=== PATIENT | male | born 1970 | race American Indian/Alaskan Native ===

== ENCOUNTER 2018-12-17 11:41 | Emergency (ER) | payer OTHER ==
--- NOTE | 2018-12-17 11:59 | Emergency Department Report ---
Blank Doc - Documentation Documentation: This is a 47-year-old male that presents with dizziness and with some fatigue. Stated had an CT with STEMI 2 months ago. Currently denies any chest pain or SOB. Denies any other symptoms. This initial assessment/diagnostic orders/clinical plan/treatment(s) is/are subject to change based on patient's health status, clinical progression and re- assessment by fellow clinical providers in the ED. Further treatment and workup at subsequent clinical providers discretion. Patient/guardians urged not to elope from the ED as their condition may be serious if not clinically assessed and managed. Initial orders include: 1- Patient sent to [facility] for further evaluation and treatment 2- labs 3- EKG
[2018-12-17 12:00] VITALS: BP 147/100
[2018-12-17 12:20] LABS: Basophils % (Auto) 0.5 % (0.0-1.8); Eosinophils # (Auto) 0.1 K/mm3 (0.0-0.4); Eosinophils % (Auto) 0.9 % (0.0-4.3); Hemoglobin 14.8 gm/dl (11.8-15.2); Lymphocytes # (Auto) 2.8 K/mm3 (1.2-5.4); Lymphocytes % (Auto) 45.3 % (13.4-35.0); Mean Corpuscular HGB Conc 35 % (32-34); Mean Corpuscular Volume 95 fl (84-94); Monocytes # (Auto) 0.9 K/mm3 (0.0-0.8); Platelet Count 230 K/mm3 (140-440); Red Blood Count 4.54 M/mm3 (3.65-5.03); Red Cell Distribution Width 12.5 % (13.2-15.2)
[2018-12-17 12:27] LABS: BUN/Creatinine Ratio 8; Blood Urea Nitrogen 8 mg/dL (9-20); Hemolysis Index 8
[2018-12-17 12:39] LABS: Bilirubin,Urine NEG (Negative); Blood,Urine NEG (Negative); Color,Urine Yellow (Yellow); Protein,Urine <15 mg/dL mg/dL (Negative)
== END 2018-12-17 13:00 | disposition left against medical advice (07) ==
LOC: ED 11:41
DX: R42 Dizziness and giddiness (principal); Z53.21 Procedure and treatment not carried out due to patient leaving prior to being seen by health care provider
CPT/HCPCS: 36415; 80048; 81001; 82962; 84484; 85025; 93005; 93010

== ENCOUNTER 2019-03-21 21:35 | Emergency (ER) | payer SELFPAY ==
--- NOTE | 2019-03-21 22:51 | XRay Report ---
CHEST 1 VIEW INDICATION / CLINICAL INFORMATION: Chest Pain. COMPARISON: 03/06/2019 FINDINGS: SUPPORT DEVICES: None. HEART / MEDIASTINUM: No significant abnormality. LUNGS / PLEURA: No significant pulmonary or pleural abnormality. No pneumothorax. ADDITIONAL FINDINGS: No significant additional findings. IMPRESSION: 1. No acute findings. Signer Name: Roland Swenson MD Signed: 03/21/2019 10:47 PM Workstation Name: [id number]
[2019-03-21 22:53] LABS: Basophils # (Auto) 0.1 K/mm3 (0.0-0.1); Basophils % (Auto) 0.9 % (0.0-1.8); Eosinophils # (Auto) 0.1 K/mm3 (0.0-0.4); Eosinophils % (Auto) 0.9 % (0.0-4.3); Hematocrit 41.2 % (35.5-45.6); Hemoglobin 14.1 gm/dl (11.8-15.2); Lymphocytes # (Auto) 3.1 K/mm3 (1.2-5.4); Lymphocytes % (Auto) 50.4 % (13.4-35.0); Mean Corpuscular HGB Conc 34 % (32-34); Mean Corpuscular Volume 94 fl (84-94); Monocytes # (Auto) 0.8 K/mm3 (0.0-0.8); Monocytes % (Auto) 12.6 % (0.0-7.3); Platelet Count 214 K/mm3 (140-440); Red Blood Count 4.36 M/mm3 (3.65-5.03); Red Cell Distribution Width 12.6 % (13.2-15.2)
[2019-03-21 23:04] LABS: INR 1.01 (0.87-1.13); Partial Thromboplastin Time 27.6 Sec. (24.2-36.6)
--- NOTE | 2019-03-21 23:04 | Emergency Department Report ---
ED General Adult HPI - General Chief complaint: High BP Stated complaint: ELEVATED BLOOD PRESSURE, CHEST PAIN Time Seen by Provider: 03/21/19 22:20 Source: patient Mode of arrival: Ambulatory Limitations: No Limitations - History of Present Illness Initial comments: CC: "I'm worried about my blood pressure." HPI: Mr. [place] is a very pleasant 48 yo male with hx of HTN, STEMI in September s/p PCI to LAD who presents with elevated blood pressure readings for several weeks. His medication has been adjusted in the inpatient and outpatient setting. Recently admitted 2 weeks ago for evaluation of chest pain. He denies current or recent chest pain. Denies shortness of breath, headache or any symptoms. His states that blood pressure readings SBP 150-160. He has yet to take his home medications. -: Gradual, week(s) (several) Severity scale (0 -10): 0 Consistency: now resolved Improves with: none Worsens with: none Associated Symptoms: denies other symptoms Treatments Prior to Arrival: other (home medictions) - Related Data Previous Rx's Medication Instructions Recorded Last Taken Type Aspirin [Aspirin EC] 81 mg PO DAILY #30 tablet. 10/06/18 03/06/19 Rx AtorvaSTATin [Lipitor] 40 mg PO QHS #30 tablet 10/06/18 03/05/19 Rx Lisinopril [Zestril TAB] 20 mg PO QDAY #30 tablet 10/06/18 03/05/19 Rx Clopidogrel [Plavix] 75 mg PO QDAY #30 tablet 03/07/19 Unknown Rx Metoprolol [Lopressor TAB] 50 mg PO BID #60 tablet 03/07/19 Unknown Rx Allergies Allergy/AdvReac Type Severity Reaction Status Date / Time No Known Allergies Allergy Verified 11/12/13 06:54 ED Review of Systems ROS: Stated complaint: ELEVATED BLOOD PRESSURE, CHEST PAIN Other details as noted in HPI Comment: All other systems reviewed and negative Constitutional: denies: fever, malaise Cardiovascular: denies: chest pain, palpitations, edema ED Past Medical Hx - Past Medical History Previous Medical History?: Yes Hx Hypertension: Yes Hx Heart Attack/AMI: Yes Hx Congestive Heart Failure: No Hx Diabetes: No Hx Asthma: No Hx COPD: No Hx HIV: No - Surgical History Past Surgical History?: Yes Hx Coronary Stent: Yes (1 stent 10/04/2018) - Social History Smoking Status: Former Smoker Substance Use Type: Marijuana - Medications Home Medications: Home Medications Medication Instructions Recorded Confirmed Last Taken Type Aspirin [Aspirin EC] 81 mg PO DAILY #30 tablet. 10/06/18 03/06/19 03/06/19 Rx AtorvaSTATin [Lipitor] 40 mg PO QHS #30 tablet 10/06/18 03/06/19 03/05/19 Rx Lisinopril [Zestril TAB] 20 mg PO QDAY #30 tablet 10/06/18 03/06/19 03/05/19 Rx Clopidogrel [Plavix] 75 mg PO QDAY #30 tablet 03/07/19 Unknown Rx Metoprolol [Lopressor TAB] 50 mg PO BID #60 tablet 03/07/19 Unknown Rx ED Physical Exam - General Limitations: No Limitations General appearance: alert, in no apparent distress - Head Head exam: Present: atraumatic, normocephalic - Eye Eye exam: Present: normal appearance - ENT ENT exam: Present: mucous membranes moist - Neck Neck exam: Present: normal inspection, full ROM - Respiratory Respiratory exam: Present: normal lung sounds bilaterally. Absent: respiratory distress, wheezes, rales, rhonchi - Cardiovascular Cardiovascular Exam: Present: regular rate, normal rhythm, normal heart sounds. Absent: systolic murmur, diastolic murmur, rubs, gallop - GI/Abdominal GI/Abdominal exam: Present: soft, normal bowel sounds. Absent: distended, tenderness, guarding, rebound - Rectal Rectal exam: Present: deferred - Extremities Exam Extremities exam: Present: normal inspection - Back Exam Back exam: Present: normal inspection - Neurological Exam Neurological exam: Present: alert, oriented X3 - Psychiatric Psychiatric exam: Present: normal affect, normal mood - Skin Skin exam: Present: warm, dry, intact, normal color. Absent: rash ED Course Vital Signs 03/21/19 03/21/19 21:54 22:19 Temperature 98.3 F 98.3 F Pulse Rate 77 74 Respiratory 16 13 Rate Blood Pressure 160/100 Blood Pressure 157/100 [Left] O2 Sat by Pulse 99 100 Oximetry ED Medical Decision Making - Lab Data Result diagrams: 03/21/19 22:30 - EKG Data EKG shows normal: sinus rhythm, axis, intervals, QRS complexes, ST-T waves Rate: normal - EKG Data Interpretation: normal EKG - Radiology Data Radiology results: report reviewed cxr: NAP - Medical Decision Making Hypertensive Urgency Asymptomatic without treatment in ED BP decreased to 139/89 currently no adjustment to medication needed No indication of ACS or end organ damage. dc'd home EKG CXR labs all within normal limits Critical care attestation.: If time is entered above; I have spent that time in minutes in the direct care of this critically ill patient, excluding procedure time. ED Disposition Clinical Impression: Hypertensive urgency, Asymptomatic hypertensive urgency, History of ST e levation myocardial infarction (STEMI) Disposition: DC-01 TO HOME OR SELFCARE Is pt being admited?: No Does the pt Need Aspirin: No Condition: Stable Instructions: Hypertension (ED) Additional Instructions: Please continue taking your medication. Please take your blood pressure readings to your heart doctor. Please take this paperwork to your next doctor appointment. Referrals: AZRA LARSON MD [Staff Physician] - 3-5 Days Forms: Work/School Release Form(ED)
[2019-03-21 23:14] LABS: BUN/Creatinine Ratio 12; Blood Urea Nitrogen 11 mg/dL (9-20); Calcium 8.8 mg/dL (8.4-10.2); Hemolysis Index 7
[2019-03-22 00:36] VITALS: BP 135/82
== END 2019-03-21 23:30 | disposition home or self-care (01) ==
LOC: ED 21:35
DX: I25.2 Old myocardial infarction (principal); I16.0 Hypertensive urgency; I10 Essential (primary) hypertension; F12.10 Cannabis abuse, uncomplicated; Z87.891 Personal history of nicotine dependence
CPT/HCPCS: 36415; 71045; 80048; 84484; 85025; 85610; 85730; 93005; 93010

== ENCOUNTER 2019-04-30 10:41 | Emergency (ER) | payer SELFPAY ==
[2019-04-30] MEDS ORDERED: ASPIRIN 81 MG TAB CHEW PO ONE (11:13)
[2019-04-30] MEDS ORDERED: ASPIRIN 81 MG TAB CHEW ONE (11:16)
--- NOTE | 2019-04-30 11:16 | Event Note ---
ED Screening Note Date of service: 04/30/19 Time: 11:11 ED Screening Note: Pt complains of SOB and elevated BP x yesterday SOB with exertion +CP +hx of [place] 2019 with heart stents This initial assessment/diagnostic orders/clinical plan/treatment(s) is/are subject to change based on patients health status, clinical progression and re- assessment by fellow clinical providers in the ED. Further treatment and workup at subsequent clinical providers discretion. Patient/guardian urged not to elope from the ED as their condition may be serious if not clinically assessed and managed. Initial orders include: Labs CXR aspirin
--- NOTE | 2019-04-30 12:24 | XRay Report ---
CHEST PA AND LATERAL VIEWS INDICATION: Chest Pain. COMPARISON: 03/21/2019. FINDINGS: Support devices: None. Heart: Within normal limits. Lungs/Pleura: No acute pulmonary or pleural findings. No acute skeletal abnormality. IMPRESSION: 1. No significant abnormality. Signer Name: Eugenio Calhoun MD Signed: 04/30/2019 12:20 PM Workstation Name: [id number]
[2019-04-30 12:42] LABS: Hematocrit 46.2 % (35.5-45.6); Hemoglobin 15.4 gm/dl (11.8-15.2); Mean Corpuscular HGB Conc 33 % (32-34); Mean Corpuscular Volume 94 fl (84-94); Red Blood Count 4.89 M/mm3 (3.65-5.03); Red Cell Distribution Width 12.6 % (13.2-15.2)
[2019-04-30 13:08] LABS: Alanine Aminotransferase 32 units/L (7-56); Albumin 4.6 g/dL (3.9-5); BUN/Creatinine Ratio 10; Blood Urea Nitrogen 10 mg/dL (9-20); Calcium 9.1 mg/dL (8.4-10.2); Hemolysis Index 6
--- NOTE | 2019-04-30 13:49 | Emergency Department Report ---
ED General Adult HPI - General Chief complaint: Dyspnea/Respdistress Stated complaint: SOB/HBP/HX OF STINT Time Seen by Provider: 04/30/19 11:11 Source: patient Mode of arrival: Ambulatory Limitations: No Limitations - History of Present Illness Initial comments: The patient presents to the emergency department with a chief complaint of bilateral chest pain that started on Monday after lifting outdoor pottery. Patient states that any movement of his upper extremities causes pain in his chest. Without movement there is no chest pain but states the patient states since he has a history of NM he wanted to come to the emergency department for evaluation. Patient also complains of fluctuating blood pressures and is currently on lisinopril, metoprolol, Norvasc.The patient denies SOB, abdominal pain, or MALONE. The patient states his BP was greater than 200 systolically at home. states it was 202/150 at home -: Gradual Location: chest Severity scale (0 -10): 5 Quality: aching Consistency: constant Improves with: rest Worsens with: movement Associated Symptoms: denies other symptoms Treatments Prior to Arrival: none - Related Data Previous Rx's Medication Instructions Recorded Last Taken Type Aspirin [Aspirin EC] 81 mg PO DAILY #30 tablet. 10/06/18 03/06/19 Rx AtorvaSTATin [Lipitor] 40 mg PO QHS #30 tablet 10/06/18 03/05/19 Rx Lisinopril [Zestril TAB] 20 mg PO QDAY #30 tablet 10/06/18 03/05/19 Rx Clopidogrel [Plavix] 75 mg PO QDAY #30 tablet 03/07/19 Unknown Rx Metoprolol [Lopressor TAB] 50 mg PO BID #60 tablet 03/07/19 Unknown Rx Allergies Allergy/AdvReac Type Severity Reaction Status Date / Time No Known Allergies Allergy Verified 11/12/13 06:54 ED Review of Systems ROS: Stated complaint: SOB/HBP/HX OF STINT Other details as noted in HPI Constitutional: denies: chills, fever Eyes: denies: eye pain, eye discharge, vision change ENT: denies: ear pain, throat pain Respiratory: denies: cough, shortness of breath, wheezing Cardiovascular: chest pain. denies: palpitations Endocrine: no symptoms reported Gastrointestinal: abdominal pain. denies: nausea, diarrhea Genitourinary: denies: urgency, dysuria Musculoskeletal: denies: back pain, joint swelling, arthralgia Skin: denies: rash, lesions Neurological: denies: headache, weakness, paresthesias Psychiatric: denies: anxiety, depression Hematological/Lymphatic: denies: easy bleeding, easy bruising ED Past Medical Hx - Past Medical History Hx Hypertension: Yes Hx Heart Attack/AMI: Yes Hx Congestive Heart Failure: No Hx Diabetes: No Hx Asthma: No Hx COPD: No Hx HIV: No - Surgical History Past Surgical History?: Yes Hx Coronary Stent: Yes (1 stent 10/04/2018) - Social History Smoking Status: Former Smoker Substance Use Type: Alcohol - Medications Home Medications: Home Medications Medication Instructions Recorded Confirmed Last Taken Type Aspirin [Aspirin EC] 81 mg PO DAILY #30 tablet. 10/06/18 03/06/19 03/06/19 Rx AtorvaSTATin [Lipitor] 40 mg PO QHS #30 tablet 10/06/18 03/06/19 03/05/19 Rx Lisinopril [Zestril TAB] 20 mg PO QDAY #30 tablet 10/06/18 03/06/19 03/05/19 Rx Clopidogrel [Plavix] 75 mg PO QDAY #30 tablet 03/07/19 Unknown Rx Metoprolol [Lopressor TAB] 50 mg PO BID #60 tablet 03/07/19 Unknown Rx ED Physical Exam - General Limitations: No Limitations General appearance: alert, in no apparent distress - Head Head exam: Present: atraumatic, normocephalic - Eye Eye exam: Present: normal appearance, PERRL, EOMI - ENT ENT exam: Present: mucous membranes moist - Neck Neck exam: Present: normal inspection - Respiratory Respiratory exam: Present: normal lung sounds bilaterally, chest wall tenderness (chest wall tenderness to palpation bilaterally). Absent: respiratory distress - Cardiovascular Cardiovascular Exam: Present: regular rate, normal rhythm. Absent: systolic murmur, diastolic murmur, rubs, gallop - GI/Abdominal GI/Abdominal exam: Present: soft, tenderness (tenderness to palpation of right lower quadrant of abdomen and), normal bowel sounds. Absent: distended - Rectal Rectal exam: Present: deferred - Extremities Exam Extremities exam: Present: normal inspection - Back Exam Back exam: Present: normal inspection - Neurological Exam Neurological exam: Present: alert, oriented X3, CN II-XII intact. Absent: motor sensory deficit - Psychiatric Psychiatric exam: Present: normal affect, normal mood - Skin Skin exam: Present: warm, dry, intact, normal color. Absent: rash ED Course Vital Signs 04/30/19 04/30/19 04/30/19 11:08 12:30 13:30 Temperature 98.3 F Pulse Rate 66 60 Respiratory 20 13 Rate Blood Pressure 180/106 165/101 139/90 O2 Sat by Pulse 100 98 99 Oximetry ED Medical Decision Making - Lab Data Result diagrams: 04/30/19 12:23 04/30/19 12:23 Lab Results 04/30/19 04/30/19 Range/Units 12:23 12:23 WBC 6.5 (4.5-11.0) K/mm3 RBC 4.89 (3.65-5.03) M/mm3 Hgb 15.4 H (11.8-15.2) gm/dl Hct 46.2 H (35.5-45.6) % MCV 94 (84-94) fl MCH 32 (28-32) pg MCHC 33 (32-34) % RDW 12.6 L (13.2-15.2) % Sodium 142 (137-145) mmol/L Potassium 4.2 (3.6-5.0) mmol/L Chloride 104.5 (98-107) mmol/L Carbon Dioxide 24 (22-30) mmol/L Anion Gap 18 mmol/L BUN 10 (9-20) mg/dL Creatinine 1.0 (0.8-1.5) mg/dL Estimated GFR > 60 ml/min BUN/Creatinine Ratio 10 % Glucose 105 H (75-100) mg/dL Calcium 9.1 (8.4-10.2) mg/dL Total Bilirubin 1.10 (0.1-1.2) mg/dL AST 27 (5-40) units/L ALT 32 (7-56) units/L Alkaline Phosphatase 76 (35-129) units/L Troponin T < 0.010 (0.00-0.029) ng/mL NT-Pro-B Natriuret Pep 116.9 (0-450) pg/mL Total Protein 7.2 (6.3-8.2) g/dL Albumin 4.6 (3.9-5) g/dL Albumin/Globulin Ratio 1.8 % - EKG Data -: EKG Interpreted by Nv EKG shows normal: sinus rhythm Rate: normal - Radiology Data Radiology results: report reviewed - Medical Decision Making Results discussed with patient Critical care attestation.: If time is entered above; I have spent that time in minutes in the direct care of this critically ill patient, excluding procedure time. ED Disposition Clinical Impression: Hypertension, Nonspecific chest pain, Chest wall pain Disposition: DC- TO HOME OR SELFCARE Is pt being admited?: No Does the pt Need Aspirin: No Condition: Stable Instructions: Hypertension (ED), Noncardiac Chest Pain (ED), Chest Pain (ED) Additional Instructions: return if worse Referrals: ERIKA JAUREGUI MD [Staff Physician] - 3-5 Days MURALI LARSON MD [Staff Physician] - 3-5 Days Time of Disposition: 14:54
[2019-04-30 14:14] LABS: Platelet Count 234 K/mm3 (140-440)
[2019-04-30 15:14] VITALS: BP 150/92
== END 2019-04-30 15:08 | disposition home or self-care (01) ==
LOC: ED 10:41
DX: R07.89 Other chest pain (principal); I25.2 Old myocardial infarction; I10 Essential (primary) hypertension; Z95.5 Presence of coronary angioplasty implant and graft; Z87.891 Personal history of nicotine dependence
CPT/HCPCS: 36415; 71046; 80053; 83880; 84484; 85027; 93005; 93010

== ENCOUNTER 2019-07-06 13:29 | Emergency (ER) | payer SELFPAY ==
--- NOTE | 2019-07-06 13:39 | Event Note ---
ED Screening Note Date of service: 07/06/19 Time: 13:37 ED Screening Note: Pt complains of itchy burning rash x 2 weeks states daughter had scabies 2 months ago-tried permethrin but did not help This initial assessment/diagnostic orders/clinical plan/treatment(s) is/are subject to change based on patients health status, clinical progression and re- assessment by fellow clinical providers in the ED. Further treatment and workup at subsequent clinical providers discretion. Patient/guardian urged not to elope from the ED as their condition may be serious if not clinically assessed and managed. Initial orders include: ACC
[2019-07-06 13:40] VITALS: BP 155/103
--- NOTE | 2019-07-06 17:42 | Emergency Department Report ---
ED General Adult HPI - General Chief complaint: Skin Rash Stated complaint: RASH Time Seen by Provider: 07/06/19 13:36 Source: patient Mode of arrival: Ambulatory Limitations: No Limitations - History of Present Illness Initial comments: Pt complains of itchy burning rash x 2 weeks. States his daughter had scabies 2 months ago-tried permethrin but did not help. Denies others in home with same symptoms. Pt also denies fever, drainage, cough, or fatigue. -: Sudden Consistency: constant Improves with: none Worsens with: none Treatments Prior to Arrival: other - Related Data Previous Rx's Medication Instructions Recorded Last Taken Type Aspirin [Aspirin EC] 81 mg PO DAILY #30 tablet. 10/06/18 03/06/19 Rx AtorvaSTATin [Lipitor] 40 mg PO QHS #30 tablet 10/06/18 03/05/19 Rx lisinopriL [Zestril TAB] 20 mg PO QDAY #30 tablet 10/06/18 03/05/19 Rx Clopidogrel [Plavix] 75 mg PO QDAY #30 tablet 03/07/19 Unknown Rx Metoprolol [Lopressor TAB] 50 mg PO BID #60 tablet 03/07/19 Unknown Rx Prednisone [predniSONE 10 mg 10 mg PO .TAPER #1 tab.ds.pk 07/06/19 Unknown Rx (6-Day Pack, 21 Tabs)] Triamcinolone Acetonide 80 gm TP TID PRN 7 Days #1 tube 07/06/19 Unknown Rx Allergies Allergy/AdvReac Type Severity Reaction Status Date / Time No Known Allergies Allergy Verified 11/12/13 06:54 ED Review of Systems ROS: Stated complaint: RASH Other details as noted in HPI Comment: All other systems reviewed and negative Skin: rash ED Past Medical Hx - Past Medical History Hx Hypertension: Yes Hx Heart Attack/AMI: Yes Hx Congestive Heart Failure: No Hx Diabetes: No Hx Asthma: No Hx COPD: No Hx HIV: No - Surgical History Hx Coronary Stent: Yes (1 stent 10/04/2018) - Social History Smoking Status: Never Smoker Substance Use Type: Alcohol - Medications Home Medications: Home Medications Medication Instructions Recorded Confirmed Last Taken Type Aspirin [Aspirin EC] 81 mg PO DAILY #30 tablet. 10/06/18 03/06/19 03/06/19 Rx AtorvaSTATin [Lipitor] 40 mg PO QHS #30 tablet 04/03/06/19 03/05/19 Rx lisinopriL [Zestril TAB] 20 mg PO QDAY #30 tablet 10/06/18 03/06/19 03/05/19 Rx Clopidogrel [Plavix] 75 mg PO QDAY #30 tablet 03/07/19 Unknown Rx Metoprolol [Lopressor TAB] 50 mg PO BID #60 tablet 03/07/19 Unknown Rx Prednisone [predniSONE 10 mg 10 mg PO .TAPER #1 tab.ds.pk 07/06/19 Unknown Rx (6-Day Pack, 21 Tabs)] Triamcinolone Acetonide 80 gm TP TID PRN 7 Days #1 tube 07/06/19 Unknown Rx ED Physical Exam - General Limitations: No Limitations General appearance: alert, in no apparent distress - Head Head exam: Present: atraumatic, normocephalic - Eye Eye exam: Present: normal appearance. Absent: scleral icterus - ENT ENT exam: Present: normal orophraynx, mucous membranes moist - Respiratory Respiratory exam: Absent: respiratory distress - Cardiovascular Cardiovascular Exam: Present: regular rate - Neurological Exam Neurological exam: Present: alert, oriented X3 - Psychiatric Psychiatric exam: Present: normal affect, normal mood - Skin Skin exam: Present: warm, dry, intact, rash (dry papular nontender rash noted to right axilla, left thorax, lower back, and right hip. No erythema noted) ED Course Vital Signs 07/06/19 13:35 Temperature 98.2 F Pulse Rate 80 Respiratory 16 Rate Blood Pressure 155/103 O2 Sat by Pulse 100 Oximetry ED Medical Decision Making - Medical Decision Making Pt here with itchy rash x 2 weeks. No improvement with permethrin. Will treat for contact dermatitis. Pt is nontoxic and stable for d/c home. Pt to f/u with PCP. Discussed strict return precautions in detail with pt who states understanding. Critical care attestation.: If time is entered above; I have spent that time in minutes in the direct care of this critically ill patient, excluding procedure time. ED Disposition Clinical Impression: Rash Disposition: -01 TO HOME OR SELFCARE Is pt being admited?: No Condition: Stable Instructions: Contact Dermatitis (ED) Prescriptions: Prednisone [predniSONE 10 mg (6-Day Pack, 21 Tabs)] 10 mg PO .TAPER #1 tab.ds.pk Triamcinolone Acetonide 80 gm TP TID PRN 7 Days #1 tube PRN Reason: itching Referrals: AN ROBLES MD [Staff Physician] - 3-5 Days
== END 2019-07-06 17:54 | disposition home or self-care (01) ==
LOC: ED 13:29
DX: R21 Rash and other nonspecific skin eruption (principal); I10 Essential (primary) hypertension; I25.2 Old myocardial infarction; Z79.899 Other long term (current) drug therapy
CPT/HCPCS: 99281

== ENCOUNTER 2019-09-09 11:15 | Inpatient (IN) | payer OTHER ==
[2019-09-09] MEDS ORDERED: ASPIRIN 325 MG TAB PO ONE (11:41)
--- NOTE | 2019-09-09 12:36 | XRay Report ---
CHEST 2 VIEWS INDICATION: Chest Pain. COMPARISON: 04/30/2019 FINDINGS: Support devices: None. Heart: Within normal limits. Pulmonary vasculature: Normal. Lungs/pleura: No acute air space or interstitial disease. No pneumothorax. Additional findings: None. IMPRESSION: 1. No significant abnormality. Signer Name: Merlin Winchester MD Signed: 09/09/2019 12:32 PM Workstation Name: [id number]
--- NOTE | 2019-09-09 12:39 | Emergency Department Report ---
ED Chest Pain HPI - General Chief Complaint: Chest Pain Stated Complaint: CHEST PAIN, SOB, HAS STINT IN HEART Time Seen by Provider: 09/09/19 12:22 Source: patient Mode of arrival: Ambulatory Limitations: Other - History of Present Illness Initial Comments: 48-year-old male with a past medical history of [place] with stent placement October 04, 2018 and hypertension presents to the hospital complains of chest tightness, shortness of breath, lightheadedness since yesterday. While at rest yesterday patient had chest tightness with associated shortness of breath, dizziness, and diaphoresis. Patient had one episode of vomiting during the day. Pain lasted for several hours before resolving. Has not had any pain today. Patient also complains of a runny nose occasional dry cough with subjective fever x 2 days but it has been breaking with otc meds. states pt has been sick x 1 week. Patient also states has been experiencing shortness of breath since last time he was here and is concerned that he might have anxiety. He denies recent travel, calf tenderness, leg edema, history of PE/DVT, sick contact exposure or known COVID 19 exposure. Patient states he stopped smoking and has been compliant with meds. Pt is unable to read or write and his assists with consenting him for treatment when in hospital. - Related Data Previous Rx's Medication Instructions Recorded Last Taken Type Aspirin [Aspirin EC] 81 mg PO DAILY #30 tablet. 10/06/18 03/06/19 Rx AtorvaSTATin [Lipitor] 40 mg PO QHS #30 tablet 10/06/18 03/05/19 Rx lisinopriL [Zestril TAB] 20 mg PO QDAY #30 tablet 10/06/18 03/05/19 Rx Clopidogrel [Plavix] 75 mg PO QDAY #30 tablet 03/07/19 Unknown Rx Metoprolol [Lopressor TAB] 50 mg PO BID #60 tablet 03/07/19 Unknown Rx Prednisone [predniSONE 10 mg 10 mg PO .TAPER #1 tab.ds.pk 07/06/19 Unknown Rx (6-Day Pack, 21 Tabs)] Triamcinolone Acetonide 80 gm TP TID PRN 7 Days #1 tube 07/06/19 Unknown Rx Allergies Allergy/AdvReac Type Severity Reaction Status Date / Time No Known Allergies Allergy Verified 11/12/13 06:54 Heart Score - HEART Score History: Moderately suspicious EKG: Non-specific Age: 45-65 Risk factors: > 3 risk factors or hx of atherosclerotic disease Troponin: < normal limit HEART Score: 5 ED Review of Systems ROS: Stated complaint: CHEST PAIN, SOB, HAS STINT IN HEART Other details as noted in HPI Comment: All other systems reviewed and negative ED Past Medical Hx - Past Medical History Previous Medical History?: Yes Hx Hypertension: Yes Hx Heart Attack/AMI: Yes Hx Congestive Heart Failure: No Hx Diabetes: No Hx Asthma: No Hx COPD: No Hx HIV: No - Surgical History Past Surgical History?: Yes Hx Coronary Stent: Yes (1 stent 10/04/2018) - Social History Smoking Status: Never Smoker Substance Use Type: Alcohol - Medications Home Medications: Home Medications Medication Instructions Recorded Confirmed Last Taken Type Aspirin [Aspirin EC] 81 mg PO DAILY #30 tablet. 10/06/18 03/06/19 03/06/19 Rx AtorvaSTATin [Lipitor] 40 mg PO QHS #30 tablet 10/06/18 03/06/19 03/05/19 Rx lisinopriL [Zestril TAB] 20 mg PO QDAY #30 tablet 10/06/18 03/06/19 03/05/19 Rx Clopidogrel [Plavix] 75 mg PO QDAY #30 tablet 03/07/19 Unknown Rx Metoprolol [Lopressor TAB] 50 mg PO BID #60 tablet 03/07/19 Unknown Rx Prednisone [predniSONE 10 mg 10 mg PO .TAPER #1 tab.ds.pk 07/06/19 Unknown Rx (6-Day Pack, 21 Tabs)] Triamcinolone Acetonide 80 gm TP TID PRN 7 Days #1 tube 07/06/19 Unknown Rx ED Physical Exam - General Limitations: Other - Other Other exam information: General: No acute distress Head: Atraumatic Eyes: normal appearance ENT: Moist mucous membranes Neck: Normal appearance, no midline tenderness Chest: mild rhonchi left base, left post thoracic tenderness, mild CV: Regular rate and rhythm Abdomen: Soft, normal bowel sounds, nontender, nondistended, no rebound or guarding Back: Normal inspection Extremity: Normal inspection, full range of motion, no calf tenderness or leg edema Neuro: Alert O x 3, no facial asymmetry, speech clear, no gross motor sensory deficit Psych: Appropriate behavior Skin: No rash ED Course Vital Signs 0309/09/19 09/09/19 11:40 13:53 14:01 Temperature 97.5 F L Pulse Rate 66 64 Respiratory 18 14 Rate Blood Pressure 160/92 Blood Pressure 174/110 [Right] O2 Sat by Pulse 98 100 100 Oximetry 09/09/19 09/09/19 09/09/19 14:15 14:35 14:56 Temperature Pulse Rate 64 91 H Respiratory 10 L 16 19 Rate Blood Pressure 160/92 Blood Pressure [Right] O2 Sat by Pulse 99 99 Oximetry 09/09/19 09/09/19 09/09/19 15:00 15:16 15:30 Temperature Pulse Rate 78 64 85 Respiratory Rate Blood Pressure 160/92 156/93 Blood Pressure [Right] O2 Sat by Pulse 99 99 99 Oximetry - Consultations Consultation #1: 09/09/19 15:59 I spoke to patient's on the phone and informed her that pt is in isolation until covi19 testing/results reviewed. She does not have any symptoms. She was informed to self isolate for 14 days. DMITRY score - Dmitry Score Age > 65: (0) No Aspirin use within the Past 7 Days: (1) Yes 3 or more CAD Risk Factors: (1) Yes 2 or more Angina events in past 24 hrs: (1) Yes Known CAD with more than 50% Stenosis: (0) No Elevated Cardiac Markers: (0) No ST Deviation Greater than 0.5mm: (0) No DMITRY Score: 3 ED Medical Decision Making - Lab Data Result diagrams: 09/09/19 12:52 09/09/19 12:52 Lab Results 09/09/19 09/09/19 09/09/19 Range/Units 12:52 12:52 12:52 WBC 4.8 (4.5-11.0) K/mm3 RBC 4.91 (3.65-5.03) M/mm3 Hgb 15.5 H (11.8-15.2) gm/dl Hct 45.5 (35.5-45.6) % MCV 93 (84-94) fl MCH 32 (28-32) pg MCHC 34 (32-34) % RDW 12.4 L (13.2-15.2) % Plt Count 202 (140-440) K/mm3 Add Manual Diff Complete Total Counted 100 Seg Neutrophils % Car Pincher Seg Neuts % (Manual) 38.0 L (40.0-70.0) % Band Neutrophils % 0 % Lymphocytes % (Manual) 50.0 H (13.4-35.0) % Reactive Lymphs % (Man) 0 % Monocytes % (Manual) 12.0 H (0.0-7.3) % Eosinophils % (Manual) 0 (0.0-4.3) % Basophils % (Manual) 0 (0.0-1.8) % Metamyelocytes % 0 % Myelocytes % 0 % Promyelocytes % 0 % Blast Cells % 0 % Nucleated RBC % Not Reportable Seg Neutrophils # Man 1.8 (1.8-7.7) K/mm3 Band Neutrophils # 0.0 K/mm3 Lymphocytes # (Manual) 2.4 (1.2-5.4) K/mm3 Abs React Lymphs (Man) 0.0 K/mm3 Monocytes # (Manual) 0.6 (0.0-0.8) K/mm3 Eosinophils # (Manual) 0.0 (0.0-0.4) K/mm3 Basophils # (Manual) 0.0 (0.0-0.1) K/mm3 Metamyelocytes # 0.0 K/mm3 Myelocytes # 0.0 K/mm3 Promyelocytes # 0.0 K/mm3 Blast Cells # 0.0 K/mm3 WBC Morphology Not Reportable Hypersegmented Neuts Not Reportable Hyposegmented Neuts Not Reportable Hypogranular Neuts Not Reportable Smudge Cells Not Reportable Toxic Granulation Not Reportable Toxic Vacuolation Not Reportable Dohle Bodies Not Reportable Pelger-Huet Anomaly Not Reportable Jean Rods Not Reportable Platelet Estimate Cons Clumped Platelets Not Reportable Plt Clumps, EDTA Not Reportable Large Platelets Not Reportable Giant Platelets Not Reportable Platelet Satelliting Not Reportable Plt Morphology Comment Not Reportable RBC Morphology Normal Dimorphic RBCs Not Reportable Polychromasia Not Reportable Hypochromasia Not Reportable Poikilocytosis Not Reportable Anisocytosis Not Reportable Microcytosis Not Reportable Macrocytosis Not Reportable Spherocytes Not Reportable Pappenheimer Bodies Not Reportable Sickle Cells Not Reportable Target Cells Not Reportable Tear Drop Cells Not Reportable Ovalocytes Not Reportable Helmet Cells Not Reportable Baum-Luquillo Bodies Not Reportable Argos Rings Not Reportable Trang Cells Not Reportable Bite Cells Not Reportable Crenated Cell Not Reportable Elliptocytes Not Reportable Acanthocytes (Spur) Not Reportable Rouleaux Not Reportable Hemoglobin C Crystals Not Reportable Schistocytes Not Reportable Malaria parasites Not Reportable Jasper Bodies Not Reportable Hem Pathologist Commnt No PT 12.6 (12.2-14.9) Sec. INR 0.93 (0.87-1.13) D-Dimer 438.38 H (0-234) ng/mlDDU Sodium 140 (137-145) mmol/L Potassium 4.4 (3.6-5.0) mmol/L Chloride 102.5 (98-107) mmol/L Carbon Dioxide 23 (22-30) mmol/L Anion Gap 19 mmol/L BUN 8 L (9-20) mg/dL Creatinine 1.2 (0.8-1.5) mg/dL Estimated GFR > 60 ml/min BUN/Creatinine Ratio 7 % Glucose 87 (75-100) mg/dL Calcium 9.3 (8.4-10.2) mg/dL Troponin T < 0.010 (0.00-0.029) ng/mL - EKG Data -: EKG Interpreted by [facility] EKG shows normal: sinus rhythm, ST-T waves (no stemi) Rate: normal - EKG Data When compared to previous EKG there are: no significant change - Radiology Data Radiology results: report reviewed CHEST 2 VIEWS INDICATION: Chest Pain. COMPARISON: 04/30/2019 FINDINGS: Support devices: None. Heart: Within normal limits. Pulmonary vasculature: Normal. Lungs/pleura: No acute air space or interstitial disease. No pneumothorax. Additional findings: None. IMPRESSION: 1. No significant abnormality. - Medical Decision Making pt initially c/o chest pain with persistant sob and mild uri sx. CXR with b/l pneumonia without leukocytosis, lymphopenia, or hypoxia. Patient is a cardiac patient with history of stent. CT chest results reviewed patient placed in re spiratory isolation and request will be sent for possible COVID19 testing. Patient will be treated for community-acquired pneumonia with Rocephin and azithromycin and supportive treatment. Troponin negative with no acute EKG findings. informed and encouraged to self isolate 14 days. She denies any sx currently. - Differential Diagnosis cad, chf, pe, pneumonia Critical Care Time: No Critical care attestation.: If time is entered above; I have spent that time in minutes in the direct care of this critically ill patient, excluding procedure time. ED Disposition Clinical Impression: Stented coronary artery, Bilateral pneumonia Disposition: OP ADMIT IP TO THIS HOSP Is pt being admited?: Yes Condition: Stable Time of Disposition: 15:28
[2019-09-09 13:25] LABS: Hematocrit 45.5 % (35.5-45.6); Hemoglobin 15.5 gm/dl (11.8-15.2); Mean Corpuscular HGB Conc 34 % (32-34); Mean Corpuscular Volume 93 fl (84-94); Platelet Count 202 K/mm3 (140-440); Red Blood Count 4.91 M/mm3 (3.65-5.03); Red Cell Distribution Width 12.4 % (13.2-15.2)
[2019-09-09 13:33] LABS: INR 0.93 (0.87-1.13)
[2019-09-09 13:39] LABS: BUN/Creatinine Ratio 7; Blood Urea Nitrogen 8 mg/dL (9-20); Calcium 9.3 mg/dL (8.4-10.2); Hemolysis Index 2
[2019-09-09 14:48] LABS: Basophils % (Manual) 0 % (0.0-1.8); Eosinophils % (Manual) 0 % (0.0-4.3); Total Cells Counted 100
[2019-09-09 14:49] LABS: Platelet Estimate Cons; RBC Morphology Normal
--- NOTE | 2019-09-09 15:05 | Cat Scan Report ---
CTA CHEST WITH CONTRAST INDICATION : elevated ddimer, cp, sob. TECHNIQUE: Axial imaging performed through the chest, with contrast bolus timing set to maximize opa cification of the pulmonary arteries. 3-plane MIP reformatted images were obtained. All CT scans at this location are performed using CT dose reduction for ALARA by means of automated exposure control. 100 mL of intravenous contrast administered. Consent was obtained prior to the administration of cont rast. COMPARISON: A same day chest x-ray. FINDINGS: Bolus: Contrast bolus timing is adequate. PTE: No filling defect is present to suggest PTE. Mediastinum: Heart and great vessels appear normal. No pathologic mediastinal adenopathy. Lungs: Numerous bilateral multilobar small patchy lung opacities diffusely involving the right upper lobe and the left lower lobe. Fewer patchy lung opacities of the left upper lobe, right middle lobe and right lower lobe. No pulmonary consolidation. No pleural effusion. Upper abdomen: Limited imaging of the upper abdomen shows nothing acute. Bones: Degenerative changes in the spine with nothing acute. IMPRESSION: 1. Negative for PTE. 2. Multi lobar bilateral patchy pneumonia. Signer Name: Merlin Winchester MD Signed: 09/09/2019 3:01 PM Workstation Name: [id number]
[2019-09-09] MEDS ORDERED: cefTRIAXone/NS 1 GM/50 ML 1 GM/50 ML BAG IV ONE (15:18)
[2019-09-09] MEDS ORDERED: AZITHROMYCIN 500 MG in SODIUM CHLORIDE 0.9% 250ML 250 ML IV ONE (16:00)
--- NOTE | 2019-09-09 16:50 | History and Physical Report ---
History of Present Illness Chief complaint: It is hard for me to breathe and I keep coughing History of present illness: 48 YO Male with Nicotine Dependence, SD, CAD S/P Stent Placement currently on DAPT, Vertigo presents to ED for evaluation. Pt states that he has experienced shortness of breath, dry cough, subjective fever, generalized weakness, rhinorrhea over the past 2 days with persistent symptoms over the same timeframe. Patient states that symptoms have not resolved with [id number] medications. Patient also reports chest tightness, dyspnea on exertion. Patient transported to [facility] via private vehicle for further evaluation and care. Patient seen and evaluated in the emergency department. Lab and imaging studies reviewed. Patient underwent CT scan of the chest as well as chest x-ray which r evealed bilateral patchy infiltrate consistent with pneumonia. Patient admitted to medical floor and initiated on pneumonia protocol due to increased risk of pulmonary decompensation. Patient also initiated on [place] 19 protocol. Documentation completed in ED and sent to health department. Patient denies palpitations, prolonged travel/immobility, individual/family history of DVT/PE/bleeding/blood clotting disorders, skin rash, or recent ill contacts. Prior admission on 03/07/2019 reviewed. All medication listed at time of admission has been reconciled. Past History Past Medical History: acute SD, CAD, other (See HPI) Past Surgical History: Other (Cardiac stent placement) Social history: smoking Family history: hypertension Medications and Allergies Allergies Allergy/AdvReac Type Severity Reaction Status Date / Time No Known Allergies Allergy Verified 11/12/13 06:54 Home Medications Medication Instructions Recorded Confirmed Last Taken Type Aspirin [Aspirin EC] 81 mg PO DAILY #30 tablet. 10/06/18 03/06/19 03/06/19 Rx AtorvaSTATin [Lipitor] 40 mg PO QHS #30 tablet 10/06/18 03/06/19 03/05/19 Rx lisinopriL [Zestril TAB] 20 mg PO QDAY #30 tablet 10/06/18 03/06/19 03/05/19 Rx Clopidogrel [Plavix] 75 mg PO QDAY #30 tablet 03/07/19 Unknown Rx Metoprolol [Lopressor TAB] 50 mg PO BID #60 tablet 03/07/19 Unknown Rx Prednisone [predniSONE 10 mg 10 mg PO .TAPER #1 tab.ds.pk 07/06/19 Unknown Rx (6-Day Pack, 21 Tabs)] Triamcinolone Acetonide 80 gm TP TID PRN 7 Days #1 tube 07/06/19 Unknown Rx Active Meds: Active Medications Azithromycin 500 mg/ Sodium (Chloride) 250 mls @ 250 mls/hr IV ONCE ONE; Protocol Stop: 09/09/19 16:59 Review of Systems Constitutional: fever, fatigue, weakness, no weight loss, no weight gain, no chills, no sweats Ears, nose, mouth and throat: no ear pain, no ear discharge, no tinnitis, no decreased hearing, no nose pain, no nasal congestion Cardiovascular: shortness of breath, dyspnea on exertion, decreased exercise tolerance, no chest pain, no orthopnea, no palpitations, no rapid/irregular heart beat Respiratory: cough, cough with sputum, congestion, no hemoptysis, no wheezing, no pain on inspiration Gastrointestinal: no nausea, no vomiting, no diarrhea, no constipation Genitourinary Male: no hematuria, no flank pain, no discharge, no urinary frequency, no urinary hesitancy Rectal: no pain, no incontinence, no bleeding Musculoskeletal: no neck stiffness, no neck pain, no shooting arm pain, no arm numbness/tingling, no shooting leg pain Integumentary: no rash, no pruritis, no redness, no sores, no wounds Neurological: no transient paralysis, no paralysis, no weakness, no parathesias, no numbness, no tingling, no seizures, no tremors Psychiatric: no anxiety, no memory loss, no change in sleep habits, no sleep disturbances, no insomnia, no hypersomnia, no change in appetite, no suicidal ideation Endocrine: no cold intolerance, no heat intolerance, no polyphagia, no excessive thirst, no polydipsia Hematologic/Lymphatic: no easy bruising, no easy bleeding, no lymphadenopathy, no lymphedema Allergic/Immunologic: no urticaria, no allergic rhinitis, no persistent infections, no anaphylaxis Exam - Constitutional Vitals: Temp Pulse Resp BP Pulse Ox 97.5 F L 85 19 156/93 99 09/09/19 11:40 09/09/19 15:30 09/09/19 14:56 09/09/19 15:30 09/09/19 15:30 General appearance: Present: mild distress - EENT Eyes: Present: PERRL ENT: hearing intact, clear oral mucosa - Neck Neck: Present: supple, normal ROM - Respiratory Respiratory effort: normal Respiratory: bilateral: diminished, rales - Cardiovascular Heart Sounds: Present: S1 & S2. Absent: rub, click - Extremities Extremities: pulses symmetrical, No edema Peripheral Pulses: within normal limits - Abdominal General gastrointestinal: Present: soft, non-tender, non-distended, normal bowel sounds Male genitourinary: Present: normal - Integumentary Integumentary: Present: clear, warm, dry - Musculoskeletal Musculoskeletal: gait normal, strength equal bilaterally - Psychiatric Psychiatric: appropriate mood/affect, intact judgment & insight - Neurologic Neurologic: CNII-XII intact, moves all extremities Results - Labs CBC & Chem 7: 09/09/19 12:52 09/09/19 12:52 Labs: Abnormal lab results 09/09/19 09/09/19 09/09/19 Range/Units 12:52 12:52 12:52 Hgb 15.5 H (11.8-15.2) gm/dl RDW 12.4 L (13.2-15.2) % Seg Neuts % (Manual) 38.0 L (40.0-70.0) % Lymphocytes % (Manual) 50.0 H (13.4-35.0) % Monocytes % (Manual) 12.0 H (0.0-7.3) % D-Dimer 438.38 H (0-234) ng/mlDDU BUN 8 L (9-20) mg/dL Assessment and Plan - Patient Problems (1) Bilateral pneumonia Current Visit: Yes Status: Acute Qualifiers: Lung location: upper lobe of lung Plan to address problem: Pneumonia protocol: Admit to medical floor, chest x-ray, CTA chest, supplemental oxygen, nebulizer therapy as clinically indicated, pulse oximetry, IV antibiotic therapy, blood culture, (2) CAD (coronary artery disease) Current Visit: Yes Status: Acute Qualifiers: Associated angina: without angina Plan to address problem: Continue statin therapy, dual antiplatelet therapy, risk factor reduction, smoking cessation, supportive care. (3) Nicotine dependence unspecified, with withdrawal Current Visit: No Status: Acute Qualifiers: Nicotine product type: cigarettes Qualified Code(s): F17.213 - Nicotine dependence, cigarettes, with withdrawal Plan to address problem: Smoking cessation counseling, supportive care, +15 minutes. (4) HTN (hypertension) Current Visit: No Status: Chronic Qualifiers: Qualified Code(s): I10 - Essential (primary) hypertension Plan to address problem: Monitor blood pressure every shift, continues medical management, supportive care. (5) Coronavirus infection, unspecified Current Visit: Yes Status: Suspected Plan to address problem: Droplet precaution, isolation protocol, documentation sent to healthcare department in ED. Treat pneumonia, supportive care. (6) DVT prophylaxis Current Visit: No Status: Acute Plan to address problem: SCD to bilateral lower extremities while in bed, patient is ambulatory. (7) Advance care planning Current Visit: Yes Status: Acute Plan to address problem: Patient is full code, disease education conducted via telephone. Patient concerned regarding coronavirus testing status. Disease education conducted. Patient and acknowledges understanding and agreement with care plan. +30 minutes.
[2019-09-09] MEDS ORDERED: ACETAMINOPHEN 325 MG TAB PO PRN (16:59)
[2019-09-09] MEDS ORDERED: ONDANSETRON 4 MG/2 ML INJ IV PRN (16:59)
[2019-09-09] MEDS ORDERED: TRIAMCINOLONE ACETONIDE TP PRN (17:01)
[2019-09-09] MEDS ORDERED: ASPIRIN 325 MG TAB ONE (17:08)
[2019-09-09] MEDS ORDERED: TRIAMCINOLONE 0.5% CREAM 15 GM TP PRN (17:19)
[2019-09-09] MEDS: METOPROLOL TARTRATE 50 MG TAB PO SCH (21:30)
[2019-09-10] MEDS ORDERED: hydrALAZINE 20 MG/1 ML INJ IV PRN (00:21)
[2019-09-10] MEDS ORDERED: ZOLPIDEM 5 MG TAB PO ONE (01:00)
[2019-09-10 07:05] LABS: Hematocrit 44.1 % (35.5-45.6); Hemoglobin 15.1 gm/dl (11.8-15.2); Mean Corpuscular HGB Conc 34 % (32-34); Mean Corpuscular Volume 93 fl (84-94); Platelet Count 201 K/mm3 (140-440); Red Blood Count 4.76 M/mm3 (3.65-5.03); Red Cell Distribution Width 12.7 % (13.2-15.2)
[2019-09-10 07:29] LABS: Alanine Aminotransferase 29 units/L (7-56); Albumin 4.3 g/dL (3.9-5); BUN/Creatinine Ratio 11; Blood Urea Nitrogen 11 mg/dL (9-20); Calcium 9.3 mg/dL (8.4-10.2); Hemolysis Index 2
[2019-09-10 09:55] LABS: Basophils % (Manual) 0 % (0.0-1.8); Platelet Estimate Consistent w Auto; RBC Morphology Normal; Total Cells Counted 100
--- NOTE | 2019-09-10 11:06 | Progress Note ---
Assessment and Plan Assessment and plan: CTA chest; negative for PTE, multilobar bilateral patchy pneumonia Chest x-ray; no acute abnormality -- Bilateral pneumonia Current Visit: Yes Status: Acute Pneumonia protocol: Admit to medical floor, chest x-ray, CTA chest, supplemental oxygen, nebulizer therapy as clinically indicated, pulse oximetry, IV antibiotic therapy, blood culture, -- CAD (coronary artery disease) Current Visit: Yes Status: Acute Continue statin therapy, dual antiplatelet therapy, risk factor reduction, smoking cessation, supportive care. --Nicotine dependence unspecified, with withdrawal Current Visit: No Status: Acute Smoking cessation counseling, supportive care, +15 minutes. --HTN (hypertension) Current Visit: No Status: Chronic Monitor blood pressure every shift, continues medical management, supportive care. --Coronavirus infection, unspecified Current Visit: Yes Status: Suspected Droplet precaution, isolation protocol, . Treat pneumonia, supportive care. ID evaluated the patient COVID-19 documentation and [facility] In [facility] --DVT prophylaxis Current Visit: No Status: Acute SCD to bilateral lower extremities while in bed, patient is ambulatory. --Advance care planning Current Visit: Yes Status: Acute Patient is full code, disease education conducted via telephone. Patient concerned regarding coronavirus testing status. Disease education conducted. Patient and acknowledges understanding and agreement with care plan. Monitor closely and adjust management as needed I discussed in detail with the patient's condition, treatment plan Over the phone History Interval history: Patient seen and examined in his room this morning Patient's chart medications reviewed Admitted with bilateral pneumonia, to rule out Covid 19 Patient is anxious, agitated Complains of some cough and body pains Vital signs reviewed Hospitalist Physical - Constitutional Vitals: Temp Pulse Resp BP Pulse Ox 99.2 F 65 20 122/75 98 09/10/19 04:56 09/10/19 04:56 09/10/19 04:56 09/10/19 04:56 09/10/19 04:56 General appearance: Present: mild distress, well-nourished, other (Anxious) - EENT Eyes: Present: PERRL, EOM intact - Neck Neck: Present: supple, normal ROM - Respiratory Respiratory effort: normal Respiratory: bilateral: diminished, rhonchi (Bilateral bases), negative: rales, wheezing - Cardiovascular Rhythm: regular Heart Sounds: Present: S1 & S2 - Extremities Extremities: no ischemia, No edema Peripheral Pulses: within normal limits - Abdominal General gastrointestinal: soft, non-tender, non-distended, normal bowel sounds - Integumentary Integumentary: Present: clear, warm - Psychiatric Psychiatric: appropriate mood/affect, agitated - Neurologic Neurologic: moves all extremities DMITRY score - Dmitry Score Age > 65: (0) No Aspirin use within the Past 7 Days: (1) Yes 3 or more CAD Risk Factors: (1) Yes 2 or more Angina events in past 24 hrs: (1) Yes Known CAD with more than 50% Stenosis: (0) No Elevated Cardiac Markers: (0) No ST Deviation Greater than 0.5mm: (0) No DMITRY Score: 3 Results - Labs CBC & Chem 7: 09/10/19 06:11 09/10/19 06:11 Labs: Laboratory Last Values WBC 5.6 K/mm3 (4.5-11.0) 09/10/19 06:11 RBC 4.76 M/mm3 (3.65-5.03) 09/10/19 06:11 Hgb 15.1 gm/dl (11.8-15.2) 09/10/19 06:11 Hct 44.1 % (35.5-45.6) 09/10/19 06:11 MCV 93 fl (84-94) 09/10/19 06:11 MCH 32 pg (28-32) 09/10/19 06:11 MCHC 34 % (32-34) 09/10/19 06:11 RDW 12.7 % (13.2-15.2) L 09/10/19 06:11 Plt Count 201 K/mm3 (140-440) 09/10/19 06:11 Lymph % (Auto) [employer] Lead Teacher 09/10/19 06:11 Add Manual Diff Complete 09/10/19 06:11 Total Counted 100 09/10/19 06:11 Seg Neutrophils % [employer]ori Lead Teacher 09/10/19 06:11 Seg Neuts % (Manual) 20.0 % (40.0-70.0) L 09/10/19 06:11 Band Neutrophils % 0 % 09/10/19 06:11 Lymphocytes % (Manual) 71.0 % (13.4-35.0) H 09/10/19 06:11 Reactive Lymphs % (Man) 0 % 09/10/19 06:11 Monocytes % (Manual) 8.0 % (0.0-7.3) H 09/10/19 06:11 Eosinophils % (Manual) 1.0 % (0.0-4.3) 09/10/19 06:11 Basophils % (Manual) 0 % (0.0-1.8) 09/10/19 06:11 Metamyelocytes % 0 % 09/10/19 06:11 Myelocytes % 0 % 09/10/19 06:11 Promyelocytes % 0 % 09/10/19 06:11 Blast Cells % 0 % 09/10/19 06:11 Nucleated RBC % Not Reportable 09/10/19 06:11 Seg Neutrophils # Man 1.1 K/mm3 (1.8-7.7) L 09/10/19 06:11 Band Neutrophils # 0.0 K/mm3 09/10/19 06:11 Lymphocytes # (Manual) 4.0 K/mm3 (1.2-5.4) 09/10/19 06:11 Abs React Lymphs (Man) 0.0 K/mm3 09/10/19 06:11 Monocytes # (Manual) 0.4 K/mm3 (0.0-0.8) 09/10/19 06:11 Eosinophils # (Manual) 0.1 K/mm3 (0.0-0.4) 09/10/19 06:11 Basophils # (Manual) 0.0 K/mm3 (0.0-0.1) 09/10/19 06:11 Metamyelocytes # 0.0 K/mm3 09/10/19 06:11 Myelocytes # 0.0 K/mm3 09/10/19 06:11 Promyelocytes # 0.0 K/mm3 09/10/19 06:11 Blast Cells # 0.0 K/mm3 09/10/19 06:11 WBC Morphology Not Reportable 09/10/19 06:11 Hypersegmented Neuts Not Reportable 09/10/19 06:11 Hyposegmented Neuts Not Reportable 09/10/19 06:11 Hypogranular Neuts Not Reportable 09/10/19 06:11 Smudge Cells Not Reportable 09/10/19 06:11 Toxic Granulation Not Reportable 09/10/19 06:11 Toxic Vacuolation Not Reportable 09/10/19 06:11 Dohle Bodies Not Reportable 09/10/19 06:11 Pelger-Huet Anomaly Not Reportable 09/10/19 06:11 Jean Rods Not Reportable 09/10/19 06:11 Platelet Estimate Consistent w auto 09/10/19 06:11 Clumped Platelets Not Reportable 09/10/19 06:11 Plt Clumps, EDTA Not Reportable 09/10/19 06:11 Large Platelets Not Reportable 09/10/19 06:11 Giant Platelets Not Reportable 09/10/19 06:11 Platelet Satelliting Not Reportable 09/10/19 06:11 Plt Morphology Comment Not Reportable 09/10/19 06:11 RBC Morphology Normal 09/10/19 06:11 Dimorphic RBCs Not Reportable 09/10/19 06:11 Polychromasia Not Reportable 09/10/19 06:11 Hypochromasia Not Reportable 09/10/19 06:11 Poikilocytosis Not Reportable 09/10/19 06:11 Anisocytosis Not Reportable 09/10/19 06:11 Microcytosis Not Reportable 09/10/19 06:11 Macrocytosis Not Reportable 09/10/19 06:11 Spherocytes Not Reportable 09/10/19 06:11 Pappenheimer Bodies Not Reportable 09/10/19 06:11 Sickle Cells Not Reportable 09/10/19 06:11 Target Cells Not Reportable 09/10/19 06:11 Tear Drop Cells Not Reportable 09/10/19 06:11 Ovalocytes Not Reportable 09/10/19 06:11 Helmet Cells Not Reportable 09/10/19 06:11 [place] Bodies Not Reportable 09/10/19 06:11 [place] Rings Not Reportable 09/10/19 06:11 Trang Cells Not Reportable 09/10/19 06:11 Bite Cells Not Reportable 09/10/19 06:11 Crenated Cell Not Reportable 09/10/19 06:11 Elliptocytes Not Reportable 09/10/19 06:11 Acanthocytes (Spur) Not Reportable 09/10/19 06:11 Rouleaux Not Reportable 09/10/19 06:11 Hemoglobin C Crystals Not Reportable 09/10/19 06:11 Schistocytes Not Reportable 09/10/19 06:11 Malaria parasites Not Reportable 09/10/19 06:11 [place] Bodies Not Reportable 09/10/19 06:11 Hem Pathologist Commnt No 09/10/19 06:11 PT 12.6 Sec. (12.2-14.9) 09/09/19 12:52 INR 0.93 (0.87-1.13) 09/09/19 12:52 D-Dimer 438.38 ng/mlDDU (0-234) H 09/09/19 12:52 Sodium 142 mmol/L (137-145) 09/10/19 06:11 Potassium 4.2 mmol/L (3.6-5.0) 09/10/19 06:11 Chloride 102.7 mmol/L (98-107) 09/10/19 06:11 Carbon Dioxide 22 mmol/L (22-30) 09/10/19 06:11 Anion Gap 22 mmol/L 09/10/19 06:11 BUN 11 mg/dL (9-20) 09/10/19 06:11 Creatinine 1.0 mg/dL (0.8-1.5) 09/10/19 06:11 Estimated GFR > 60 ml/min 09/10/19 06:11 BUN/Creatinine Ratio 11 % 09/10/19 06:11 Glucose 83 mg/dL (75-100) 09/10/19 06:11 Calcium 9.3 mg/dL (8.4-10.2) 09/10/19 06:11 Total Bilirubin 0.80 mg/dL (0.1-1.2) 09/10/19 06:11 AST 31 units/L (5-40) 09/10/19 06:11 ALT 29 units/L (7-56) 09/10/19 06:11 Alkaline Phosphatase 64 units/L (35-129) 09/10/19 06:11 Troponin T < 0.010 ng/mL (0.00-0.029) 09/09/19 19:50 Total Protein 7.2 g/dL (6.3-8.2) 09/10/19 06:11 Albumin 4.3 g/dL (3.9-5) 09/10/19 06:11 Albumin/Globulin Ratio 1.5 % 09/10/19 06:11 Influenza A (Rapid) Negative (Negative) 09/09/19 Unknown Influenza B (Rapid) Negative (Negative) 09/09/19 Unknown Microbiology: Microbiology 09/09/19 16:42 Peripheral/Venous Blood Culture - Preliminary Culture in Progress 09/09/19 16:42 Peripheral/Venous Blood Culture - Preliminary Culture in Progress Joseph/IV: Voiding Method Toilet IV Catheter Type [Left INT / Saline Lock Antecubital] Active Medications - Current Medications Current Medications: Generic Name Dose Route Start Last Admin Trade Name Freq PRN Reason Stop Dose Admin Acetaminophen 650 mg 09/09/19 16:59 Tylenol PO Q4H PRN Pain MILD(1-3)/Fever >100.5/MALONE Aspirin 81 mg 09/10/19 10:00 Halfprin Ec PO DAILY KEVIN Atorvastatin Calcium 40 mg 09/09/19 22:00 09/09/19 21:30 Lipitor PO 40 mg QHS KEVIN Administration Clopidogrel Bisulfate 75 mg 09/10/19 10:00 Plavix PO QDAY KEVIN Hydralazine HCl 5 mg 09/10/19 00:21 Apresoline IV Q6H PRN Hypertension Lisinopril 20 mg 09/10/19 10:00 Zestril PO QDAY KEVIN Metoprolol Tartrate 50 mg 09/09/19 22:00 09/09/19 21:30 Metoprolol PO 50 mg BID KEVIN Administration Ondansetron HCl 4 mg 09/09/19 16:59 Zofran IV Q8H PRN Nausea And Vomiting Sodium Chloride 10 ml 09/09/19 22:00 09/09/19 21:30 Sodium Chloride Flush Syringe 10 Ml IV 10 ml BID KEVIN Administration Sodium Chloride 10 ml 09/09/19 16:59 Sodium Chloride Flush Syringe 10 Ml IV PRN PRN LINE FLUSH Triamcinolone Acetonide 1 applic 09/09/19 17:19 Kenalog TP TID PRN Itching
[2019-09-10] MEDS: LISINOPRIL 20 MG TAB PO SCH ×2 (11:45→17:13)
[2019-09-10] MEDS: CLOPIDOGREL 75 MG TAB PO SCH (11:45)
[2019-09-10] MEDS: ASPIRIN EC 81 MG TAB PO SCH (11:46)
[2019-09-10] MEDS: METOPROLOL TARTRATE 50 MG TAB PO SCH ×3 (11:46→22:00)
[2019-09-10] MEDS: AZITHROMYCIN 500 MG in SODIUM CHLORIDE 0.9% 250ML 250 ML IV SCH (14:17)
[2019-09-10] MEDS ORDERED: ALPRAZolam 0.5 MG TAB PO ONE (14:53)
[2019-09-10] MEDS: cefTRIAXone/NS 1 GM/50 ML 1 GM/50 ML BAG IV SCH (15:53)
[2019-09-10] MEDS ORDERED: ALPRAZolam 0.25 MG TAB PO ONE (16:00)
--- NOTE | 2019-09-10 16:48 | Consultation ---
History of Present Illness - Reason for Consult Consult date: 09/10/19 - History of Present Illness 48-year-old male past medical history of CAD, vertigo admitted to the hospital with shortness of breath, cough, fever. He notes the symptoms began approximately 2 days prior to admission, and were associated with generalized weakness and rhinorrhea. Symptoms were persistent since onset, and remain today. COVID-19 test request sent to [facility]. Afebrile since admission with a normal white count of 5. Currently receiving ceftriaxone and azithromycin. blood cultures currently pending. Imaging personally reviewed: Chest CT: Multi lobar patchy Review of Systems: Bold if positive, otherwise negative General: fevers, chills, rigors HEENT: visual disturbance, diplopia, eye pain Respiratory: cough, sputum, hemoptysis, shortness of breath Cardiovascular: chest pain, syncope Gastrointestinal: nausea, vomiting, diarrhea, abdominal pain Genitourinary: dysuria, hematuria, flank pain Musculoskeletal: neck pain, back pain, joint pain, edema Neurologic: headaches, seizures Hematologic: easy bruising or bleeding Endocrine: night sweats, acute weight loss Skin: rash, jaundice, redness Psychiatric: suicidal, homicidal ideation Past History Past Medical History: acute [place], CAD, other (See HPI) Past Surgical History: Other (Cardiac stent placement) Social history: smoking Family history: hypertension Medications and Allergies Allergies Allergy/AdvReac Type Severity Reaction Status Date / Time No Known Allergies Allergy Verified 11/12/13 06:54 Home Medications Medication Instructions Recorded Confirmed Last Taken Type Aspirin [Aspirin EC] 81 mg PO DAILY #30 tablet. 10/06/18 09/09/19 09/09/19 Rx AtorvaSTATin [Lipitor] 40 mg PO QHS #30 tablet 10/06/18 09/09/19 09/08/19 Rx lisinopriL [Zestril TAB] 20 mg PO QDAY #30 tablet 10/06/18 09/09/19 09/08/19 Rx Clopidogrel [Plavix] 75 mg PO QDAY #30 tablet 03/07/19 09/09/19 09/08/19 Rx Metoprolol [Lopressor TAB] 50 mg PO BID #60 tablet 03/07/19 09/09/19 09/09/19 Rx Triamcinolone Acetonide 80 gm TP TID PRN 7 Days #1 tube 07/06/19 09/09/19 Unknown Rx Active Meds: Active Medications Acetaminophen (Tylenol) 650 mg PO Q4H PRN PRN Reason: Pain MILD(1-3)/Fever >100.5/MALONE Alprazolam (Xanax) 0.25 mg PO Q8H PRN PRN Reason: Anxiety Aspirin (Halfprin Ec) 81 mg PO DAILY [facility] Last Admin: 09/10/19 11:46 Dose: 81 mg Documented by: Atorvastatin Calcium (Lipitor) 40 mg PO QHS [facility] Last Admin: 09/09/19 21:30 Dose: 40 mg Documented by: Clopidogrel Bisulfate (Plavix) 75 mg PO QDAY [facility] Last Admin: 09/10/19 11:45 Dose: 75 mg Documented by: Hydralazine HCl (Apresoline) 5 mg IV Q6H PRN PRN Reason: Hypertension Ceftriaxone Sodium (Rocephin/Ns 1 Gm/50 Ml) 1 gm in 50 mls @ 100 mls/hr IV Q24HR [facility]; Protocol Last Admin: 09/10/19 15:53 Dose: 100 mls/hr Documented by: Azithromycin 500 mg/ Sodium (Chloride) 250 mls @ 250 mls/hr IV Q24HR [facility]; Protocol Last Admin: 09/10/19 14:17 Dose: 250 mls/hr Documented by: Lisinopril (Zestril) 20 mg PO QDAY [facility] Metoprolol Tartrate (Metoprolol) 50 mg PO BID [facility] Last Admin: 09/10/19 11:46 Dose: 50 mg Documented by: Ondansetron HCl (Zofran) 4 mg IV Q8H PRN PRN Reason: Nausea And Vomiting Sodium Chloride (Sodium Chloride Flush Syringe 10 Ml) 10 ml IV BID [facility] Last Admin: 09/10/19 11:50 Dose: Not Given Documented by: Sodium Chloride (Sodium Chloride Flush Syringe 10 Ml) 10 ml IV PRN PRN PRN Reason: LINE FLUSH Triamcinolone Acetonide (Kenalog) 1 applic TP TID PRN PRN Reason: Itching Physical Examination - Physical Exam Narrative exam: Physical Exam: Constitutional: Alert, cooperative. No acute distress Head, Ears, Nose: Normocephalic, atraumatic. External ears, nose normal Eyes: Conjunctivae/corneas clear. No icterus. No ptosis. Neck: Supple, no meningeal signs Oral: dentition fair, no thrush Cardiovascular: S1, S2 normal. Respiratory: Good air entry, clear to auscultation bilaterally GI: Soft, non-tender; bowel sounds normal. No peritoneal signs. Musculoskeletal: No pedal edema, no cyanosis. Skin: No rash or abscess Hem/Lymphatic: No palpable cervical or supraclavicular nodes. No lymphangitis Psych: Mood ok. Affect normal Neurological: Awake, alert, oriented. No gross abnormality - Constitutional Vitals: Vital Signs Temp Pulse Resp BP Pulse Ox 98.2 F 77 18 144/98 98 09/10/19 11:53 09/10/19 11:38 09/10/19 11:53 09/10/19 11:46 09/10/19 11:38 Temperature -Last 24 Hours Temperature 98.2 F Temperature 99.2 F Temperature 98.6 F Temperature 98.4 F Results - Labs CBC & Chem 7: 09/10/19 06:11 09/10/19 06:11 Labs: Abnormal lab results 09/10/19 Range/Units 06:11 RDW 12.7 L (13.2-15.2) % Seg Neuts % (Manual) 20.0 L (40.0-70.0) % Lymphocytes % (Manual) 71.0 H (13.4-35.0) % Monocytes % (Manual) 8.0 H (0.0-7.3) % Seg Neutrophils # Man 1.1 L (1.8-7.7) K/mm3 Assessment and Plan Cultures: Blood culture 09/09/2019 no growth to date A/P: 48-year-old male past medical history of CAD, vertigo admitted for COVID-19 rule out #COVID-19 rule out: PUI survey filled out already, follow-up results from [facility]. Continue contact and droplet precautions #Bilateral multi lobar pneumonia: Continue ceftriaxone and azithromycin for now. Order procalcitonin for morning labs Recs: -Continue contact and droplet precautions -Follow-up COVID-19 testing for infection of cough -Continue ceftriaxone azithromycin empirically for now -Ordered procalcitonin for morning labs. Thank you for the consult, will continue to follow Kiko Tran MD [facility] M: [phone] O: [phone] F: [phone]
--- NOTE | 2019-09-11 09:21 | Progress Note ---
Assessment and Plan Assessment and plan: --r/o Covid -19 COVID-19 documentation and test request sent to [facility]. In ED CTA chest; negative for PTE, multilobar bilateral patchy pneumonia Chest x-ray; no acute abnormality -- Bilateral pneumonia Current Visit: Yes Status: Acute Oxygen titrate O2 sats to more than 90%, empiric antibiotics Follow cultures, ID following -- CAD (coronary artery disease) Current Visit: Yes Status: Acute Continue statin therapy, dual antiplatelet therapy, risk factor reduction, smoking cessation, supportive care. --Nicotine dependence unspecified, with withdrawal Current Visit: No Status: Acute Smoking cessation counseling, supportive care, +15 minutes. --HTN (hypertension) Current Visit: No Status: Chronic Monitor blood pressure every shift, continues medical management, supportive care. --Coronavirus infection, unspecified Current Visit: Yes Status: Suspected Droplet precaution, isolation protocol, . Treat pneumonia, supportive care. ID evaluated the patient COVID-19 documentation and test request sent to [facility]. In ED --DVT prophylaxis Current Visit: No Status: Acute SCD to bilateral lower extremities while in bed, patient is ambulatory. --Advance care planning Current Visit: Yes Status: Acute Patient is full code, disease education conducted via telephone. Patient is critically ill poor prognosis Continue current management Plan of care reviewed with the patient and his Monitor closely and adjust management as needed I discussed in detail with the patient's condition, treatment plan Over the phone History Interval history: Patient seen and examined at the bedside this morning in the isolation room Patient's chart other medical records, tests and medication list reviewed Complains of mild shortness of breath and some cough and tiredness Patient is anxious to go home Alert awake oriented Vital signs reviewed Hospitalist Physical - Constitutional Vitals: Temp Pulse Resp BP Pulse Ox 98.2 F 78 16 138/99 100 09/11/19 04:31 09/11/19 04:31 09/11/19 04:31 09/11/19 04:31 09/11/19 04:31 General appearance: Present: mild distress, well-nourished, other (Anxious) - EENT Eyes: Present: PERRL, EOM intact - Neck Neck: Present: supple, normal ROM - Respiratory Respiratory effort: normal Respiratory: bilateral: diminished, rhonchi, negative: rales, wheezing - Cardiovascular Rhythm: regular Heart Sounds: Present: S1 & S2 - Extremities Extremities: no ischemia, No edema - Abdominal General gastrointestinal: soft, non-tender, non-distended, normal bowel sounds - Integumentary Integumentary: Present: clear, warm - Psychiatric Psychiatric: appropriate mood/affect, cooperative - Neurologic Neurologic: CNII-XII intact, moves all extremities DMITRY score - Dmitry Score Age > 65: (0) No Aspirin use within the Past 7 Days: (1) Yes 3 or more CAD Risk Factors: (1) Yes 2 or more Angina events in past 24 hrs: (1) Yes Known CAD with more than 50% Stenosis: (0) No Elevated Cardiac Markers: (0) No ST Deviation Greater than 0.5mm: (0) No DMITRY Score: 3 Results - Labs CBC & Chem 7: 09/10/19 06:11 09/10/19 06:11 Labs: Laboratory Last Values WBC 5.6 K/mm3 (4.5-11.0) 09/10/19 06:11 RBC 4.76 M/mm3 (3.65-5.03) 09/10/19 06:11 Hgb 15.1 gm/dl (11.8-15.2) 09/10/19 06:11 Hct 44.1 % (35.5-45.6) 09/10/19 06:11 MCV 93 fl (84-94) 09/10/19 06:11 MCH 32 pg (28-32) 09/10/19 06:11 MCHC 34 % (32-34) 09/10/19 06:11 RDW 12.7 % (13.2-15.2) L 09/10/19 06:11 Plt Count 201 K/mm3 (140-440) 09/10/19 06:11 Lymph % (Auto) Loss Prevention Specialist 09/10/19 06:11 Add Manual Diff Complete 09/10/19 06:11 Total Counted 100 09/10/19 06:11 Seg Neutrophils % Loss Prevention Specialist 09/10/19 06:11 Seg Neuts % (Manual) 20.0 % (40.0-70.0) L 09/10/19 06:11 Band Neutrophils % 0 % 09/10/19 06:11 Lymphocytes % (Manual) 71.0 % (13.4-35.0) H 09/10/19 06:11 Reactive Lymphs % (Man) 0 % 09/10/19 06:11 Monocytes % (Manual) 8.0 % (0.0-7.3) H 09/10/19 06:11 Eosinophils % (Manual) 1.0 % (0.0-4.3) 09/10/19 06:11 Basophils % (Manual) 0 % (0.0-1.8) 09/10/19 06:11 Metamyelocytes % 0 % 09/10/19 06:11 Myelocytes % 0 % 09/10/19 06:11 Promyelocytes % 0 % 09/10/19 06:11 Blast Cells % 0 % 09/10/19 06:11 Nucleated RBC % Not Reportable 09/10/19 06:11 Seg Neutrophils # Man 1.1 K/mm3 (1.8-7.7) L 09/10/19 06:11 Band Neutrophils # 0.0 K/mm3 09/10/19 06:11 Lymphocytes # (Manual) 4.0 K/mm3 (1.2-5.4) 09/10/19 06:11 Abs React Lymphs (Man) 0.0 K/mm3 09/10/19 06:11 Monocytes # (Manual) 0.4 K/mm3 (0.0-0.8) 09/10/19 06:11 Eosinophils # (Manual) 0.1 K/mm3 (0.0-0.4) 09/10/19 06:11 Basophils # (Manual) 0.0 K/mm3 (0.0-0.1) 09/10/19 06:11 Metamyelocytes # 0.0 K/mm3 09/10/19 06:11 Myelocytes # 0.0 K/mm3 09/10/19 06:11 Promyelocytes # 0.0 K/mm3 09/10/19 06:11 Blast Cells # 0.0 K/mm3 09/10/19 06:11 WBC Morphology Not Reportable 09/10/19 06:11 Hypersegmented Neuts Not Reportable 09/10/19 06:11 Hyposegmented Neuts Not Reportable 09/10/19 06:11 Hypogranular Neuts Not Reportable 09/10/19 06:11 Smudge Cells Not Reportable 09/10/19 06:11 Toxic Granulation Not Reportable 09/10/19 06:11 Toxic Vacuolation Not Reportable 09/10/19 06:11 Dohle Bodies Not Reportable 09/10/19 06:11 Pelger-Huet Anomaly Not Reportable 09/10/19 06:11 Jean Rods Not Reportable 09/10/19 06:11 Platelet Estimate Consistent w auto 09/10/19 06:11 Clumped Platelets Not Reportable 09/10/19 06:11 Plt Clumps, EDTA Not Reportable 09/10/19 06:11 Large Platelets Not Reportable 09/10/19 06:11 Giant Platelets Not Reportable 09/10/19 06:11 Platelet Satelliting Not Reportable 09/10/19 06:11 Plt Morphology Comment Not Reportable 09/10/19 06:11 RBC Morphology Normal 09/10/19 06:11 Dimorphic RBCs Not Reportable 09/10/19 06:11 Polychromasia Not Reportable 09/10/19 06:11 Hypochromasia Not Reportable 09/10/19 06:11 Poikilocytosis Not Reportable 09/10/19 06:11 Anisocytosis Not Reportable 09/10/19 06:11 Microcytosis Not Reportable 09/10/19 06:11 Macrocytosis Not Reportable 09/10/19 06:11 Spherocytes Not Reportable 09/10/19 06:11 Pappenheimer Bodies Not Reportable 09/10/19 06:11 Sickle Cells Not Reportable 09/10/19 06:11 Target Cells Not Reportable 09/10/19 06:11 Tear Drop Cells Not Reportable 09/10/19 06:11 Ovalocytes Not Reportable 09/10/19 06:11 Helmet Cells Not Reportable 09/10/19 06:11 [place] Bodies Not Reportable 09/10/19 06:11 [place] Rings Not Reportable 09/10/19 06:11 Trang Cells Not Reportable 09/10/19 06:11 Bite Cells Not Reportable 09/10/19 06:11 Crenated Cell Not Reportable 09/10/19 06:11 Elliptocytes Not Reportable 09/10/19 06:11 Acanthocytes (Spur) Not Reportable 09/10/19 06:11 Rouleaux Not Reportable 09/10/19 06:11 Hemoglobin C Crystals Not Reportable 09/10/19 06:11 Schistocytes Not Reportable 09/10/19 06:11 Malaria parasites Not Reportable 09/10/19 06:11 [place] Bodies Not Reportable 09/10/19 06:11 Hem Pathologist Commnt No 09/10/19 06:11 PT 12.6 Sec. (12.2-14.9) 09/09/19 12:52 INR 0.93 (0.87-1.13) 09/09/19 12:52 D-Dimer 438.38 ng/mlDDU (0-234) H 09/09/19 12:52 Sodium 142 mmol/L (137-145) 09/10/19 06:11 Potassium 4.2 mmol/L (3.6-5.0) 09/10/19 06:11 Chloride 102.7 mmol/L (98-107) 09/10/19 06:11 Carbon Dioxide 22 mmol/L (22-30) 09/10/19 06:11 Anion Gap 22 mmol/L 09/10/19 06:11 BUN 11 mg/dL (9-20) 09/10/19 06:11 Creatinine 1.0 mg/dL (0.8-1.5) 09/10/19 06:11 Estimated GFR > 60 ml/min 09/10/19 06:11 BUN/Creatinine Ratio 11 % 09/10/19 06:11 Glucose 83 mg/dL (75-100) 09/10/19 06:11 Calcium 9.3 mg/dL (8.4-10.2) 09/10/19 06:11 Total Bilirubin 0.80 mg/dL (0.1-1.2) 09/10/19 06:11 AST 31 units/L (5-40) 09/10/19 06:11 ALT 29 units/L (7-56) 09/10/19 06:11 Alkaline Phosphatase 64 units/L (35-129) 09/10/19 06:11 Troponin T < 0.010 ng/mL (0.00-0.029) 09/09/19 19:50 Total Protein 7.2 g/dL (6.3-8.2) 09/10/19 06:11 Albumin 4.3 g/dL (3.9-5) 09/10/19 06:11 Albumin/Globulin Ratio 1.5 % 09/10/19 06:11 Influenza A (Rapid) Negative (Negative) 09/09/19 Unknown Influenza B (Rapid) Negative (Negative) 09/09/19 Unknown Microbiology: Microbiology 09/09/19 16:42 Peripheral/Venous Blood Culture - Preliminary NO GROWTH AFTER 24 HOURS 09/09/19 16:42 Peripheral/Venous Blood Culture - Preliminary NO GROWTH AFTER 24 HOURS Joseph/IV: Voiding Method Toilet IV Catheter Type [Left INT / Saline Lock Antecubital] Active Medications - Current Medications Current Medications: Generic Name Dose Route Start Last Admin Trade Name Freq PRN Reason Stop Dose Admin Acetaminophen 650 mg 09/09/19 16:59 Tylenol PO Q4H PRN Pain MILD(1-3)/Fever >100.5/MALONE Alprazolam 0.25 mg 09/10/19 20:00 Xanax PO Q8H PRN Anxiety Aspirin 81 mg 09/10/19 10:00 09/10/19 11:46 Halfprin Ec PO 81 mg DAILY KEVIN Administration Atorvastatin Calcium 40 mg 09/11/19 10:00 Lipitor PO DAILY KEVIN Clopidogrel Bisulfate 75 mg 09/10/19 10:00 09/10/19 11:45 Plavix PO 75 mg QDAY KEVIN Administration Hydralazine HCl 5 mg 09/10/19 00:21 Apresoline IV Q6H PRN Hypertension Ceftriaxone Sodium 1 gm in 50 mls @ 100 mls/hr 09/10/19 13:00 09/10/19 21:58 Rocephin/Ns 1 Gm/50 Ml IV Infused Q24HR [facility] Infusion Protocol Azithromycin 500 mg/ Sodium 250 mls @ 250 mls/hr 09/10/19 14:00 09/10/19 21:58 Chloride IV Infused Q24HR [facility] Infusion Protocol Lisinopril 20 mg 09/10/19 10:00 09/10/19 17:13 Zestril PO 20 mg QDAY KEVIN Administration Metoprolol Tartrate 50 mg 09/09/19 22:00 09/10/19 22:00 Metoprolol PO Not Given BID KEVIN Ondansetron HCl 4 mg 09/09/19 16:59 Zofran IV Q8H PRN Nausea And Vomiting Sodium Chloride 10 ml 09/09/19 22:00 09/10/19 21:52 Sodium Chloride Flush Syringe 10 Ml IV 10 ml BID KEVIN Administration Sodium Chloride 10 ml 09/09/19 16:59 Sodium Chloride Flush Syringe 10 Ml IV PRN PRN LINE FLUSH Triamcinolone Acetonide 1 applic 09/09/19 17:19 Kenalog TP TID PRN Itching
[2019-09-11] MEDS: METOPROLOL TARTRATE 50 MG TAB PO SCH ×2 (12:07→18:38)
[2019-09-11] MEDS: ASPIRIN EC 81 MG TAB PO SCH (12:07)
[2019-09-11] MEDS: LISINOPRIL 20 MG TAB PO SCH ×2 (12:07→16:34)
[2019-09-11] MEDS: ALPRAZolam 0.25 MG TAB PO PRN (12:07)
[2019-09-11] MEDS: CLOPIDOGREL 75 MG TAB PO SCH (12:07)
[2019-09-11] MEDS: cefTRIAXone/NS 1 GM/50 ML 1 GM/50 ML BAG IV SCH (12:08)
[2019-09-11] MEDS: AZITHROMYCIN 500 MG in SODIUM CHLORIDE 0.9% 250ML 250 ML IV SCH (12:08)
[2019-09-11] MEDS ORDERED: LISINOPRIL 20 MG TAB PO SCH (19:00)
--- NOTE | 2019-09-11 23:11 | XRay Report ---
CHEST 1 VIEW 09/11/2019 10:34 PM INDICATION / CLINICAL INFORMATION: f/u pneumonia. COMPARISON: 09/09/19 FINDINGS: SUPPORT DEVICES: None. HEART / MEDIASTINUM: No significant abnormality. LUNGS / PLEURA: Subtle bilateral patchy parenchymal densities are unchanged. No pneumothorax. ADDITIONAL FINDINGS: No significant additional findings. IMPRESSION: 1. No change. Signer Name: Bernardo Toledo MD Signed: 09/11/2019 11:06 PM Workstation Name: [id number]
[2019-09-12] MEDS: METOPROLOL TARTRATE 50 MG TAB PO SCH (06:04)
[2019-09-12] MEDS ORDERED: CLOPIDOGREL 75 MG TAB PO SCH (07:00)
[2019-09-12] MEDS ORDERED: ASPIRIN EC 81 MG TAB PO SCH (07:00)
[2019-09-12] MEDS ORDERED: AZITHROMYCIN 250 MG TAB PO SCH ×2 (07:00→10:00)
[2019-09-12] MEDS: ALPRAZolam 0.25 MG TAB PO PRN (10:35)
[2019-09-12] MEDS: cefTRIAXone/NS 1 GM/50 ML 1 GM/50 ML BAG IV SCH (10:35)
--- NOTE | 2019-09-12 14:32 | Progress Note ---
Assessment and Plan Cultures: Blood culture 09/09/2019 no growth to date A/P: 48-year-old male past medical history of CAD, vertigo admitted for COVID-19 rule out #COVID-19 rule out: PUI survey filled out already, follow-up results from [facility]. Continue contact and droplet precautions #Bilateral multi lobar pneumonia: Continue ceftriaxone and azithromycin for now. Order procalcitonin for morning labs Recs: -Continue contact and droplet precautions -Follow-up COVID-19 testing from [facility] -Continue ceftriaxone azithromycin empirically for now. Ok to DC on levofloxacin 500mg q24h to complete 5 total days antibiotic. Stop date: 09/14/2019 - Patient may be discharged when medically stable if testing swabs have been obtained. Upon discharge patient should self-quarantine at home until COVID testing returns. If negative, self-quarantine may end. If positive patient should self-quarantine for 14 days from symptom beginning. Public health and infection prevention will follow up with patients to notify them of their test results. Patients should return to hospital regardless if they have worsening fevers or respiratory status. Thank you for the consult, will sign off. Please call with questions. Kiko Tran MD [facility] ([facility]) M: [phone] O: [phone] F: [phone] Subjective Date of service: 09/12/19 Interval history: Afebrile, normal white count. Feels fairly well. No acute issues. Objective - Exam Narrative Exam: Physical Exam: Constitutional: Alert, cooperative. No acute distress Head, Ears, Nose: Normocephalic, atraumatic. External ears, nose normal Neck: Supple, no meningeal signs Oral: dentition fair, no thrush Cardiovascular: S1, S2 normal. Respiratory: Good air entry, clear to auscultation bilaterally GI: Soft, non-tender; bowel sounds normal. No peritoneal signs. Musculoskeletal: No pedal edema, no cyanosis. Skin: No rash or abscess Hem/Lymphatic: No palpable cervical or supraclavicular nodes. No lymphangitis Psych: Mood ok. Affect normal Neurological: Awake, alert, oriented. No gross abnormality - Constitutional Vitals: Vital Signs Temp Pulse Resp BP Pulse Ox 98.5 F 72 20 143/102 98 09/12/19 06:34 09/12/19 06:34 09/12/19 06:34 09/12/19 06:34 09/12/19 06:34 Temperature -Last 24 Hours Temperature 98.5 F Temperature 98.2 F Temperature 97.3 F - Labs CBC & Chem 7: 09/10/19 06:11 09/10/19 06:11
--- NOTE | 2019-09-12 14:42 | Discharge Summary ---
Providers - Providers Date of Admission: 09/09/19 16:59 Date of discharge: 09/12/19 Attending physician: HEBER BRO 09/10/19 11:03 Consult to Physician [CONS] Routine Comment: Consulting Provider: ALON JENKINS Physician Instructions: Reason For Exam: Bilateral pneumonia/r/o Covid-19 Primary care physician: DRAW END HAND Hospitalization Condition: Stable Hospital course: --r/o Covid -19 COVID-19 documentation and test request sent to [facility] department. In ED CTA chest; negative for PTE, multilobar bilateral patchy pneumonia Chest x-ray; no acute abnormality -- Bilateral pneumonia Current Visit: Yes Status: Acute Oxygen titrate O2 sats to more than 90%, empiric antibiotics Follow cultures, ID following -- CAD (coronary artery disease) Current Visit: Yes Status: Acute Continue statin therapy, dual antiplatelet therapy, risk factor reduction, smoking cessation, supportive care. --Nicotine dependence unspecified, with withdrawal Current Visit: No Status: Acute Smoking cessation counseling, supportive care, +15 minutes. --HTN (hypertension) Current Visit: No Status: Chronic Monitor blood pressure every shift, continues medical management, supportive care. --Coronavirus infection, unspecified Current Visit: Yes Status: Suspected Droplet precaution, isolation protocol, . Treat pneumonia, supportive care. ID evaluated the patient COVID-19 documentation and test request sent to [facility] department. In ED --DVT prophylaxis Current Visit: No Status: Acute SCD to bilateral lower extremities while in bed, patient is ambulatory. --Advance care planning Current Visit: Yes Status: Acute Patient is full code, disease education conducted via telephone. Patient is critically ill poor prognosis Continue current management Plan of care reviewed with the patient and his Monitor closely and adjust management as needed I discussed in detail with the patient's condition, treatment plan Over the phone Disposition: DC-01 TO HOME OR SELFCARE Time spent for discharge: 32min Core Measure Documentation - Palliative Care Palliative Care/ Comfort Measures: Not Applicable - Core Measures Any of the following diagnoses?: none Exam - Constitutional Vitals: Temp Pulse Resp BP Pulse Ox 98.5 F 72 20 143/102 98 09/12/19 06:34 09/12/19 06:34 09/12/19 06:34 09/12/19 06:34 09/12/19 06:34 General appearance: Present: no acute distress, well-nourished - EENT Eyes: Present: PERRL, EOM intact - Neck Neck: Present: supple, normal ROM - Respiratory Respiratory effort: normal Respiratory: bilateral: diminished, negative: rales, rhonchi, wheezing - Cardiovascular Rhythm: regular Heart Sounds: Present: S1 & S2 - Extremities Extremities: no ischemia, No edema - Abdominal General gastrointestinal: Present: soft, non-tender, non-distended, normal bowel sounds - Integumentary Integumentary: Present: clear, warm - Musculoskeletal Musculoskeletal: strength equal bilaterally, generalized weakness - Psychiatric Psychiatric: appropriate mood/affect, cooperative - Neurologic Neurologic: CNII-XII intact, moves all extremities Plan Activity: no restrictions (Isolation self quarantine[till your test comes back negative]), other (Contact, droplet precautions) Diet: other (cardiac diet) Additional Instructions: Upon discharge patient should self-quarantine at home until COVID testing returns. If testing is negative, self-quarantine may end. If test is positive patient should self-quarantine for 14 days from symptom beginning. Public health and infection prevention will follow up with patients to notify them of their test results. Patients should return to hospital regardless if they have worsening fevers or respiratory status. Advise droplet precautions[mask] contact precautions[handwashing,] Follow up with: PRIMARY CARE, [Primary Care Provider] - 3-5 Days Prescriptions: levoFLOXacin [Levaquin] 750 mg PO QDAY #4 tablet Benzonatate [Tessalon Perles] 100 mg PO Q8HR PRN #20 capsule PRN Reason: Cough ALPRAZolam [Xanax TAB] 0.25 mg PO BID PRN #6 tab PRN Reason: Anxiety
[2019-09-12 14:51] VITALS: BP 132/84
== END 2019-09-12 15:55 | disposition home or self-care (01) | DRG 194 ==
LOC: ED 11:15 → 3A 16:59
PROVIDERS: ADMIT Internal Medicine; ATTEND Internal Medicine
DX: J18.9 Pneumonia, unspecified organism (principal); F17.213 Nicotine dependence, cigarettes, with withdrawal; I10 Essential (primary) hypertension; Z20.828 Contact with and (suspected) exposure to other viral communicable diseases; I25.2 Old myocardial infarction; Z95.5 Presence of coronary angioplasty implant and graft; Z79.82 Long term (current) use of aspirin; Z79.899 Other long term (current) drug therapy; Z82.49 Family history of ischemic heart disease and other diseases of the circulatory system
CPT/HCPCS: 36415; 71045; 71046; 71275; 80048; 80053; 84145; 84484; 85007; 85025; 85379; 85610; 87040; 87116; 87400; 93005; 93010; G0378; A9270-GY; J0456; J0696; J7050; Q9967

== ENCOUNTER 2020-09-17 12:53 | Emergency (ER) | payer SELFPAY ==
[2020-09-17 13:29] VITALS: BP 177/105
--- NOTE | 2020-09-17 14:28 | Event Note ---
ED Screening Note Date of service: 09/17/20 Time: 14:26 ED Screening Note: Patient complains of upper back pain. Onset yesterday. He denies any injury. 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 Patient states that he came to get checked out because he had a massive heart attack in 2019 ended up having 1 stent. He states that his symptoms included back pain and diaphoresis and so when his back pain started yesterday he decided come in to get checked out today. He denies any associated chest pain, shortness of breath, diaphoresis, nausea or vomiting since yesterday. Past medical history includes hypertension. He states that he did take his blood pressure medication this morning. This initial assessment/diagnostic orders/clinical plan/treatment(s) is/are subject to change based on patients health status, clinical progression and re- assessment by fellow clinical providers in the ED. Further treatment and workup at subsequent clinical providers discretion. Patient/guardian urged not to elope from the ED as their condition may be serious if not clinically assessed and managed. Initial orders include: CBC, CMP, EKG, troponin and chest x-ray
--- NOTE | 2020-09-17 14:37 | Emergency Department Report ---
ED Chest Pain HPI - General Chief Complaint: Back Pain/Injury Stated Complaint: CHEST PAIN/BACK PAIN PUI?: No Time Seen by Provider: 09/17/20 14:34 Source: patient Mode of arrival: Ambulatory Limitations: No Limitations - History of Present Illness Initial Comments: 49 yo AA male comes to ER with chest pain; he does have cardiac history. He wanted to make sure it was not his heart causing the pain. Endorses stress. His Significant Other has checked in as well. MD Complaint: chest pain -: Gradual, days(s) Severity scale (0 -10): 6 Improves With: nothing Worsens With: nothing Aspirin use within the Past 7 Days: (1) Yes - Related Data On Oral Contraceptives: No Previous Rx's Medication Instructions Recorded Last Taken Type Aspirin [Aspirin EC] 81 mg PO DAILY #30 tablet. 10/06/18 09/09/19 Rx AtorvaSTATin [Lipitor] 40 mg PO QHS #30 tablet 10/06/18 09/08/19 Rx lisinopriL [Zestril TAB] 20 mg PO QDAY #30 tablet 10/06/18 09/08/19 Rx Clopidogrel [Plavix] 75 mg PO QDAY #30 tablet 03/07/19 09/08/19 Rx Metoprolol [Lopressor TAB] 50 mg PO BID #60 tablet 03/07/19 09/09/19 Rx Allergies Allergy/AdvReac Type Severity Reaction Status Date / Time No Known Allergies Allergy Verified 11/12/13 06:54 Heart Score - HEART Score History: Slightly suspicious EKG: Normal Age: < 45 Risk factors: 1-2 risk factors Troponin: < normal limit HEART Score: 1 - EKG Read Time Time EKG Completed: 13:20 EKG Read Time: 13:20 ED Review of Systems ROS: Stated complaint: CHEST PAIN/BACK PAIN Other details as noted in HPI Comment: All other systems reviewed and negative ED Past Medical Hx - Past Medical History Hx Hypertension: Yes Hx Heart Attack/AMI: Yes Hx Congestive Heart Failure: No Hx Diabetes: No Hx Asthma: No Hx COPD: No Hx HIV: No - Surgical History Hx Coronary Stent: Yes (1 stent 10/04/2018) - Family History Family history: vascular disease - Social History Smoking Status: Former Smoker Substance Use Type: Alcohol - Medications Home Medications: Home Medications Medication Instructions Recorded Confirmed Last Taken Type Aspirin [Aspirin EC] 81 mg PO DAILY #30 tablet.dr 10/06/18 09/09/19 09/09/19 Rx AtorvaSTATin [Lipitor] 40 mg PO QHS #30 tablet 10/06/18 09/09/19 09/08/19 Rx lisinopriL [Zestril TAB] 20 mg PO QDAY #30 tablet 10/06/18 09/09/19 09/08/19 Rx Clopidogrel [Plavix] 75 mg PO QDAY #30 tablet 03/07/19 09/09/19 09/08/19 Rx Metoprolol [Lopressor TAB] 50 mg PO BID #60 tablet 03/07/19 09/09/19 09/09/19 Rx ED Physical Exam - General Limitations: No Limitations General appearance: alert, in no apparent distress - Head Head exam: Present: atraumatic, normocephalic - Eye Eye exam: Present: normal appearance - ENT ENT exam: Present: mucous membranes moist - Neck Neck exam: Present: normal inspection - Respiratory Respiratory exam: Present: normal lung sounds bilaterally. Absent: respiratory distress - Cardiovascular Cardiovascular Exam: Present: regular rate, normal rhythm. Absent: systolic murmur, diastolic murmur, rubs, gallop - GI/Abdominal GI/Abdominal exam: Present: soft, normal bowel sounds - Rectal Rectal exam: Present: deferred - Extremities Exam Extremities exam: Present: normal inspection - Back Exam Back exam: Present: normal inspection - Neurological Exam Neurological exam: Present: alert, oriented X3 - Psychiatric Psychiatric exam: Present: normal affect, normal mood - Skin Skin exam: Present: warm, dry, intact, normal color. Absent: rash ED Course Vital Signs 09/17/20 09/17/20 13:27 15:06 Temperature 97.8 F Pulse Rate 68 Respiratory 17 22 Rate Blood Pressure 177/105 [Right] O2 Sat by Pulse 100 Oximetry EMILY score - Emily Score Age > 65: (0) No Aspirin use within the Past 7 Days: (1) Yes 3 or more CAD Risk Factors: (1) Yes 2 or more Angina events in past 24 hrs: (1) Yes Known CAD with more than 50% Stenosis: (0) No Elevated Cardiac Markers: (0) No ST Deviation Greater than 0.5mm: (0) No EMILY Score: 3 ED Medical Decision Making - Lab Data Result diagrams: 09/17/20 14:49 09/17/20 14:49 - EKG Data EKG shows normal: sinus rhythm Rate: normal - EKG Data When compared to previous EKG there are: no significant change Interpretation: no acute changes - Radiology Data Radiology results: report reviewed, image reviewed - Medical Decision Making Labs 09/17/20 09/17/20 14:49 14:49 WBC 6.2 RBC 4.87 Hgb 15.8 H Hct 46.2 H MCV 95 H MCH 32 MCHC 34 RDW 13.1 L Plt Count 221 Lymph % (Auto) 45.5 H [place] % (Auto) 13.5 H Eos % (Auto) 0.3 Baso % (Auto) 0.4 Lymph # (Auto) 2.8 [place] # (Auto) 0.8 Eos # (Auto) 0.0 Baso # (Auto) 0.0 Seg Neutrophils % 40.3 Seg Neutrophils # 2.5 Sodium 141 Potassium 4.0 Chloride 104.9 Carbon Dioxide 28 Anion Gap 12 BUN 9 Creatinine 0.9 Estimated GFR > 60 BUN/Creatinine Ratio 10 Glucose 86 Calcium 9.4 Total Bilirubin 1.30 H AST 27 ALT 33 Alkaline Phosphatase 66 Troponin T < 0.010 Total Protein 7.5 Albumin 4.9 Albumin/Globulin Ratio 1.9 Vital Signs 09/17/20 09/17/20 13:27 15:06 Temperature 97.8 F Pulse Rate 68 Respiratory 17 22 Rate Blood Pressure 177/105 [Right] O2 Sat by Pulse 100 Oximetry 1545 pt not in room for dispo. Per staff he left due to an impending eviction at his home. - Differential Diagnosis ro acs Critical care attestation.: If time is entered above; I have spent that time in minutes in the direct care of this critically ill patient, excluding procedure time. ED Disposition Clinical Impression: HTN (hypertension), Tobacco use, Alcohol use, Medical non-compliance, Elevated bilirubin Disposition: Z-07 ELOPED Is pt being admited?: No Does the pt Need Aspirin: No Condition: Stable Instructions: Hypertension (ED) Additional Instructions: CONTINUE HOME MEDS FOLLOW UP WITH PCP REFERRAL BELOW Referrals: AN ROBLES MD [Staff Physician] - 3-5 Days Time of Disposition: 15:33
[2020-09-17] MEDS ORDERED: IBUPROFEN 800 MG TAB PO ONE (15:03)
--- NOTE | 2020-09-17 15:11 | XRay Report ---
CHEST 1 VIEW 09/17/2020 2:39 PM INDICATION / CLINICAL INFORMATION: Upper back pain, history of myocardial infarction. COMPARISON: Chest one view dated 09/11/2019. FINDINGS: SUPPORT DEVICES: None. HEART / MEDIASTINUM: No significant abnormality. LUNGS / PLEURA: Clear lungs. No significant pleural effusion. No pneumothorax. ADDITIONAL FINDINGS: No significant additional findings. IMPRESSION: 1. No acute abnormality of the chest. Signer Name: Ceasar Purcell MD Signed: 09/17/2020 3:06 PM Workstation Name: [id number]
[2020-09-17 15:15] LABS: Basophils % (Auto) 0.4 % (0.0-1.8); Eosinophils % (Auto) 0.3 % (0.0-4.3); Hematocrit 46.2 % (35.5-45.6); Hemoglobin 15.8 gm/dl (11.8-15.2); Lymphocytes # (Auto) 2.8 K/mm3 (1.2-5.4); Lymphocytes % (Auto) 45.5 % (13.4-35.0); Mean Corpuscular HGB Conc 34 % (32-34); Mean Corpuscular Volume 95 fl (84-94); Monocytes # (Auto) 0.8 K/mm3 (0.0-0.8); Monocytes % (Auto) 13.5 % (0.0-7.3); Platelet Count 221 K/mm3 (140-440); Red Blood Count 4.87 M/mm3 (3.65-5.03); Red Cell Distribution Width 13.1 % (13.2-15.2)
[2020-09-17 15:29] LABS: Alanine Aminotransferase 33 units/L (7-56); Albumin 4.9 g/dL (3.9-5); BUN/Creatinine Ratio 10; Blood Urea Nitrogen 9 mg/dL (9-20); Calcium 9.4 mg/dL (8.4-10.2); Hemolysis Index 10
--- NOTE | 2020-09-18 14:41 | Electrocardiograph Report ---
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
== END 2020-09-17 15:30 | disposition left against medical advice (07) ==
LOC: ED 12:53
DX: I10 Essential (primary) hypertension (principal); Z72.89 Other problems related to lifestyle; F11.90 Opioid use, unspecified, uncomplicated; Z91.14 Patient's other noncompliance with medication regimen; I25.2 Old myocardial infarction; Z79.899 Other long term (current) drug therapy
CPT/HCPCS: 36415; 71045; 80053; 84484; 85025; 93005; 99283

== ENCOUNTER 2020-10-20 11:47 | Emergency (ER) | payer SELFPAY ==
--- NOTE | 2020-10-20 12:05 | Event Note ---
ED Screening Note Date of service: 10/20/20 Time: 12:04 ED Screening Note: Patient complains of chest pain ongoing since yesterday History of VA with stent placement + Nausea and diarrhea This initial assessment/diagnostic orders/clinical plan/treatment(s) is/are subject to change based on patients health status, clinical progression and re- assessment by fellow clinical providers in the ED. Further treatment and workup at subsequent clinical providers discretion. Patient/guardian urged not to elope from the ED as their condition may be serious if not clinically assessed and managed. Initial orders include: Labs EKG Chest x-ray
[2020-10-20 12:41] LABS: Basophils % (Auto) 0.7 % (0.0-1.8); Eosinophils % (Auto) 0.6 % (0.0-4.3); Hematocrit 43.4 % (35.5-45.6); Hemoglobin 14.9 gm/dl (11.8-15.2); Lymphocytes # (Auto) 2.7 K/mm3 (1.2-5.4); Lymphocytes % (Auto) 50.5 % (13.4-35.0); Mean Corpuscular HGB Conc 34 % (32-34); Mean Corpuscular Volume 95 fl (84-94); Monocytes # (Auto) 0.7 K/mm3 (0.0-0.8); Monocytes % (Auto) 12.5 % (0.0-7.3); Platelet Count 219 K/mm3 (140-440); Red Blood Count 4.56 M/mm3 (3.65-5.03); Red Cell Distribution Width 13.1 % (13.2-15.2)
--- NOTE | 2020-10-20 13:11 | XRay Report ---
CHEST 2 VIEWS INDICATION / CLINICAL INFORMATION: chest pain. COMPARISON: 09/17/20 FINDINGS: SUPPORT DEVICES: None. HEART / MEDIASTINUM: No significant abnormality. LUNGS / PLEURA: No significant pulmonary or pleural abnormality. No pneumothorax. ADDITIONAL FINDINGS: No significant additional findings. IMPRESSION: 1. No acute findings. No change. Signer Name: Bernardo Toledo MD Signed: 10/20/2020 1:06 PM Workstation Name: [id number]
[2020-10-20 14:48] LABS: Alanine Aminotransferase 34 units/L (7-56); Albumin 4.4 g/dL (3.9-5); BUN/Creatinine Ratio 11; Blood Urea Nitrogen 10 mg/dL (9-20); Calcium 8.6 mg/dL (8.4-10.2); Hemolysis Index 3
--- NOTE | 2020-10-20 18:17 | Emergency Department Report ---
ED Abdominal Pain HPI - General Chief Complaint: Chest Pain Stated Complaint: CHEST PAIN Time Seen by Provider: 10/20/20 18:06 Source: patient Mode of arrival: Ambulatory Limitations: No Limitations - History of Present Illness Initial Comments: Patient is 49 years old male with history of hypertension and coronary artery disease status post stent and also history of cardiomyopathy. Patient presented to the ER complaining of epigastric pain. Patient describes his pain as burning sensation increased with food. Patient stated that his pain completely resolved now. Patient stated that he has been this pain for a while but for the last few days getting worse. Patient denied any shortness of breath. No fever chills or cough. Patient also stated that he has been having diarrhea for few days. MD Complaint: abdominal pain -: days(s) Location: epigastric Radiation: none Migration to: no migration Severity: moderate Severity scale (0 -10): 4 Quality: burning Consistency: intermittent, now resolved Worsens With: eating - Related Data Previous Rx's Medication Instructions Recorded Last Taken Type Aspirin [Aspirin EC] 81 mg PO DAILY #30 tablet. 10/06/18 09/09/19 Rx AtorvaSTATin [Lipitor] 40 mg PO QHS #30 tablet 10/06/18 09/08/19 Rx lisinopriL [Zestril TAB] 20 mg PO QDAY #30 tablet 10/06/18 09/08/19 Rx Clopidogrel [Plavix] 75 mg PO QDAY #30 tablet 03/07/19 09/08/19 Rx Metoprolol [Lopressor TAB] 50 mg PO BID #60 tablet 03/07/19 09/09/19 Rx Allergies Allergy/AdvReac Type Severity Reaction Status Date / Time No Known Allergies Allergy Verified 10/20/20 11:57 ED Review of Systems ROS: Stated complaint: CHEST PAIN Other details as noted in HPI Comment: All other systems reviewed and negative Constitutional: denies: chills, fever Respiratory: denies: cough, shortness of breath, SOB with exertion Cardiovascular: denies: chest pain, palpitations Gastrointestinal: abdominal pain, diarrhea. denies: nausea, constipation, hem atemesis, melena, hematochezia Musculoskeletal: denies: back pain Neurological: denies: headache, weakness, numbness, paresthesias, confusion ED Past Medical Hx - Past Medical History Hx Hypertension: Yes Hx Heart Attack/AMI: Yes Hx Congestive Heart Failure: No Hx Diabetes: No Hx Asthma: No Hx COPD: No Hx HIV: No - Surgical History Hx Coronary Stent: Yes (1 stent 10/04/2018) - Social History Smoking Status: Never Smoker Substance Use Type: None - Medications Home Medications: Home Medications Medication Instructions Recorded Confirmed Last Taken Type Aspirin [Aspirin EC] 81 mg PO DAILY #30 tablet. 10/06/18 09/09/19 09/09/19 Rx AtorvaSTATin [Lipitor] 40 mg PO QHS #30 tablet 10/06/18 09/09/19 09/08/19 Rx lisinopriL [Zestril TAB] 20 mg PO QDAY #30 tablet 10/06/18 09/09/19 09/08/19 Rx Clopidogrel [Plavix] 75 mg PO QDAY #30 tablet 03/07/19 09/09/19 09/08/19 Rx Metoprolol [Lopressor TAB] 50 mg PO BID #60 tablet 03/07/19 09/09/19 09/09/19 Rx ED Physical Exam - General Limitations: No Limitations General appearance: alert, in no apparent distress - Head Head exam: Present: atraumatic, normocephalic, normal inspection - Eye Eye exam: Present: normal appearance, PERRL - ENT ENT exam: Present: normal exam, normal orophraynx, mucous membranes moist - Neck Neck exam: Present: normal inspection, full ROM. Absent: tenderness, meningismus - Respiratory Respiratory exam: Present: normal lung sounds bilaterally - Cardiovascular Cardiovascular Exam: Present: regular rate, normal rhythm, normal heart sounds - GI/Abdominal GI/Abdominal exam: Present: soft, normal bowel sounds. Absent: distended, tenderness, guarding, rebound, rigid, organomegaly, mass, bruit, pulsatile mass, hernia - Extremities Exam Extremities exam: Present: normal inspection, full ROM, normal capillary refill. Absent: tenderness, pedal edema, calf tenderness - Back Exam Back exam: Present: normal inspection, full ROM. Absent: CVA tenderness (R), CVA tenderness (L) - Neurological Exam Neurological exam: Present: alert, oriented X3, CN II-XII intact, normal gait, reflexes normal. Absent: motor sensory deficit - Psychiatric Psychiatric exam: Present: normal mood - Skin Skin exam: Present: warm, intact, normal color ED Course Vital Signs 10/20/20 11:55 Temperature 98.3 F Pulse Rate 61 Respiratory 20 Rate Blood Pressure 173/111 O2 Sat by Pulse 100 Oximetry ED Medical Decision Making - Lab Data Result diagrams: 10/20/20 12:17 10/20/20 12:17 - EKG Data -: EKG Interpreted by Me EKG shows normal: sinus rhythm Rate: normal - EKG Data Interpretation: no acute changes - Radiology Data Radiology results: report reviewed - Medical Decision Making Patient is 49 years old male with history of hypertension and coronary artery disease status post stent and also history of cardiomyopathy. Patient presented to the ER complaining of epigastric pain. Patient describes his pain as burning sensation increased with food. Patient stated that his pain completely resolved now. Patient stated that he has been this pain for a while but for the last few days getting worse. Patient denied any shortness of breath. No fever chills or cough. Patient also stated that he has been having diarrhea for few days. EKG is unremarkable. Labs reviewed and is unremarkable including a negative troponin x2. Chest x-ray is negative for acute finding. Patient chest pain is atypical and consistent with gastritis versus gastroesophageal's disease. No clinical or laboratory evidence of acute cardiac ischemia now however patient strongly advised to follow-up with his primary care physician in the next 2 to 3 days for further management and advised to return to the ER if he develop any new symptoms. Critical care attestation.: If time is entered above; I have spent that time in minutes in the direct care of this critically ill patient, excluding procedure time. ED Disposition Clinical Impression: Epigastric abdominal pain, Gastroesophageal reflux disease Disposition: - TO HOME OR SELFCARE Is pt being admited?: No Condition: Stable Instructions: Food Choices for Gastroesophageal Reflux Disease, Adult, Abdominal Pain, Adult Referrals: LOIS RAY MD [Primary Care Provider] - 3-5 Days
[2020-10-20 19:16] VITALS: BP 152/87
--- NOTE | 2020-10-22 17:23 | Electrocardiograph Report ---
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
--- NOTE | 2020-10-22 17:24 | Electrocardiograph Report ---
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
== END 2020-10-20 19:14 | disposition home or self-care (01) ==
LOC: ED 11:47
DX: K21.9 Gastro-esophageal reflux disease without esophagitis (principal); I10 Essential (primary) hypertension; I25.2 Old myocardial infarction; Z79.82 Long term (current) use of aspirin; Z79.899 Other long term (current) drug therapy
CPT/HCPCS: 36415; 71046; 80053; 84484; 85025; 93005; 99283

== ENCOUNTER 2020-11-27 05:31 | Inpatient (IN) | payer OTHER ==
[2020-11-27] MEDS ORDERED: ASPIRIN 325 MG TAB PO ONE (05:57)
[2020-11-27 06:18] LABS: Basophils % (Auto) 0.3 % (0.0-1.8); Eosinophils # (Auto) 0.1 K/mm3 (0.0-0.4); Eosinophils % (Auto) 1.1 % (0.0-4.3); Hematocrit 42.1 % (35.5-45.6); Hemoglobin 14.4 gm/dl (11.8-15.2); Lymphocytes # (Auto) 2.8 K/mm3 (1.2-5.4); Lymphocytes % (Auto) 45.9 % (13.4-35.0); Mean Corpuscular HGB Conc 34 % (32-34); Mean Corpuscular Volume 93 fl (84-94); Monocytes # (Auto) 0.8 K/mm3 (0.0-0.8); Monocytes % (Auto) 13.2 % (0.0-7.3); Platelet Count 233 K/mm3 (140-440); Red Blood Count 4.52 M/mm3 (3.65-5.03); Red Cell Distribution Width 12.7 % (13.2-15.2)
--- NOTE | 2020-11-27 06:25 | XRay Report ---
CHEST 2 VIEWS INDICATION / CLINICAL INFORMATION: chestpain. COMPARISON: 10/20/2020 FINDINGS: SUPPORT DEVICES: None. HEART / MEDIASTINUM: No significant abnormality. LUNGS / PLEURA: No significant pulmonary or pleural abnormality. No pneumothorax. ADDITIONAL FINDINGS: No significant additional findings. IMPRESSION: 1. No acute findings. No interval change. Signer Name: Eneida Fontenot MD Signed: 11/27/2020 6:20 AM Workstation Name: [id number]
[2020-11-27 06:41] LABS: Alanine Aminotransferase 60 units/L (7-56); Albumin 4.5 g/dL (3.9-5); BUN/Creatinine Ratio 11; Blood Urea Nitrogen 10 mg/dL (9-20); Calcium 9.3 mg/dL (8.4-10.2); Hemolysis Index 23
--- NOTE | 2020-11-27 09:49 | Emergency Department Report ---
ED Chest Pain HPI - General Chief Complaint: Chest Pain Stated Complaint: FEELING OF HEART ATTACK/BACK PAIN PUI?: No Time Seen by Provider: 11/27/20 09:37 Source: patient, RN notes reviewed, old records reviewed Mode of arrival: Ambulatory Limitations: No Limitations - History of Present Illness Initial Comments: The patient was evaluated in the emergency department for symptoms described in the history of present illness. He/she was evaluated in the context of the global COVID-19 pandemic, which necessitated consideration that the patient might be at risk for infection with the virus that causes COVID-19. Institutional protocols and algorithms that pertain to the evaluation of patients at risk for COVID-19 are in a state of rapid change based on information released by regulatory bodies including the CDC and federal and state organizations. These policies and algorithms were followed during the patient's care in the emergency department. Please note that these policies, procedures and recommendations changed on a rapid basis. Cardiology: [facility] cardiology Patient is a 49-year-old gentleman. He has a history of hypertension, heart disease, bare-metal stent and STEMI. This patient was presumptively diagnosed with COVID-19 in August 2019. This patient had a cardiac catheterization in September 2018, which demonstrated an acute thrombotic subtotal occlusion of the mid LAD and a probable late STEMI, with stuttering chest pain for 2 to 3 days, had successful IVUS guided PCI with placement of integrity 3.0 x 22 bare-metal stent, with excellent angiographic and ultrasonographic results. No complications were noted. He was found to have an ejection fraction of 50 to 55%. Additional past medical history includes hypertension, tobacco use, heart disease as noted. The patient presents to the ER with a request for assurance. He complains of nontraumatic bilateral posterior thoracic back pain and pressure, which does not radiate, which is now resolved. He describes a bitter taste in his mouth, and nonspecific shortness of breath, now resolved. To me, he denies chest pain. He states that he had similar symptoms the last time he had a "heart attack." He denies travel, surgery, immobilization, leg pain, leg swelling, DVT and pulmonary embolism risk factors. He reports near total, but not complete compliance with his antiplatelet medications. He states he is pain-free at this moment, and he believes he follows with [facility] cardiology. He does not believe he has had a cardiac stress test, catheterization, or risk stratification, since his catheterization in 2019. Complaint: other (As per history of present illness) -: Sudden Pain Location: other Pain Radiation: none Severity: mild (Pain is now resolved) Severity scale (0 -10): 4 Quality: aching Consistency: now resolved Improves With: nothing Worsens With: nothing Other Symptoms: acid taste in mouth Treatments Prior to Arrival: aspirin Aspirin use within the Past 7 Days: (0) No - Related Data On Oral Contraceptives: No Previous Rx's Medication Instructions Recorded Last Taken Type Aspirin [Aspirin EC] 81 mg PO DAILY #30 tablet. 10/06/18 09/09/19 Rx AtorvaSTATin [Lipitor] 40 mg PO QHS #30 tablet 10/06/18 09/08/19 Rx lisinopriL [Zestril TAB] 20 mg PO QDAY #30 tablet 10/06/18 09/08/19 Rx Clopidogrel [Plavix] 75 mg PO QDAY #30 tablet 03/07/19 09/08/19 Rx Metoprolol [Lopressor TAB] 50 mg PO BID #60 tablet 03/07/19 09/09/19 Rx Esomeprazole Magnesium [NexIUM] 40 mg PO QDAY #30 capsule. 10/20/20 Unknown Rx Allergies Allergy/AdvReac Type Severity Reaction Status Date / Time No Known Allergies Allergy Verified 10/20/20 11:57 Heart Score - HEART Score History: Slightly suspicious EKG: Non-specific Age: 45-65 Risk factors: > 3 risk factors or hx of atherosclerotic disease Troponin: < normal limit HEART Score: 4 - EKG Read Time Time EKG Completed: 05:49 EKG Read Time: 06:00 - Critical Actions Critical Actions: 4-6 pts:12-16.6% risk of adverse cardiac event. Should be admitted ED Review of Systems ROS: Stated complaint: FEELING OF HEART ATTACK/BACK PAIN Other details as noted in HPI Constitutional: other (Denies loss of taste and). denies: fever Eyes: denies: eye discharge ENT: denies: epistaxis Respiratory: denies: cough Cardiovascular: denies: chest pain, syncope Gastrointestinal: denies: abdominal pain, nausea, vomiting, hematemesis, melena, hematochezia Genitourinary: denies: dysuria Musculoskeletal: back pain Psychiatric: anxiety Hematological/Lymphatic: denies: easy bleeding ED Past Medical Hx - Past Medical History Previous Medical History?: Yes Hx Hypertension: Yes Hx Heart Attack/AMI: Yes Hx Congestive Heart Failure: No Hx Diabetes: No Hx Asthma: No Hx COPD: No Hx HIV: No - Surgical History Past Surgical History?: Yes Hx Coronary Stent: Yes (1 stent 10/04/2018) - Social History Smoking Status: Never Smoker Substance Use Type: None - Medications Home Medications: Home Medications Medication Instructions Recorded Confirmed Last Taken Type Aspirin [Aspirin EC] 81 mg PO DAILY #30 tablet. 10/06/18 09/09/19 09/09/19 Rx AtorvaSTATin [Lipitor] 40 mg PO QHS #30 tablet 10/06/18 09/09/19 09/08/19 Rx lisinopriL [Zestril TAB] 20 mg PO QDAY #30 tablet 10/06/18 09/09/19 09/08/19 Rx Clopidogrel [Plavix] 75 mg PO QDAY #30 tablet 03/07/19 09/09/19 09/08/19 Rx Metoprolol [Lopressor TAB] 50 mg PO BID #60 tablet 03/07/19 09/09/19 09/09/19 Rx Esomeprazole Magnesium [NexIUM] 40 mg PO QDAY #30 capsule. 10/20/20 Unknown Rx ED Physical Exam - General Limitations: No Limitations General appearance: alert, in no apparent distress - Head Head exam: Present: atraumatic, normocephalic - Eye Eye exam: Present: normal appearance, EOMI. Absent: nystagmus - ENT ENT exam: Present: normal exam, normal orophraynx, mucous membranes moist, normal external ear exam - Neck Neck exam: Present: normal inspection, full ROM. Absent: tenderness, meningismus - Respiratory Respiratory exam: Present: normal lung sounds bilaterally. Absent: respiratory distress, wheezes, rales, rhonchi, stridor, decreased breath sounds - Cardiovascular Cardiovascular Exam: Present: regular rate, normal rhythm, normal heart sounds. Absent: bradycardia, tachycardia, irregular rhythm, systolic murmur, diastolic murmur, rubs, gallop - GI/Abdominal GI/Abdominal exam: Present: soft. Absent: distended, tenderness, guarding, rebound, rigid, pulsatile mass - Rectal Rectal exam: Present: deferred - Extremities Exam Extremities exam: Present: normal inspection, full ROM, other (2+ pulses noted in the bilateral upper and lower extremities. There is no palpable cord. negative Homans sign. Muscular compartments are soft. The pelvis is stable.). Absent: pedal edema, calf tenderness - Back Exam Back exam: Present: normal inspection, full ROM. Absent: tenderness, CVA tenderness (R), CVA tenderness (L), paraspinal tenderness, vertebral tenderness - Neurological Exam Neurological exam: Present: alert, oriented X3, normal gait, other (No facial droop. Tongue midline. Extraocular movements intact bilaterally. Facial sensation intact to light touch in V1, V2, V3 distribution bilaterally. 5 and a 5 strength in 4 extremities. Sensation intact to light touch in 4 extremities.). Absent: motor sensory deficit - Psychiatric Psychiatric exam: Present: anxious - Skin Skin exam: Present: warm, dry, intact, normal color. Absent: rash ED Course Vital Signs 11/27/20 06:06 Temperature 98.2 F Pulse Rate 69 Respiratory 18 Rate Blood Pressure 168/100 [Left] O2 Sat by Pulse 98 Oximetry DMITRY score - Dmitry Score Age > 65: (0) No Aspirin use within the Past 7 Days: (1) Yes 3 or more CAD Risk Factors: (1) Yes 2 or more Angina events in past 24 hrs: (0) No Known CAD with more than 50% Stenosis: (1) Yes Elevated Cardiac Markers: (0) No ST Deviation Greater than 0.5mm: (0) No DMITRY Score: 3 ED Medical Decision Making - Lab Data Result diagrams: 11/27/20 06:01 11/27/20 06:01 Vital Signs 11/27/20 06:06 Temperature 98.2 F Pulse Rate 69 Respiratory 18 Rate Blood Pressure 168/100 [Left] O2 Sat by Pulse 98 Oximetry Lab Results 11/27/20 11/27/20 Range/Units 06:01 06:01 WBC 6.1 (4.5-11.0) K/mm3 RBC 4.52 (3.65-5.03) M/mm3 Hgb 14.4 (11.8-15.2) gm/dl Hct 42.1 (35.5-45.6) % MCV 93 (84-94) fl MCH 32 (28-32) pg MCHC 34 (32-34) % RDW 12.7 L (13.2-15.2) % Plt Count 233 (140-440) K/mm3 Lymph % (Auto) 45.9 H (13.4-35.0) % [place] % (Auto) 13.2 H (0.0-7.3) % Eos % (Auto) 1.1 (0.0-4.3) % Baso % (Auto) 0.3 (0.0-1.8) % Lymph # (Auto) 2.8 (1.2-5.4) K/mm3 [place] # (Auto) 0.8 (0.0-0.8) K/mm3 Eos # (Auto) 0.1 (0.0-0.4) K/mm3 Baso # (Auto) 0.0 (0.0-0.1) K/mm3 Seg Neutrophils % 39.5 L (40.0-70.0) % Seg Neutrophils # 2.4 (1.8-7.7) K/mm3 Sodium 139 (137-145) mmol/L Potassium 3.4 L (3.6-5.0) mmol/L Chloride 102.3 (98-107) mmol/L Carbon Dioxide 24 (22-30) mmol/L Anion Gap 16 mmol/L BUN 10 (9-20) mg/dL Creatinine 0.9 (0.8-1.3) mg/dL Estimated GFR > 60 ml/min BUN/Creatinine Ratio 11 % Glucose 101 H (75-100) mg/dL Calcium 9.3 (8.4-10.2) mg/dL Total Bilirubin 1.10 (0.1-1.2) mg/dL AST 47 H (5-40) units/L ALT 60 H (7-56) units/L Alkaline Phosphatase 61 (35-129) units/L Troponin T < 0.010 (0.00-0.029) ng/mL Total Protein 6.7 (6.3-8.2) g/dL Albumin 4.5 (3.9-5) g/dL Albumin/Globulin Ratio 2.0 % - EKG Data -: EKG Interpreted by Vt EKG shows normal: sinus rhythm Rate: normal - EKG Data 11/27/20 10:06 Both EKGs today compared to prior EKG from October 20, 2020 EKG #1, interpreted at 0600 a.m. Sinus rhythm, 64 bpm. Normal P wave axis. Normal intervals, left ventricular hypertrophy, atrial premature complex, nonspecific ST abnormality lateral leads. This is not a STEMI. Nonspecific changes when compared to prior EKG. There is pseudonormalized T waves V2. EKG #2, interpreted at 09: 56 Sinus rhythm, 65 bpm. Normal axis, normal intervals, poor R wave progression, persistent nonspecific diffuse ST abnormality, 1, 2, V4, V5 and V6. This is an abnormal EKG. This is not a STEMI. - Radiology Data Radiology results: pending, report reviewed, image reviewed [facility] [address] [place] [address] XRay Report Signed Patient: FAVIOLA GRAHAM JR MR#: [id number] : 1970 Acct:[id number] Age/Sex: 49 / M ADM Date: 11/27/20 Loc: ED Attending Dr: Ordering Physician: ED MD JO Date of Service: 11/27/20 Procedure(s): XR chest routine 2V Accession Number(s): [id number] cc: ED DOCMD Fluoro Time In Minutes: CHEST 2 VIEWS INDICATION / CLINICAL INFORMATION: chestpain. COMPARISON: 10/20/2020 FINDINGS: SUPPORT DEVICES: None. HEART / MEDIASTINUM: No significant abnormality. LUNGS / PLEURA: No significant pulmonary or pleural abnormality. No pneumothorax. ADDITIONAL FINDINGS: No significant additional findings. IMPRESSION: 1. No acute findings. No interval change. Signer Name: Eneida Fontenot MD Signed: 11/27/2020 6:20 AM Workstation Name: [id number] Transcribed By: Dictated By: Eneida Fontenot MD Electronically Authenticated By: Eneida Fontenot MD Signed Date/Time: 11/27/20619 DD/ 8 - Medical Decision Making Differential diagnosis, including but not limited to: Coronary artery disease, mechanical back pain, medical screening examination, acute coronary syndrome Assessment and plan: 49-year-old gentleman, who is not currently tachycardic, tachypneic or hypoxic, who denies DVT and pulmonary embolism risk factors, who is low risk by Wells criteria for pulmonary embolism, PERC negative, equal pulses in upper and lower extremities, no pulsatile abdominal mass, unremarkable x-ray the chest, aortic disease is unlikely, presenting with a complaint of back pain, and global symptomatology reminiscent of his prior [place]. He appears comfortable at this time, and he is pain-free at this time. Troponin negative x1, EKG not consistent with STEMI, but abnormal, and appears to have nonspecific changes when compared to prior. There is no right upper quadrant tenderness, he describes no nausea, vomiting or diarrhea, mild transaminitis reviewed and appreciated, and is asymptomatic. Contacted covering cardiology, Jacquie Coto, working with Dr. Matthews. Admission is recommended by the cardiology team for observation, consideration for repeat cardiac for stratification. Patient's hypokalemia will be addressed, hospital physician, Dr. Kacy Todd, to admit patient to the medical service. Critical care attestation.: If time is entered above; I have spent that time in minutes in the direct care of this critically ill patient, excluding procedure time. ED Disposition Clinical Impression: CAD (coronary artery disease), Medical non-compliance, History of ST elevation myocardial infarction (STEMI), HTN (hypertension), Back pain Disposition: DC-09 OP ADMIT IP TO THIS HOSP Is pt being admited?: Yes Does the pt Need Aspirin: No Condition: Good Instructions: Hypertension (ED)
[2020-11-27] MEDS ORDERED: POTASSIUM CHLORIDE ER 20 MEQ TAB PO ONE (09:53)
[2020-11-27] MEDS ORDERED: ACETAMINOPHEN 325 MG TAB PO ONE (09:53)
[2020-11-27] MEDS ORDERED: NITROGLYCERIN 0.4 MG TAB SUBL SL PRN (10:01)
[2020-11-27] MEDS ORDERED: METOPROLOL TARTRATE 50 MG TAB PO STA (10:10)
[2020-11-27] MEDS ORDERED: CLOPIDOGREL 75 MG TAB PO ONE (10:10)
[2020-11-27] MEDS ORDERED: LISINOPRIL 20 MG TAB PO STA (10:10)
--- NOTE | 2020-11-27 10:22 | History and Physical Report ---
History of Present Illness Chief complaint: My chest hurts, I think i'm having another heart attack History of present illness: 49 YO Male with HTN, Nicotine Dependence, GA, CAD S/P Stent Placement currently on DAPT, Vertigo presents to ED for evaluation. Pt reports "My chest hurts". Pt states that he has experienced pain in his chest over the past two days with persistent and worsening symptoms over the same timeframe. Patient states that his pain is 4-6/10, intermittent but has become more constant, crushing in nature, nonradiating, localized to the chest and back, not worsened with exertion, not relieved with rest. Patient transported to [facility] via private vehicle for further evaluation and care. Patient seen and evaluated in the emergency department. Lab and imaging studies reviewed. Pt found to have A ngina. Pt placed in observation status and admitted to telemetry. Patient denies palpitations, prolonged travel/immobility, individual/family history of DVT/PE/bleeding/blood clotting disorders, skin rash, or recent ill contacts. Prior admission on 09/08/2020 reviewed. All medication listed at time of admission has been reconciled. Past History Past Medical History: CAD, hypertension Past Surgical History: Other (Cardiac stent placement) Social history: smoking Family history: hypertension Medications and Allergies Allergies Allergy/AdvReac Type Severity Reaction Status Date / Time No Known Allergies Allergy Verified 10/20/20 11:57 Home Medications Medication Instructions Recorded Confirmed Last Taken Type Aspirin [Aspirin EC] 81 mg PO DAILY #30 tablet. 10/06/18 09/09/19 09/09/19 Rx AtorvaSTATin [Lipitor] 40 mg PO QHS #30 tablet 10/06/18 09/09/19 09/08/19 Rx lisinopriL [Zestril TAB] 20 mg PO QDAY #30 tablet 10/06/18 09/09/19 09/08/19 Rx Clopidogrel [Plavix] 75 mg PO QDAY #30 tablet 03/07/19 09/09/19 09/08/19 Rx Metoprolol [Lopressor TAB] 50 mg PO BID #60 tablet 03/07/19 09/09/19 09/09/19 Rx Esomeprazole Magnesium [NexIUM] 40 mg PO QDAY #30 capsule. 10/20/20 Unknown Rx Active Meds: Active Medications Nitroglycerin (Nitroglycerin 0.4 Mg Tab Subl) 0.4 mg SL .Q5MIN PRN PRN Reason: Chest Pain Review of Systems Constitutional: no weight loss, no weight gain, no fever, no chills Ears, nose, mouth and throat: no ear pain, no ear discharge, no decreased hearing, no nose pain, no nasal congestion Cardiovascular: chest pain, no orthopnea, no rapid/irregular heart beat, no edema Respiratory: no cough, no cough with sputum, no hemoptysis, no shortness of breath Gastrointestinal: no nausea, no vomiting, no diarrhea, no change in bowel habits Genitourinary Male: no hematuria, no urinary frequency, no nocturia, no incontinence, no erectile dysfunction Rectal: no pain, no incontinence, no bleeding Musculoskeletal: no neck stiffness, no shooting arm pain, no arm numbness/tingling, no low back pain, no shooting leg pain Integumentary: no rash, no pruritis, no redness, no boils Neurological: no head injury, no paralysis, no weakness, no numbness, no tingling, no syncope Psychiatric: no anxiety, no sleep disturbances, no hypersomnia, no change in libido, no suicidal ideation, no hallucinations Endocrine: no cold intolerance, no polyphagia, no excessive thirst, no polyuria, no nocturia, no excessive sweating Hematologic/Lymphatic: no easy bruising, no easy bleeding, no lymphadenopathy, no lymphedema Allergic/Immunologic: no urticaria, no allergic rhinitis, no persistent infections, no anaphylaxis Exam - Constitutional Vitals: Temp Pulse Resp BP Pulse Ox 98.2 F 69 18 168/100 98 11/27/20 06:06 11/27/20 06:06 11/27/20 06:06 11/27/20 06:06 11/27/20 06:06 General appearance: Present: mild distress - EENT Eyes: Present: PERRL ENT: hearing intact, clear oral mucosa - Neck Neck: Present: supple, normal ROM - Respiratory Respiratory effort: normal Respiratory: bilateral: CTA - Cardiovascular Heart Sounds: Present: S1 & S2. Absent: rub, click - Extremities Extremities: pulses symmetrical, No edema Peripheral Pulses: within normal limits - Abdominal General gastrointestinal: Present: soft, non-tender, non-distended, normal bowel sounds Male genitourinary: Present: normal - Integumentary Integumentary: Present: clear, warm, dry - Musculoskeletal Musculoskeletal: gait normal, strength equal bilaterally - Psychiatric Psychiatric: appropriate mood/affect, intact judgment & insight - Neurologic Neurologic: CNII-XII intact, moves all extremities HEART Score - HEART Score EKG: Non-specific Age: 45-65 Risk factors: > 3 risk factors or hx of atherosclerotic disease Troponin: Troponin T < 0.010 ng/mL (0.00-0.029) 11/27/20 06:01 Troponin: < normal limit - Critical Actions Critical Actions: 4-6 pts:12-16.6% risk of adverse cardiac event. Should be admitted Results - Labs CBC & Chem 7: 11/27/20 06:01 11/27/20 06:01 Labs: Abnormal lab results 11/27/20 11/27/20 Range/Units 06:01 06:01 RDW 12.7 L (13.2-15.2) % Lymph % (Auto) 45.9 H (13.4-35.0) % [place] % (Auto) 13.2 H (0.0-7.3) % Seg Neutrophils % 39.5 L (40.0-70.0) % Potassium 3.4 L (3.6-5.0) mmol/L Glucose 101 H (75-100) mg/dL AST 47 H (5-40) units/L ALT 60 H (7-56) units/L Assessment and Plan - Patient Problems (1) Angina at rest Current Visit: Yes Status: Acute Plan to address problem: Admit to telemetry, cardiology team consulted, continue medical management, further care as per cardiology team. (2) Coronary artery disease Current Visit: Yes Status: Acute Qualifiers: Associated angina: with stable angina Plan to address problem: Supportive care, chest pain protocol, dual antiplatelet therapy, pain control. (3) Hypertension Current Visit: Yes Status: Acute Qualifiers: Hypertension type: essential hypertension Qualified Code(s): I10 - Essential (primary) hypertension Plan to address problem: Monitor blood pressure every shift, continue medical management (4) DVT prophylaxis Current Visit: Yes Status: Acute Plan to address problem: SCDs bilateral lower extremities while in bed, patient is ambulatory
[2020-11-27] MEDS ORDERED: ONDANSETRON 4 MG/2 ML INJ IV PRN (11:00)
--- NOTE | 2020-11-27 11:53 | Consultation ---
History of Present Illness Consult date: 11/27/20 Requesting physician: LUKE ANDERSON Consult reason: chest pain History of present illness: Primary [employer] Cq Developer: Sundeep Dominguez Pt is a 49-year-old AA male with a hx of CAD s/p anterior STEMI with PCI of LAD 09/2018, who presents now with complaints of intermittent pain in his mid upper back x 1 day. He reports "moving around a lot" yesterday prior to onset of pain but denies any injuries. Pt states "the pain is like what I felt before I had the heart attack." Episodes last anywhere from a few minutes to hours. Relieved by rest. He denies any overt discomfort in his chest, SOB, or additional cardiac complaints. Trop neg x 2 thus far. ECG reveals no acute ischemic changes. Echo 09/2018 - EF 40-45%, septal wall hypertrophy, multiple regional wall motion abnormalities. Past History Past Medical History: acute ID, CAD, hypertension, hyperlipidemia, other (cardiomyopathy, anxiety) Past Surgical History: PTCA (09/2018). denies: valve replacement, CABG Social history: , lives with family, smoking (former, quit 2018), alcohol abuse (weekly use), other (marijuana use). denies: prescription drug abuse, IV drug use Family history: no significant family history Medications and Allergies Allergies Allergy/AdvReac Type Severity Reaction Status Date / Time No Known Allergies Allergy Verified 10/20/20 11:57 Home Medications Medication Instructions Recorded Confirmed Last Taken Type Aspirin [Aspirin EC] 81 mg PO DAILY #30 tablet. 10/06/18 09/09/19 09/09/19 Rx AtorvaSTATin [Lipitor] 40 mg PO QHS #30 tablet 10/06/18 09/09/19 09/08/19 Rx lisinopriL [Zestril TAB] 20 mg PO QDAY #30 tablet 10/06/18 09/09/19 09/08/19 Rx Clopidogrel [Plavix] 75 mg PO QDAY #30 tablet 03/07/19 09/09/19 09/08/19 Rx Metoprolol [Lopressor TAB] 50 mg PO BID #60 tablet 03/07/19 09/09/19 09/09/19 Rx Esomeprazole Magnesium [NexIUM] 40 mg PO QDAY #30 capsule. 10/20/20 Unknown Rx Active Meds: Active Medications Acetaminophen (Acetaminophen 325 Mg Tab) 650 mg PO Q4H PRN PRN Reason: Pain MILD(1-3)/Fever >100.5/MALONE Albuterol (Albuterol 2.5 Mg/3 Ml Nebu) 2.5 mg IH Q4HRT PRN PRN Reason: Shortness Of Breath Famotidine (Famotidine 20 Mg Tab) 20 mg PO BID KEVIN Nitroglycerin (Nitroglycerin 0.4 Mg Tab Subl) 0.4 mg SL .Q5MIN PRN PRN Reason: Chest Pain Ondansetron HCl (Ondansetron 4 Mg/2 Ml Inj) 4 mg IV Q8H PRN PRN Reason: Nausea And Vomiting Sodium Chloride (Sodium Chloride 0.9% 10 Ml Flush Syringe) 10 ml IV BID KEVIN Sodium Chloride (Sodium Chloride 0.9% 10 Ml Flush Syringe) 10 ml IV PRN PRN PRN Reason: LINE FLUSH Review of Systems Constitutional: no fever, no chills, no sweats Ears, nose, mouth and throat: no nasal congestion, no sore throat Cardiovascular: no chest pain, no orthopnea, no palpitations, no edema, no syncope, no lightheadedness, no shortness of breath, no dyspnea on exertion, no paroxysmal nocturnal dyspnea, no claudication Respiratory: no cough, no shortness of breath, no dyspnea on exertion Gastrointestinal: no abdominal pain, no nausea, no vomiting, no diarrhea, no constipation Genitourinary Male: no dysuria, no flank pain Musculoskeletal: other (mid upper back pain), no neck stiffness, no neck pain Integumentary: no rash, no wounds Neurological: no head injury, no paralysis, no weakness, no parathesias, no numbness, no tingling, no seizures, no syncope, no vertigo, no headaches Endocrine: no cold intolerance, no heat intolerance, no polydipsia, no polyuria Hematologic/Lymphatic: no easy bruising, no easy bleeding Allergic/Immunologic: no anaphylaxis Physical Examination Last Vital Signs Temp 98.2 F 11/27/20 06:06 Pulse 60 11/27/20 10:37 Resp 18 11/27/20 10:37 BP 164/96 11/27/20 10:27 Pulse Ox 98 11/27/20 10:37 General appearance: no acute distress HEENT: Positive: EOMI, Normocephaly, Mucus Membranes Moist Neck: Positive: neck supple, trachea midline. Negative: JVD/HJR Cardiac: Positive: Reg Rate and Rhythm, S1/S2. Negative: Audible Murmur Lungs: Positive: clear to auscultation Neuro: Positive: Grossly Intact Abdomen: Positive: Soft. Negative: Tender Skin: Negative: Rash Musculoskeletal: Normal Range of Motion Extremities: Present: lower extr. pulses. Absent: edema Results 11/27/20 06:01 11/27/20 06:01 Cardiac Enzymes 11/27/20 Range/Units 06:01 AST 47 H (5-40) units/L CBC 11/27/20 Range/Units 06:01 WBC 6.1 (4.5-11.0) K/mm3 RBC 4.52 (3.65-5.03) M/mm3 Hgb 14.4 (11.8-15.2) gm/dl Hct 42.1 (35.5-45.6) % Plt Count 233 (140-440) K/mm3 Lymph # (Auto) 2.8 (1.2-5.4) K/mm3 [place] # (Auto) 0.8 (0.0-0.8) K/mm3 Eos # (Auto) 0.1 (0.0-0.4) K/mm3 Baso # (Auto) 0.0 (0.0-0.1) K/mm3 Comprehensive Metabolic Panel 11/27/20 Range/Units 06:01 Sodium 139 (137-145) mmol/L Potassium 3.4 L (3.6-5.0) mmol/L Chloride 102.3 (98-107) mmol/L Carbon Dioxide 24 (22-30) mmol/L BUN 10 (9-20) mg/dL Creatinine 0.9 (0.8-1.3) mg/dL Glucose 101 H (75-100) mg/dL Calcium 9.3 (8.4-10.2) mg/dL AST 47 H (5-40) units/L ALT 60 H (7-56) units/L Alkaline Phosphatase 61 (35-129) units/L Total Protein 6.7 (6.3-8.2) g/dL Albumin 4.5 (3.9-5) g/dL - Imaging and Cardiology Echo: pending, other (09/2018 - EF 40-45%, septal wall hypertrophy, multiple regional wall motion abnormalities) Cardiac cath: report reviewed (09/2018 - subtotal occlusion of LAD s/p successful PCI w/BMS, no additional significant coronary disease, EF 50-55%, mildly elevated LVEDP) EKG: report reviewed, image reviewed - EKG Interpretation EKG: no acute changes EKG interpretations - EKG Sinus rhythms and dysrhythmias: sinus rhythm Myocardial infarction: anterior ID (old age or i Assessment and Plan AMI r/o. However, given the consistency of pt's symptomatology with his prior STEMI in 2019, recommend at least overnight observation. Obtain echo. May consider Lexiscan stress MPI on Monday pending clinical course. Resume home cardiac regimen. Pt seen in conjunction with Dr. Miah Matthews, who agrees with assessment and plan of care. - Patient Problems (1) Back pain Status: Acute Qualifiers: Back pain location: thoracic back pain Chronicity: acute Back pain laterality: bilateral Qualified Code(s): M54.6 - Pain in thoracic spine (2) CAD (coronary artery disease) Status: Chronic Qualifiers: Coronary Disease-Associated Artery/Lesion type: [place] artery [place] vs. transplanted heart: [place] heart (3) Stented coronary artery Status: Chronic (4) History of ST elevation myocardial infarction (STEMI) Status: Chronic (5) Cardiomyopathy Status: Chronic (6) HTN (hypertension) Status: Chronic Qualifiers: Hypertension type: essential hypertension Qualified Code(s): I10 - Essential (primary) hypertension (7) Tobacco use Status: Resolved (8) Alcohol use Status: Chronic (9) Medical non-compliance Status: Chronic (10) Anxiety Status: Chronic
[2020-11-27] MEDS ORDERED: ALBUTEROL 2.5 MG/3 ML NEBU IH PRN (12:00)
[2020-11-27] MEDS: FAMOTIDINE 20 MG TAB PO SCH ×2 (12:26→22:12)
[2020-11-27] MEDS: METOPROLOL TARTRATE 50 MG TAB PO SCH (22:12)
[2020-11-28 06:02] LABS: BUN/Creatinine Ratio 10; Blood Urea Nitrogen 9 mg/dL (9-20); Calcium 9.4 mg/dL (8.4-10.2); Hemolysis Index 8
--- NOTE | 2020-11-28 08:46 | Progress Note ---
Assessment and Plan Echo pending. Plan for Lexiscan stress MPI on Monday AM. Reduction of EtOH intake d/w pt at bedside. Pt seen in conjunction with Dr. Dominguez, who agrees with assessment and plan of care. - Patient Problems (1) Back pain Current Visit: Yes Status: Resolved Qualifiers: Back pain location: thoracic back pain Chronicity: acute Back pain laterality: bilateral Qualified Code(s): M54.6 - Pain in thoracic spine (2) CAD (coronary artery disease) Current Visit: Yes Status: Chronic Qualifiers: Coronary Disease-Associated Artery/Lesion type: [place] artery [place] vs. transplanted heart: [place] heart (3) Stented coronary artery Current Visit: Yes Status: Chronic (4) History of ST elevation myocardial infarction (STEMI) Current Visit: Yes Status: Chronic (5) Cardiomyopathy Current Visit: Yes Status: Chronic (6) HTN (hypertension) Current Visit: Yes Status: Chronic Qualifiers: Hypertension type: essential hypertension Qualified Code(s): I10 - Essential (primary) hypertension (7) GERD (gastroesophageal reflux disease) Current Visit: Yes Status: Chronic (8) Alcohol use Current Visit: Yes Status: Chronic (9) Tobacco use Current Visit: Yes Status: Resolved (10) Medical non-compliance Current Visit: Yes Status: Chronic (11) Anxiety Current Visit: Yes Status: Chronic Subjective Date of service: 11/28/20 Principal diagnosis: Back Pain, H/o Anterior STEMI/PCI of LAD 09/2018 Interval history: Resting comfortably in bed. Denies any further back pain overnight or this AM. Tele reviewed - SR 60s, no events. Objective Last Vital Signs Temp 98.7 F 11/28/20 04:14 Pulse 60 11/28/20 09:51 Resp 18 11/28/20 04:14 BP 124/76 11/28/20 09:51 Pulse Ox 97 11/28/20 08:56 - Physical Examination General: No Apparent Distress HEENT: Positive: EOMI, Normocephaly, Mucus Membranes Moist Neck: Positive: neck supple, trachea midline. Negative: JVD/HJR Cardiac: Positive: Reg Rate and Rhythm, S1/S2 Lungs: Positive: clear to auscultation Neuro: Positive: Grossly Intact Abdomen: Positive: Soft. Negative: Tender Skin: Negative: Rash Musculoskeletal: No Pain, Normal Range of Motion Extremities: Present: lower extr. pulses. Absent: edema - Labs and Meds Comprehensive Metabolic Panel 11/28/20 Range/Units 04:17 Sodium 141 (137-145) mmol/L Potassium 4.1 D (3.6-5.0) mmol/L Chloride 103.8 (98-107) mmol/L Carbon Dioxide 29 (22-30) mmol/L BUN 9 (9-20) mg/dL Creatinine 0.9 (0.8-1.3) mg/dL Glucose 94 (75-100) mg/dL Calcium 9.4 (8.4-10.2) mg/dL - Imaging and Cardiology EKG: report reviewed, image reviewed Pharmacologic stress test: pending Echo: pending, other (09/2018 - EF 40-45%, septal wall hypertrophy, multiple regional wall motion abnormalities) Cardiac cath: report reviewed (09/2018 - subtotal occlusion of LAD s/p successful PCI w/BMS, no additional significant coronary disease, EF 50-55%, mildly elevated LVEDP) - Telemetry EKG Rhythm: Sinus Rhythm - EKG Sinus rhythms and dysrhythmias: sinus rhythm Myocardial infarction: anterior AR (old age or i
--- NOTE | 2020-11-28 09:32 | Progress Note ---
Assessment and Plan Assessment and plan: Acute coronary syndrome Coronary artery disease History of stented coronary artery Cardiomyopathy Hypertension Tobacco use disorder EtOH abuse Medical noncompliance Anxiety disorder 11/28/2020. Patient with previous subtotal occlusion of LAD s/p successful PCI w/BMS, no additional significant coronary disease, EF 50-55%, mildly elevated LVEDP in 09/2018. Follow-up echocardiogram. Cardiology to consider Lexiscan stress MPI on Monday pending clinical course. Continue home medications. History Interval history: No new issues overnight. Hospitalist Physical - Constitutional Vitals: Temp Pulse Resp BP Pulse Ox 98.7 F 73 18 127/92 97 11/28/20 04:14 11/28/20 04:14 11/28/20 04:14 11/28/20 04:14 11/28/20 08:56 General appearance: Present: no acute distress - EENT Eyes: Present: PERRL, EOM intact ENT: hearing intact, clear oral mucosa, dentition normal - Neck Neck: Present: supple, normal ROM - Respiratory Respiratory effort: normal Respiratory: bilateral: CTA - Cardiovascular Rhythm: regular Heart Sounds: Present: S1 & S2. Absent: gallop, rub - Extremities Extremities: no ischemia, No edema, Full ROM - Abdominal General gastrointestinal: soft, non-tender, non-distended, normal bowel sounds - Integumentary Integumentary: Present: clear, warm, dry - Neurologic Neurologic: CNII-XII intact, moves all extremities HEART Score - HEART Score EKG: Non-specific Age: 45-65 Risk factors: > 3 risk factors or hx of atherosclerotic disease Troponin: Troponin T < 0.010 ng/mL (0.00-0.029) 11/27/20 14:15 Troponin: < normal limit - Critical Actions Critical Actions: 4-6 pts:12-16.6% risk of adverse cardiac event. Should be admitted Results - Labs CBC & Chem 7: 11/27/20 06:01 11/28/20 04:17 Labs: Laboratory Last Values WBC 6.1 K/mm3 (4.5-11.0) 11/27/20 06:01 RBC 4.52 M/mm3 (3.65-5.03) 11/27/20 06:01 Hgb 14.4 gm/dl (11.8-15.2) 11/27/20 06:01 Hct 42.1 % (35.5-45.6) 11/27/20 06:01 MCV 93 fl (84-94) 11/27/20 06:01 MCH 32 pg (28-32) 11/27/20 06:01 MCHC 34 % (32-34) 11/27/20 06:01 RDW 12.7 % (13.2-15.2) L 11/27/20 06:01 Plt Count 233 K/mm3 (140-440) 11/27/20 06:01 Lymph % (Auto) 45.9 % (13.4-35.0) H 11/27/20 06:01 [place] % (Auto) 13.2 % (0.0-7.3) H 11/27/20 06:01 Eos % (Auto) 1.1 % (0.0-4.3) 11/27/20 06:01 Baso % (Auto) 0.3 % (0.0-1.8) 11/27/20 06:01 Lymph # (Auto) 2.8 K/mm3 (1.2-5.4) 11/27/20 06:01 [place] # (Auto) 0.8 K/mm3 (0.0-0.8) 11/27/20 06:01 Eos # (Auto) 0.1 K/mm3 (0.0-0.4) 11/27/20 06:01 Baso # (Auto) 0.0 K/mm3 (0.0-0.1) 11/27/20 06:01 Seg Neutrophils % 39.5 % (40.0-70.0) L 11/27/20 06:01 Seg Neutrophils # 2.4 K/mm3 (1.8-7.7) 11/27/20 06:01 Sodium 141 mmol/L (137-145) 11/28/20 04:17 Potassium 4.1 mmol/L (3.6-5.0) D 11/28/20 04:17 Chloride 103.8 mmol/L (98-107) 11/28/20 04:17 Carbon Dioxide 29 mmol/L (22-30) 11/28/20 04:17 Anion Gap 12 mmol/L 11/28/20 04:17 BUN 9 mg/dL (9-20) 11/28/20 04:17 Creatinine 0.9 mg/dL (0.8-1.3) 11/28/20 04:17 Estimated GFR > 60 ml/min 11/28/20 04:17 BUN/Creatinine Ratio 10 % 11/28/20 04:17 Glucose 94 mg/dL (75-100) 11/28/20 04:17 Calcium 9.4 mg/dL (8.4-10.2) 11/28/20 04:17 Magnesium 1.80 mg/dL (1.7-2.3) 11/27/20 09:54 Total Bilirubin 1.10 mg/dL (0.1-1.2) 11/27/20 06:01 AST 47 units/L (5-40) H 11/27/20 06:01 ALT 60 units/L (7-56) H 11/27/20 06:01 Alkaline Phosphatase 61 units/L (35-129) 11/27/20 06:01 Total Creatine Kinase 203 units/L (55-170) H 11/27/20 09:54 Troponin T < 0.010 ng/mL (0.00-0.029) 11/27/20 14:15 Total Protein 6.7 g/dL (6.3-8.2) 11/27/20 06:01 Albumin 4.5 g/dL (3.9-5) 11/27/20 06:01 Albumin/Globulin Ratio 2.0 % 11/27/20 06:01 Active Medications - Current Medications Current Medications: Generic Name Dose Route Start Last Admin Trade Name Freq PRN Reason Stop Dose Admin Acetaminophen 650 mg 11/27/20 11:00 Acetaminophen 325 Mg Tab PO Q4H PRN Pain MILD(1-3)/Fever >100.5/MALONE Albuterol 2.5 mg 11/27/20 12:00 Albuterol 2.5 Mg/3 Ml Nebu IH Q4HRT PRN Shortness Of Breath Aspirin 81 mg 11/28/20 10:00 Aspirin 81 Mg Tab Chew PO DAILY KEVIN Atorvastatin Calcium 40 mg 11/27/20 22:00 11/27/20 22:12 Atorvastatin 40 Mg Tab PO 40 mg QHS KVEIN Administration Clopidogrel Bisulfate 75 mg 11/28/20 10:00 Clopidogrel 75 Mg Tab PO DAILY KEVIN Famotidine 20 mg 11/27/20 11:00 11/27/20 22:12 Famotidine 20 Mg Tab PO 20 mg BID KEVIN Administration Lisinopril 20 mg 11/28/20 10:00 Lisinopril 20 Mg Tab PO DAILY KEVIN Metoprolol Tartrate 50 mg 11/27/20 22:00 11/27/20 22:12 Metoprolol Tartrate 50 Mg Tab PO 50 mg BID KEVIN Administration Nitroglycerin 0.4 mg 11/27/20 10:01 Nitroglycerin 0.4 Mg Tab Subl SL .Q5MIN PRN Chest Pain Ondansetron HCl 4 mg 11/27/20 11:00 Ondansetron 4 Mg/2 Ml Inj IV Q8H PRN Nausea And Vomiting Sodium Chloride 10 ml 11/27/20 11:00 11/27/20 22:15 Sodium Chloride 0.9% 10 Ml Flush Syringe IV 10 ml BID KEVIN Administration Sodium Chloride 10 ml 11/27/20 11:00 Sodium Chloride 0.9% 10 Ml Flush Syringe IV PRN PRN LINE FLUSH
[2020-11-28] MEDS: LISINOPRIL 20 MG TAB PO SCH (09:51)
[2020-11-28] MEDS: FAMOTIDINE 20 MG TAB PO SCH (09:52)
[2020-11-28] MEDS: CLOPIDOGREL 75 MG TAB PO SCH (09:52)
[2020-11-28] MEDS: ASPIRIN 81 MG TAB CHEW PO SCH (09:52)
[2020-11-28] MEDS: METOPROLOL TARTRATE 50 MG TAB PO SCH ×2 (09:52→21:30)
[2020-11-28] MEDS: PANTOPRAZOLE 40 MG TAB PO SCH (16:41)
[2020-11-29] MEDS: hydrALAZINE 20 MG/1 ML INJ IV PRN ×3 (02:11→21:57)
--- NOTE | 2020-11-29 08:23 | Progress Note ---
Assessment and Plan Assessment and plan: Acute coronary syndrome Coronary artery disease History of stented coronary artery Cardiomyopathy Hypertension Tobacco use disorder EtOH abuse Medical noncompliance Anxiety disorder 11/28/2020. Patient with previous subtotal occlusion of LAD s/p successful PCI w/BMS, no additional significant coronary disease, EF 50-55%, mildly elevated LVEDP in 09/2018. Follow-up echocardiogram. Cardiology to consider Lexiscan stress MPI on Monday pending clinical course. Continue home medications. 11/29/2020. Lexiscan stress MPI for tomorrow morning. Continue home medications. Troponin negative x3. Follow-up echocardiogram results. History Interval history: No new issues overnight. Hospitalist Physical - Constitutional Vitals: Temp Pulse Resp BP Pulse Ox 98.0 F 67 18 135/85 98 11/29/20 04:08 11/29/20 04:08 11/29/20 04:08 11/29/20 04:08 11/29/20 04:08 General appearance: Present: no acute distress - EENT Eyes: Present: PERRL, EOM intact ENT: hearing intact, clear oral mucosa, dentition normal - Neck Neck: Present: supple, normal ROM - Respiratory Respiratory effort: normal Respiratory: bilateral: CTA - Cardiovascular Rhythm: regular Heart Sounds: Present: S1 & S2. Absent: gallop, rub - Extremities Extremities: no ischemia, No edema, Full ROM - Abdominal General gastrointestinal: soft, non-tender, non-distended, normal bowel sounds - Integumentary Integumentary: Present: clear, warm, dry - Neurologic Neurologic: CNII-XII intact, moves all extremities HEART Score - HEART Score EKG: Non-specific Age: 45-65 Risk factors: > 3 risk factors or hx of atherosclerotic disease Troponin: Troponin T < 0.010 ng/mL (0.00-0.029) 11/27/20 14:15 Troponin: < normal limit - Critical Actions Critical Actions: 4-6 pts:12-16.6% risk of adverse cardiac event. Should be admitted Results - Labs CBC & Chem 7: 11/27/20 06:01 11/28/20 04:17 Labs: Laboratory Last Values WBC 6.1 K/mm3 (4.5-11.0) 11/27/20 06:01 RBC 4.52 M/mm3 (3.65-5.03) 11/27/20 06:01 Hgb 14.4 gm/dl (11.8-15.2) 11/27/20 06:01 Hct 42.1 % (35.5-45.6) 11/27/20 06:01 MCV 93 fl (84-94) 11/27/20 06:01 MCH 32 pg (28-32) 11/27/20 06:01 MCHC 34 % (32-34) 11/27/20 06:01 RDW 12.7 % (13.2-15.2) L 11/27/20 06:01 Plt Count 233 K/mm3 (140-440) 11/27/20 06:01 Lymph % (Auto) 45.9 % (13.4-35.0) H 11/27/20 06:01 [place] % (Auto) 13.2 % (0.0-7.3) H 11/27/20 06:01 Eos % (Auto) 1.1 % (0.0-4.3) 11/27/20 06:01 Baso % (Auto) 0.3 % (0.0-1.8) 11/27/20 06:01 Lymph # (Auto) 2.8 K/mm3 (1.2-5.4) 11/27/20 06:01 [place] # (Auto) 0.8 K/mm3 (0.0-0.8) 11/27/20 06:01 Eos # (Auto) 0.1 K/mm3 (0.0-0.4) 11/27/20 06:01 Baso # (Auto) 0.0 K/mm3 (0.0-0.1) 11/27/20 06:01 Seg Neutrophils % 39.5 % (40.0-70.0) L 11/27/20 06:01 Seg Neutrophils # 2.4 K/mm3 (1.8-7.7) 11/27/20 06:01 Sodium 141 mmol/L (137-145) 11/28/20 04:17 Potassium 4.1 mmol/L (3.6-5.0) D 11/28/20 04:17 Chloride 103.8 mmol/L (98-107) 11/28/20 04:17 Carbon Dioxide 29 mmol/L (22-30) 11/28/20 04:17 Anion Gap 12 mmol/L 11/28/20 04:17 BUN 9 mg/dL (9-20) 11/28/20 04:17 Creatinine 0.9 mg/dL (0.8-1.3) 11/28/20 04:17 Estimated GFR > 60 ml/min 11/28/20 04:17 BUN/Creatinine Ratio 10 % 11/28/20 04:17 Glucose 94 mg/dL (75-100) 11/28/20 04:17 Calcium 9.4 mg/dL (8.4-10.2) 11/28/20 04:17 Magnesium 1.80 mg/dL (1.7-2.3) 11/27/20 09:54 Total Bilirubin 1.10 mg/dL (0.1-1.2) 11/27/20 06:01 AST 47 units/L (5-40) H 11/27/20 06:01 ALT 60 units/L (7-56) H 11/27/20 06:01 Alkaline Phosphatase 61 units/L (35-129) 11/27/20 06:01 Total Creatine Kinase 203 units/L (55-170) H 11/27/20 09:54 Troponin T < 0.010 ng/mL (0.00-0.029) 11/27/20 14:15 Total Protein 6.7 g/dL (6.3-8.2) 11/27/20 06:01 Albumin 4.5 g/dL (3.9-5) 11/27/20 06:01 Albumin/Globulin Ratio 2.0 % 11/27/20 06:01 Joseph/IV: Voiding Method Toilet Active Medications - Current Medications Current Medications: Generic Name Dose Route Start Last Admin Trade Name Freq PRN Reason Stop Dose Admin Acetaminophen 650 mg 11/27/20 11:00 Acetaminophen 325 Mg Tab PO Q4H PRN Pain MILD(1-3)/Fever >100.5/MALONE Albuterol 2.5 mg 11/27/20 12:00 Albuterol 2.5 Mg/3 Ml Nebu IH Q4HRT PRN Shortness Of Breath Aspirin 81 mg 11/28/20 10:00 11/28/20 09:52 Aspirin 81 Mg Tab Chew PO 81 mg DAILY KEVIN Administration Atorvastatin Calcium 40 mg 11/27/20 22:00 11/28/20 21:30 Atorvastatin 40 Mg Tab PO 40 mg QHS KEVIN Administration Clopidogrel Bisulfate 75 mg 11/28/20 10:00 11/28/20 09:52 Clopidogrel 75 Mg Tab PO 75 mg DAILY KEVIN Administration Hydralazine HCl 5 mg 11/29/20 01:46 11/29/20 02:11 Hydralazine 20 Mg/1 Ml Inj IV 5 mg Q4H PRN Administration Hypertension Lisinopril 20 mg 11/28/20 10:00 11/28/20 09:51 Lisinopril 20 Mg Tab PO 20 mg DAILY KEVIN Administration Metoprolol Tartrate 50 mg 11/27/20 22:00 11/28/20 21:30 Metoprolol Tartrate 50 Mg Tab PO 50 mg BID KEVIN Administration Nitroglycerin 0.4 mg 11/27/20 10:01 Nitroglycerin 0.4 Mg Tab Subl SL .Q5MIN PRN Chest Pain Ondansetron HCl 4 mg 11/27/20 11:00 Ondansetron 4 Mg/2 Ml Inj IV Q8H PRN Nausea And Vomiting Pantoprazole Sodium 40 mg 11/28/20 17:00 11/28/20 16:41 Pantoprazole 40 Mg Tab PO 40 mg QDAC KEVIN Administration Sodium Chloride 10 ml 11/27/20 11:00 11/28/20 21:30 Sodium Chloride 0.9% 10 Ml Flush Syringe IV 10 ml BID KEVIN Administration Sodium Chloride 10 ml 11/27/20 11:00 Sodium Chloride 0.9% 10 Ml Flush Syringe IV PRN PRN LINE FLUSH
--- NOTE | 2020-11-29 08:53 | Progress Note ---
Assessment and Plan Echo pending. Plan for Lexiscan stress MPI in AM. NPO after midnight. BP remotely elevated overnight. Improved now. Will optimize antihypertensive regimen as needed. Reduction of EtOH intake d/w pt at bedside. May consider outpatient sleep eval. Pt seen in conjunction with Dr. Dominguez, who agrees with assessment and plan of care. - Patient Problems (1) Back pain Current Visit: Yes Status: Resolved Qualifiers: Back pain location: thoracic back pain Chronicity: acute Back pain laterality: bilateral Qualified Code(s): M54.6 - Pain in thoracic spine (2) CAD (coronary artery disease) Current Visit: Yes Status: Chronic Qualifiers: Coronary Disease-Associated Artery/Lesion type: [place] artery [place] vs. transplanted heart: [place] heart (3) Stented coronary artery Current Visit: Yes Status: Chronic (4) History of ST elevation myocardial infarction (STEMI) Current Visit: Yes Status: Chronic (5) Cardiomyopathy Current Visit: Yes Status: Chronic (6) HTN (hypertension) Current Visit: Yes Status: Chronic Qualifiers: Hypertension type: essential hypertension Qualified Code(s): I10 - Essential (primary) hypertension (7) GERD (gastroesophageal reflux disease) Current Visit: Yes Status: Chronic (8) Alcohol use Current Visit: Yes Status: Chronic (9) Tobacco use Current Visit: Yes Status: Resolved (10) Medical non-compliance Current Visit: Yes Status: Chronic (11) Anxiety Current Visit: Yes Status: Chronic Subjective Date of service: 11/29/20 Principal diagnosis: Back Pain, H/o Anterior STEMI/PCI of LAD 09/2018 Interval history: Resting comfortably in bed. No complaints. Tele reviewed - SR 70-80s (down to 40s overnight while sleeping), no events. Objective Last Vital Signs Temp 98.0 F 11/29/20 04:08 Pulse 67 11/29/20 04:08 Resp 18 11/29/20 04:08 BP 135/85 11/29/20 04:08 Pulse Ox 98 11/29/20 04:08 - Physical Examination General: No Apparent Distress HEENT: Positive: EOMI, Normocephaly, Mucus Membranes Moist Neck: Positive: neck supple, trachea midline. Negative: JVD/HJR Cardiac: Positive: Reg Rate and Rhythm, irregularly irregular Lungs: Positive: clear to auscultation Neuro: Positive: Grossly Intact Abdomen: Positive: Soft. Negative: Tender Skin: Negative: Rash Musculoskeletal: No Pain, Normal Range of Motion Extremities: Present: lower extr. pulses. Absent: edema - Imaging and Cardiology EKG: report reviewed, image reviewed Pharmacologic stress test: pending Echo: pending, other (09/2018 - EF 40-45%, septal wall hypertrophy, multiple regional wall motion abnormalities) Cardiac cath: report reviewed (09/2018 - subtotal occlusion of LAD s/p successful PCI w/BMS, no additional significant coronary disease, EF 50-55%, mildly elevated LVEDP) - Telemetry EKG Rhythm: Sinus Rhythm - EKG Sinus rhythms and dysrhythmias: sinus rhythm Myocardial infarction: anterior HI (old age or i
[2020-11-29] MEDS: ASPIRIN 81 MG TAB CHEW PO SCH (11:26)
[2020-11-29] MEDS: METOPROLOL TARTRATE 50 MG TAB PO SCH ×2 (11:26→21:56)
[2020-11-29] MEDS: LISINOPRIL 20 MG TAB PO SCH (11:31)
[2020-11-29] MEDS: CLOPIDOGREL 75 MG TAB PO SCH (11:32)
[2020-11-29] MEDS: PANTOPRAZOLE 40 MG TAB PO SCH (11:37)
[2020-11-29] MEDS: ACETAMINOPHEN 325 MG TAB PO PRN ×3 (13:32→21:56)
[2020-11-29] MEDS ORDERED: MORPHINE 2 MG/1 ML INJ IV PRN (19:25)
[2020-11-30] MEDS ORDERED: REGADENOSON 0.4 MG/5 ML INJ IV ONE (07:35)
--- NOTE | 2020-11-30 08:24 | Discharge Summary ---
Providers - Providers Date of Admission: 11/27/20 10:41 Date of discharge: 11/30/20 Attending physician: LUIS ENRIQUE KNIGHT 11/27/20 09:57 Consult to Physician [CONS] Urgent Comment: Consulting Provider: AZRA LARSON Physician Instructions: Reason For Exam: cad, abnormal ekg Primary care physician: [facility], Hospitalization Reason for admission: cp Condition: Good Hospital course: 49-year-old AA male with a hx of CAD s/p anterior STEMI with PCI of LAD 09/2018, who presented with complaints of intermittent pain in his mid upper back x 1 day [employer]. 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 Pt stated "the pain is like what I felt before I had the heart attack." Episodes lasted anywhere from a few minutes to hours. Relieved by rest. He denied any overt discomfort in his chest, SOB, or additional cardiac complaints. Trop neg and ECG revealed no acute ischemic changes. Cardiology was consulted and recommended echocardiogram and Lexiscan MPI. These tests are pending and if found to be negative. Patient will likely discharge home with diagnosis of GERD for chest pain. The patient will be continued on Zestril 20 mg daily, Plavix 75 mg daily, aspirin 81 mg daily, Lipitor 40 mg daily, and metoprolol 50 mg twice daily. Dedicated discharge time 35 minutes Disposition: DC-01 TO HOME OR SELFCARE Final Discharge Diagnosis (Prints w/discharge instructions): Acute coronary syndrome, coronary artery disease, history of cardiomyopathy, hypertension, GERD, history of tobacco use disorder, alcohol use Core Measure Documentation - Palliative Care Palliative Care/ Comfort Measures: Not Applicable - Core Measures Any of the following diagnoses?: none Exam - Constitutional Vitals: Temp Pulse Resp BP Pulse Ox 98.1 F 74 18 135/90 97 11/30/20 03:52 11/30/20 05:00 11/30/20 03:52 11/30/20 03:52 11/30/20 03:52 General appearance: Present: no acute distress, well-nourished - EENT Eyes: Present: PERRL ENT: hearing intact, clear oral mucosa - Neck Neck: Present: supple, normal ROM - Respiratory Respiratory effort: normal Respiratory: bilateral: CTA - Cardiovascular Heart Sounds: Present: S1 & S2. Absent: rub, click - Extremities Extremities: pulses symmetrical, No edema Peripheral Pulses: within normal limits - Abdominal General gastrointestinal: Present: soft, non-tender, non-distended, normal bowel sounds Male genitourinary: Present: normal - Integumentary Integumentary: Present: clear, warm, dry - Musculoskeletal Musculoskeletal: gait normal, strength equal bilaterally - Psychiatric Psychiatric: appropriate mood/affect, intact judgment & insight - Neurologic Neurologic: CNII-XII intact, moves all extremities Plan Activity: advance as tolerated Weight Bearing Status: Weight Bear as Tolerated Diet: low fat, low cholesterol, low salt [facility]Primary Care Provider] - 7 Days AZRA LARSON MD [Staff Physician] - 7 Days Prescriptions: Losartan [Cozaar] 25 mg PO QDAY #30 AtorvaSTATin [Lipitor] 40 mg PO QHS #30 tablet Metoprolol [Lopressor TAB] 50 mg PO BID #60 tablet Esomeprazole Magnesium [NexIUM] 40 mg PO QDAY #30 capsule. Esomeprazole Magnesium [NexIUM] 40 mg PO QDAY #30 Clopidogrel [Plavix] 75 mg PO QDAY #30 tablet
[2020-11-30] MEDS ORDERED: HEPARIN 5,000 UNIT/1 ML VIAL SUB-Q SCH (10:00)
[2020-11-30] MEDS: CLOPIDOGREL 75 MG TAB PO SCH (11:39)
[2020-11-30] MEDS: METOPROLOL TARTRATE 50 MG TAB PO SCH (11:39)
[2020-11-30] MEDS: ASPIRIN 81 MG TAB CHEW PO SCH (11:39)
[2020-11-30] MEDS: LISINOPRIL 20 MG TAB PO SCH (11:40)
[2020-11-30] MEDS: PANTOPRAZOLE 40 MG TAB PO SCH (11:43)
--- NOTE | 2020-11-30 12:43 | Progress Note ---
<ALEKSANDR RICHMOND - Last Filed: 11/30/20 15:17> Assessment and Plan Coronary artery disease with history of STEMI s/p stented coronary artery * Troponins are negative x3. AMI ruled out. Continue long-term DAPT with ASA 81, Plavix 75 mg. * Exercise MPI stress test (11/30/2020): Negative for reversible ischemia. Estimated EF 67% History of cardiomyopathy * Echocardiogram (2018): EF 40 to 45%. Repeat echocardiogram is pending * Continue goal-directed therapy with cardioprotective regimen: ASA 81 mg, atorvastatin 40 mg, metoprolol 50 mg twice daily, lisinopril 20 mg daily. Request for outpatient cardiac rehab has been placed. EtOH use * Cessation/reduction is encouraged with medical supervision DVT prophylaxis * Heparin SQ Echocardiogram is pending results. Will follow Patient should follow-up with Dr Dominguez, [facility] heart specialists in our [place] office on 12/28/2020 at 3 PM. #[phone] Recommend outpatient follow-up with pulmonology to assess for obstructive sleep apnea Pt seen in conjunction with Dr. Jean ePdro, who agrees with assessment and plan of care. - Patient Problems (1) Back pain Current Visit: Yes Status: Resolved Qualifiers: Back pain location: thoracic back pain Chronicity: acute Back pain laterality: bilateral Qualified Code(s): M54.6 - Pain in thoracic spine (2) CAD (coronary artery disease) Current Visit: Yes Status: Chronic Qualifiers: Coronary Disease-Associated Artery/Lesion type: [place] artery [place] vs. transplanted heart: [place] heart (3) Stented coronary artery Current Visit: Yes Status: Chronic (4) History of ST elevation myocardial infarction (STEMI) Current Visit: Yes Status: Chronic (5) Cardiomyopathy Current Visit: Yes Status: Chronic (6) HTN (hypertension) Current Visit: Yes Status: Chronic Qualifiers: Hypertension type: essential hypertension Qualified Code(s): I10 - Essential (primary) hypertension (7) GERD (gastroesophageal reflux disease) Current Visit: Yes Status: Chronic (8) Alcohol use Current Visit: Yes Status: Chronic (9) Tobacco use Current Visit: Yes Status: Resolved (10) Medical non-compliance Current Visit: Yes Status: Chronic (11) Anxiety Current Visit: Yes Status: Chronic Subjective Date of service: 11/30/20 Principal diagnosis: Back Pain, H/o Anterior STEMI/PCI of LAD 09/2018 Interval history: Patient resting comfortably in bed. No shortness of breath or chest pain overnight Telemetry reviewed: Sinus rhythm 70 with low of 49 sinus bradycardia overnight. No events Objective Last Vital Signs Temp 98.1 F 11/30/20 03:52 Pulse 74 11/30/20 05:00 Resp 18 11/30/20 03:52 BP 135/90 11/30/20 03:52 Pulse Ox 97 11/30/20 03:52 - Physical Examination General: No Apparent Distress HEENT: Positive: EOMI, Normocephaly, Mucus Membranes Moist Neck: Positive: neck supple, trachea midline. Negative: JVD/HJR Cardiac: Positive: Reg Rate and Rhythm, S1/S2 Lungs: Positive: Normal Exam, Normal Breath Sounds Neuro: Positive: Grossly Intact Abdomen: Positive: Soft. Negative: Tender Skin: Negative: Rash Musculoskeletal: No Pain, Normal Range of Motion Extremities: Present: lower extr. pulses. Absent: edema - Imaging and Cardiology EKG: report reviewed, image reviewed Nuclear stress test: pending Echo: pending, other (09/2018 - EF 40-45%, septal wall hypertrophy, multiple regional wall motion abnormalities) Cardiac cath: report reviewed (09/2018 - subtotal occlusion of LAD s/p successful PCI w/BMS, no additional significant coronary disease, EF 50-55%, mildly elevated LVEDP) - Telemetry EKG Rhythm: Sinus Rhythm - EKG Sinus rhythms and dysrhythmias: sinus rhythm Myocardial infarction: anterior [place] (old age or i <SESAR PEDRO M - Last Filed: 11/30/20 17:34> Assessment and Plan ECHO 11/27/20: Normal LV systolic function, EF 55-60%, trace TR Objective Vital Signs Temp Pulse Resp BP Pulse Ox 11/30/20 10:47 140/95 11/30/20 10:46 140/95 11/30/20 10:45 142/98 11/30/20 10:44 143/95 11/30/20 10:43 140/104 11/30/20 10:42 140/102 11/30/20 10:41 138/96 11/30/20 10:40 139/99 11/30/20 10:38 144/97 11/30/20 10:37 133/95 11/30/20 10:36 137/102 11/30/20 10:34 152/105 11/30/20 10:33 167/111 11/30/20 09:50 130/95 11/30/20 07:12 98.7 F 86 20 137/91 100 11/30/20 05:00 74 11/30/20 03:52 98.1 F 82 18 135/90 97 11/29/20 23:29 98.0 F 83 20 108/65 96 11/29/20 21:00 77 11/29/20 19:09 98.1 F 70 18 155/90 98
[2020-11-30 13:14] VITALS: BP 140/95
--- NOTE | 2020-11-30 17:34 | Event Note ---
Date: 11/30/20 ECHO 11/27/20: Normal LV systolic function, EF 55-60%
--- NOTE | 2020-12-03 10:44 | Nuclear Medicine Report ---
APPROVED REPORT Exam: Nuclear Stress Test Indication: Chest pain BMI: 0 Stress Test Details HR Resting HR: 71 bpm Max HR Achieved: 163 bpm Max Heart Rate (APMHR): 173 bpm Target HR (85% APMHR): 147 bpm % of APMHR: 94 Recovery HR: 84 bpm HR response to stress: Normal HR response to stress BP Resting BP: 130/95 mmHg Max BP: 180/105 mmHg Recovery BP: 152/80 mmHg BP response to stress: Abnormal hypertensive response to stress. ECG Resting ECG: Sinus Rhythm Stress ECG: Sinus Tachycardia ST Change: None Arrhythmia: None Clinical Reason for Termination: Fatigue Stress Symptoms: None Exercise duration: 6 min 15 sec Exercise capacity: 7.4 METs Overall Exercise Capacity for Age: Good Stress ECG Conclusion ECG: Non-ischemic NM EXAM: Myocardial Perfusion REST/STRESS Imaging Protocol: Rest TI-201/Stress Tc-99m Resting Data Rest SPECT myocardial perfusion imaging was performed in supine position 45 minutes following the intravenous injection of 10 mCi of Tc-99m Myoview. Time of rest injection: 0945 Exercise Stress At peak stress, the patient was injected intravenously with 28mCi of Tc-99m Myoview. Time of stress injection: 1040 Gated Stress SPECT was performed 30 minutes after stress injection. The images were gated to evaluate regional wall motion and calculate left ventricular ejection fraction. Study Quality Study: excellent Lung Uptake: Normal Study Data Post stress, the left ventricular ejection was 67%.. TID = 1.01. Perfusion Wall Motion Normal left ventricular size and function with no regional wall motion abnormalities. Normal left ventricular size and function with no regional wall motion abnormalities. Nuclear Conclusion Post stress, the left ventricular ejection was 67%.. The rest and stress images show normal left ventricular wall motion. Normal left ventricular size and function with no regional wall motion abnormalities. The rest and stress images show normal perfusion. No evidence of stress induced ischemia or prior myocardial infarction. Conclusion ECG: Non-ischemic
--- NOTE | 2020-12-03 11:14 | Electrocardiograph Report ---
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
--- NOTE | 2020-12-03 11:16 | Electrocardiograph Report ---
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
== END 2020-11-30 17:56 | disposition home or self-care (01) | DRG 303 ==
LOC: ED 05:31 → 4A 10:41 → OBSVTOIN 10:41 → 4A 16:59
PROVIDERS: ADMIT Internal Medicine; ATTEND Hospitalist
DX: I25.10 Atherosclerotic heart disease of native coronary artery without angina pectoris (principal); I24.9 Acute ischemic heart disease, unspecified; I42.9 Cardiomyopathy, unspecified; M54.6 Pain in thoracic spine; K21.9 Gastro-esophageal reflux disease without esophagitis; F10.10 Alcohol abuse, uncomplicated; F41.9 Anxiety disorder, unspecified; I10 Essential (primary) hypertension; Z79.899 Other long term (current) drug therapy; Z79.82 Long term (current) use of aspirin; Z82.49 Family history of ischemic heart disease and other diseases of the circulatory system; Z91.14 Patient's other noncompliance with medication regimen; Z87.891 Personal history of nicotine dependence; Z95.1 Presence of aortocoronary bypass graft
CPT/HCPCS: 36415; 71046; 78452; 80048; 80053; 82550; 83735; 84484; 85025; 93005; 93017; 93306; G0378; A9270-GY; A9502; J0360; J1644; J2270

== ENCOUNTER 2021-08-18 15:10 | Emergency (ER) | payer SELFPAY ==
[2021-08-18] MEDS ORDERED: KETOROLAC 30 MG/1 ML INJ IM ONE (16:05)
[2021-08-18 16:47] LABS: Basophils % (Auto) 0.6 % (0.0-1.8); Eosinophils % (Auto) 0.5 % (0.0-4.3); Hematocrit 40.8 % (35.5-45.6); Hemoglobin 14.3 gm/dl (11.8-15.2); Lymphocytes # (Auto) 3.3 K/mm3 (1.2-5.4); Lymphocytes % (Auto) 50.8 % (13.4-35.0); Mean Corpuscular HGB Conc 35 % (32-34); Mean Corpuscular Volume 95 fl (84-94); Monocytes # (Auto) 0.8 K/mm3 (0.0-0.8); Monocytes % (Auto) 12.8 % (0.0-7.3); Platelet Count 246 K/mm3 (140-440)
[2021-08-18 17:05] LABS: Creatine Kinase MB 1.3 ng/mL (0.0-4.0)
--- NOTE | 2021-08-18 17:05 | Emergency Department Report ---
ED General Adult HPI - General Chief complaint: Pain General Stated complaint: UPPER BACK AND SHOULDER PAIN/PRIOR HEART ATTACK Source: patient Mode of arrival: Ambulatory Limitations: No Limitations - History of Present Illness Initial comments: 50 y/o Male presents to the ED with complaint of left shoulder and right upper back pain x2 days. She states pain is more of a squeezing, cramping type pain. He feels more muscle tension in this area. Patient states just sitting there is no pain. 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 Patient has a history of a myocardial infarction in 2018, hypertension and hyperlipidemia. Patient is alert and oriented x3. He denies any chest pain or shortness of breath at present. Patient denies any trauma. Severity scale (0 -10): 8 - Related Data Previous Rx's Medication Instructions Recorded Last Taken Type Aspirin [Aspirin EC] 81 mg PO DAILY #30 tablet. 10/06/18 11/27/20 Rx Aspirin [Aspirin BABY CHEW TAB] 81 mg PO DAILY tab.chew 11/30/20 Unknown Rx AtorvaSTATin [Lipitor] 40 mg PO QHS tablet 11/30/20 Unknown Rx AtorvaSTATin [Lipitor] 40 mg PO QHS #30 tablet 11/30/20 Unknown Rx Clopidogrel [Plavix] 75 mg PO DAILY tablet 11/30/20 Unknown Rx Clopidogrel [Plavix] 75 mg PO QDAY #30 tablet 11/30/20 Unknown Rx Esomeprazole Magnesium [NexIUM] 40 mg PO QDAY #30 11/30/20 Unknown Rx Esomeprazole Magnesium [NexIUM] 40 mg PO QDAY #30 capsule. 11/30/20 Unknown Rx Losartan [Cozaar] 25 mg PO QDAY #30 11/30/20 Unknown Rx Metoprolol [Lopressor TAB] 50 mg PO BID tablet 11/30/20 Unknown Rx Metoprolol [Lopressor TAB] 50 mg PO BID #60 tablet 11/30/20 Unknown Rx lisinopriL [Zestril TAB] 20 mg PO DAILY tablet 11/30/20 Unknown Rx methOCARBAMOL [Robaxin TAB] 750 mg PO Q8H PRN 15 Days #30 tab 08/18/21 Unknown Rx traMADoL [Ultram] 50 mg PO Q6HR PRN 3 Days #12 tablet 08/18/21 Unknown Rx Allergies Allergy/AdvReac Type Severity Reaction Status Date / Time No Known Allergies Allergy Verified 10/20/20 11:57 ED Review of Systems ROS: Stated complaint: UPPER BACK AND SHOULDER PAIN/PRIOR HEART ATTACK Other details as noted in HPI Constitutional: denies: chills, fever Eyes: denies: eye pain, eye discharge, vision change ENT: denies: ear pain, throat pain Respiratory: denies: cough, shortness of breath, wheezing Cardiovascular: denies: chest pain, palpitations Endocrine: no symptoms reported Gastrointestinal: denies: abdominal pain, nausea, diarrhea Genitourinary: denies: urgency, dysuria Musculoskeletal: denies: back pain, joint swelling, arthralgia Skin: denies: rash, lesions Neurological: denies: headache, weakness, paresthesias Psychiatric: denies: anxiety, depression Hematological/Lymphatic: denies: easy bleeding, easy bruising ED Past Medical Hx - Past Medical History Hx Hypertension: Yes Hx Heart Attack/AMI: Yes (LAD stent) Hx Congestive Heart Failure: No Hx Diabetes: No Hx Asthma: No Hx COPD: No Hx HIV: No - Surgical History Hx Coronary Stent: Yes (1 stent 10/04/2018) - Social History Smoking Status: Former Smoker - Medications Home Medications: Home Medications Medication Instructions Recorded Confirmed Last Taken Type Aspirin [Aspirin EC] 81 mg PO DAILY #30 tablet. 10/06/18 11/27/20 11/27/20 Rx Aspirin [Aspirin BABY CHEW TAB] 81 mg PO DAILY tab.chew 11/30/20 Unknown Rx AtorvaSTATin [Lipitor] 40 mg PO QHS tablet 11/30/20 Unknown Rx AtorvaSTATin [Lipitor] 40 mg PO QHS #30 tablet 11/30/20 Unknown Rx Clopidogrel [Plavix] 75 mg PO DAILY tablet 11/30/20 Unknown Rx Clopidogrel [Plavix] 75 mg PO QDAY #30 tablet 11/30/20 Unknown Rx Esomeprazole Magnesium [NexIUM] 40 mg PO QDAY #30 11/30/20 Unknown Rx Esomeprazole Magnesium [NexIUM] 40 mg PO QDAY #30 capsule. 11/30/20 Unknown Rx Losartan [Cozaar] 25 mg PO QDAY #30 11/30/20 Unknown Rx Metoprolol [Lopressor TAB] 50 mg PO BID tablet 11/30/20 Unknown Rx Metoprolol [Lopressor TAB] 50 mg PO BID #60 tablet 11/30/20 Unknown Rx lisinopriL [Zestril TAB] 20 mg PO DAILY tablet 11/30/20 Unknown Rx methOCARBAMOL [Robaxin TAB] 750 mg PO Q8H PRN 15 Days #30 tab 08/18/21 Unknown Rx traMADoL [Ultram] 50 mg PO Q6HR PRN 3 Days #12 tablet 08/18/21 Unknown Rx ED Physical Exam - General Limitations: No Limitations General appearance: alert, in no apparent distress - Head Head exam: Present: atraumatic, normocephalic - Eye Eye exam: Present: normal appearance - ENT ENT exam: Present: mucous membranes moist - Neck Neck exam: Present: normal inspection - Respiratory Respiratory exam: Present: normal lung sounds bilaterally. Absent: respiratory distress - Cardiovascular Cardiovascular Exam: Present: regular rate, normal rhythm. Absent: systolic murmur, diastolic murmur, rubs, gallop - GI/Abdominal GI/Abdominal exam: Present: soft, normal bowel sounds - Rectal Rectal exam: Present: deferred - Extremities Exam Extremities exam: Present: normal inspection - Back Exam Back exam: Present: normal inspection - Neurological Exam Neurological exam: Present: alert, oriented X3 - Psychiatric Psychiatric exam: Present: normal affect, normal mood - Skin Skin exam: Present: warm, dry, intact, normal color. Absent: rash ED Course Vital Signs 08/18/21 15:23 Temperature 98.5 F Pulse Rate 70 Respiratory 16 Rate Blood Pressure 162/95 [Left] O2 Sat by Pulse 99 Oximetry ED Medical Decision Making - Lab Data Result diagrams: 08/18/21 16:14 08/18/21 16:14 Abnormal Lab Results 08/18/21 08/18/21 08/18/21 16:14 16:14 16:14 WBC 6.4 RBC 4.30 Hgb 14.3 Hct 40.8 MCV 95 H MCH 33 H MCHC 35 H RDW 13.0 L Plt Count 246 Lymph % (Auto) 50.8 H Bertie % (Auto) 12.8 H Eos % (Auto) 0.5 Baso % (Auto) 0.6 Lymph # (Auto) 3.3 Bertie # (Auto) 0.8 Eos # (Auto) 0.0 Baso # (Auto) 0.0 Seg Neutrophils % 35.3 L Seg Neutrophils # 2.3 Sodium 140 Potassium 3.8 Chloride 102.9 Carbon Dioxide 26 Anion Gap 15 BUN 11 Creatinine 1.0 Estimated GFR > 60 BUN/Creatinine Ratio 11 Glucose 102 H Calcium 9.8 Total Bilirubin 1.10 AST 26 ALT 36 Alkaline Phosphatase 60 Total Creatine Kinase 96 CK-MB (CK-2) 1.3 Troponin T < 0.010 Total Protein 7.2 Albumin 4.7 Albumin/Globulin Ratio 1.9 - EKG Data EKG shows normal: sinus rhythm Rate: normal - EKG Data When compared to previous EKG there are: no significant change - Medical Decision Making 50 y/o Male presents to the ED with complaint of left shoulder and right upper back pain x2 days. She states pain is more of a squeezing, cramping type pain. He feels more muscle tension in this area. Patient states just sitting there is no pain. 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 Patient has a history of a myocardial infarction in 2018, hypertension and hyperlipidemia. Patient is alert and oriented x3. He denies any chest pain or shortness of breath at present. Patient denies any trauma. Patient states that he does not use any lifting belt at work. Explained the patient he has to use good mechanical when lifting. Given patient Toradol 30 mg IM. Patient states that squeezing cramping sensation has improved. Rechecked the patient is resting quietly quietly and comfortable and feeling better. I discussed the results of diagnostic study, my clinical impression and the plan for further treatment with the patient. Patient agrees with plan and discharge at this present time. All question addressed. I have given the patient instruction regarding a diagnosis ,expectation ,follow- up and return precaution. I explained to the patient that emergent condition may arise and to return to the ED for new worsen and any new persisting condition. I have explained the importance of following up with the primary care physician or referral physician listed below has instructed. The patient verbalized understanding of discharge instruction. Critical care attestation.: If time is entered above; I have spent that time in minutes in the direct care of this critically ill patient, excluding procedure time. ED Disposition Clinical Impression: Shoulder pain Left shoulder strain Qualifiers: Encounter type: initial encounter Qualified Code(s): S46.912A - Strain of unsp ecified muscle, fascia and tendon at shoulder and upper arm level, left arm, initial encounter Disposition: HOME / SELF CARE / HOMELESS Is pt being admited?: No Does the pt Need Aspirin: No Condition: Stable Instructions: Muscle Strain, [id number], Shoulder Pain, [id number], How to Use Cold Therapy, Jasl-[id number], Musculoskeletal Pain Additional Instructions: use proper mechanics when moving heavy object Take medication she has Return to ED for any worsening symptom Prescriptions: methOCARBAMOL [Robaxin TAB] 750 mg PO Q8H PRN 15 Days #30 tab PRN Reason: Muscle Spasm traMADoL [Ultram] 50 mg PO Q6HR PRN 3 Days #12 tablet PRN Reason: Pain Referrals: PRIMARY CAREMD [Primary Care Provider] - 3-5 Days VELIA LEMOS MD [Staff Physician] - 3-5 Days Forms: Work/School Release Form(ED)
[2021-08-18 17:06] LABS: Alanine Aminotransferase 36 units/L (7-56); Albumin 4.7 g/dL (3.9-5); BUN/Creatinine Ratio 11; Blood Urea Nitrogen 11 mg/dL (9-20); Calcium 9.8 mg/dL (8.4-10.2); Hemolysis Index 22
[2021-08-18 17:46] VITALS: BP 145/93
--- NOTE | 2021-08-19 13:26 | Electrocardiograph Report ---
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
== END 2021-08-18 17:47 | disposition home or self-care (01) ==
LOC: ED 15:10
DX: M25.519 Pain in unspecified shoulder (principal); S46.912A Strain of unspecified muscle, fascia and tendon at shoulder and upper arm level, left arm, initial encounter; X58.XXXA Exposure to other specified factors, initial encounter; Y93.89 Activity, other specified; Y92.89 Other specified places as the place of occurrence of the external cause; Y99.8 Other external cause status
CPT/HCPCS: 36415; 80053; 82550; 82553; 84484; 85025; 93005; 93010; 96372; 99283; J1885

== ENCOUNTER 2021-12-27 16:54 | Emergency (ER) | payer SELFPAY ==
[2021-12-27 17:09] VITALS: BP 120/88
--- NOTE | 2021-12-27 17:46 | XRay Report ---
CHEST 2 VIEWS INDICATION / CLINICAL INFORMATION: sob. COMPARISON: 2 views of the chest from 11/27/2020. FINDINGS: SUPPORT DEVICES: None. HEART / MEDIASTINUM: No significant abnormality. LUNGS / PLEURA: No significant pulmonary abnormality. No significant pleural effusion. No pneumothora x. ADDITIONAL FINDINGS: No significant additional findings. IMPRESSION: 1. No acute abnormality of the chest. Signer Name: Ceasar Purcell MD Signed: 12/27/2021 5:42 PM Workstation Name: [email or web address] [id number]
[2021-12-27 18:37] LABS: Hematocrit 43.3 % (35.5-45.6); Hemoglobin 14.4 gm/dl (11.8-15.2); Mean Corpuscular HGB Conc 33 % (32-34); Mean Corpuscular Volume 95 fl (84-94); Platelet Count 270 K/mm3 (140-440); Red Blood Count 4.57 M/mm3 (3.65-5.03); Red Cell Distribution Width 12.5 % (13.2-15.2)
[2021-12-27 18:57] LABS: Alanine Aminotransferase 16 units/L (7-56); Albumin 4.6 g/dL (3.9-5); BUN/Creatinine Ratio 13; Blood Urea Nitrogen 16 mg/dL (9-20); Calcium 9.8 mg/dL (8.4-10.2); Hemolysis Index 0
[2021-12-27] MEDS ORDERED: HYDROcodone/ACETAMINOPHEN 5-325 MG TAB PO ONE (21:06)
[2021-12-27] MEDS ORDERED: ASPIRIN 81 MG TAB CHEW PO ONE (21:06)
--- NOTE | 2021-12-27 21:50 | XRay Report ---
LEFT ANKLE 3 VIEW(S) INDICATION / CLINICAL INFORMATION: knee pain COMPARISON: None available. FINDINGS: BONES / JOINT(S): No acute fracture or subluxation. No significant arthritis. Incidentally noted prom inent os trigonum versus prominent posterior talar spur. SOFT TISSUES: No significant abnormality. ADDITIONAL FINDINGS: None. Signer Name: Donavan Lane DO Signed: 12/27/2021 9:46 PM Workstation Name: [email or web address]
--- NOTE | 2021-12-27 21:51 | XRay Report ---
LEFT KNEE 3 VIEW(S) INDICATION / CLINICAL INFORMATION: knee pain COMPARISON: None available. FINDINGS: BONES / JOINT(S): No acute fracture or subluxation. No significant arthritis. Small suprapatellar ent hesophyte. SOFT TISSUES: No significant abnormality. ADDITIONAL FINDINGS: None. Signer Name: Donavan Lane DO Signed: 12/27/2021 9:46 PM Workstation Name: [id number]
--- NOTE | 2021-12-27 22:24 | Vascular Lab Report ---
DUPLEX DOPPLER LOWER EXTREMITY VEINS, LEFT INDICATION / CLINICAL INFORMATION: LE pain/swelling. TECHNIQUE: Duplex doppler imaging was performed through the veins of the left lower extremity using v enous compression and other maneuvers. COMPARISON: None available. FINDINGS: LEFT COMMON FEMORAL VEIN: Negative. LEFT FEMORAL VEIN: Negative. LEFT POPLITEAL VEIN: Negative. LEFT CALF VEINS: Negative. ADDITIONAL FINDINGS: None. IMPRESSION: 1. No sonographic evidence for DVT in the left lower extremity. Signer Name: Donavan Lane DO Signed: 12/27/2021 10:20 PM Workstation Name: [id number]
--- NOTE | 2021-12-28 03:39 | Cat Scan Report ---
CTA CHEST WITH CONTRAST INDICATION / CLINICAL INFORMATION: Chest pain. TECHNIQUE: Axial CT images were obtained through the chest after injection of IV contrast. 3 plane VA P and/or 3D reconstructions were produced. All CT scans at this location are performed using CT dose reduction for ALARA by means of automated exposure control. COMPARISON: 09/09/2019. FINDINGS: PULMONARY ARTERIES: No pulmonary emboli. THORACIC AORTA: No significant abnormality. HEART: No significant abnormality. CORONARY ARTERY CALCIFICATION: Mild. MEDIASTINUM / ELIZABETH: No significant abnormality. PLEURA: No pleural effusion. No pneumothorax. LUNGS: No significant abnormality. ADDITIONAL FINDINGS: Enlarged left axillary nodes remain. Several contain calcification. These demons trate no significant change in size. UPPER ABDOMEN: No acute findings. SKELETAL STRUCTURES: No significant osseous abnormality. IMPRESSION: 1. No CT evidence for pulmonary embolism. 2. No acute findings. 3. Enlarged, partially calcified nodes at the left axilla are without significant change. Signer Name: Carlyle Johnsno MD Signed: 12/28/2021 3:35 AM Workstation Name: [id number]
--- NOTE | 2021-12-28 05:17 | Emergency Department Report ---
ED General Adult HPI - General Chief complaint: Dyspnea/Respdistress Stated complaint: SHORT OF BREATH, FEET SWELLING Time Seen by Provider: 12/28/21 05:13 Source: patient Mode of arrival: Ambulatory Limitations: No Limitations - History of Present Illness Initial comments: 50-year-old male who presents for chest pain and left lower extremity edema patient states history of hypertension. Shortness of breath is exacerbated by environmental exposure. Symptoms have been persistent for the past month. There is no nausea vomiting no chest pain no fevers or chills. He denies wheezing or stridor. Patient states concern for blood clot. Labs and diagn ostics noted per protocol evaluate results and dispo appropriately. - Related Data Previous Rx's Medication Instructions Recorded Last Taken Type Aspirin [Aspirin EC] 81 mg PO DAILY #30 tablet. 10/06/18 11/27/20 Rx Aspirin [Aspirin BABY CHEW TAB] 81 mg PO DAILY tab.chew 11/30/20 Unknown Rx AtorvaSTATin [Lipitor] 40 mg PO QHS tablet 11/30/20 Unknown Rx AtorvaSTATin [Lipitor] 40 mg PO QHS #30 tablet 11/30/20 Unknown Rx Clopidogrel [Plavix] 75 mg PO DAILY tablet 11/30/20 Unknown Rx Clopidogrel [Plavix] 75 mg PO QDAY #30 tablet 11/30/20 Unknown Rx Esomeprazole Magnesium [NexIUM] 40 mg PO QDAY #30 11/30/20 Unknown Rx Esomeprazole Magnesium [NexIUM] 40 mg PO QDAY #30 capsule. 11/30/20 Unknown Rx Losartan [Cozaar] 25 mg PO QDAY #30 11/30/20 Unknown Rx Metoprolol [Lopressor TAB] 50 mg PO BID tablet 11/30/20 Unknown Rx Metoprolol [Lopressor TAB] 50 mg PO BID #60 tablet 11/30/20 Unknown Rx lisinopriL [Zestril TAB] 20 mg PO DAILY tablet 11/30/20 Unknown Rx methOCARBAMOL [Robaxin TAB] 750 mg PO Q8H PRN 15 Days #30 tab 08/18/21 Unknown Rx traMADoL [Ultram] 50 mg PO Q6HR PRN 3 Days #12 tablet 08/18/21 Unknown Rx Naproxen 500 mg PO BID PRN #30 tab 12/28/21 Unknown Rx Allergies Allergy/AdvReac Type Severity Reaction Status Date / Time No Known Allergies Allergy Verified 10/20/20 11:57 ED Review of Systems ROS: Stated complaint: SHORT OF BREATH, FEET SWELLING Other details as noted in HPI Constitutional: denies: chills, fever Eyes: denies: eye pain, eye discharge, vision change ENT: congestion. denies: ear pain, throat pain Respiratory: cough, shortness of breath. denies: wheezing Cardiovascular: denies: chest pain, palpitations Endocrine: no symptoms reported Gastrointestinal: denies: abdominal pain, nausea, diarrhea Genitourinary: denies: urgency, dysuria Musculoskeletal: other (Left lower extremity pain radiating from knee to left lower extremity). denies: back pain, joint swelling, arthralgia Skin: denies: rash, lesions Neurological: denies: headache, weakness, paresthesias Psychiatric: denies: anxiety, depression Hematological/Lymphatic: denies: easy bleeding, easy bruising ED Past Medical Hx - Past Medical History Hx Hypertension: Yes Hx Heart Attack/AMI: Yes (LAD stent) Hx Congestive Heart Failure: No Hx Diabetes: No Hx Asthma: No Hx COPD: No Hx HIV: No - Surgical History Hx Coronary Stent: Yes (1 stent 10/04/2018) - Social History Smoking Status: Never Smoker - Medications Home Medications: Home Medications Medication Instructions Recorded Confirmed Last Taken Type Aspirin [Aspirin EC] 81 mg PO DAILY #30 tablet. 10/06/18 11/27/20 11/27/20 Rx Aspirin [Aspirin BABY CHEW TAB] 81 mg PO DAILY tab.chew 11/30/20 Unknown Rx AtorvaSTATin [Lipitor] 40 mg PO QHS tablet 11/30/20 Unknown Rx AtorvaSTATin [Lipitor] 40 mg PO QHS #30 tablet 11/30/20 Unknown Rx Clopidogrel [Plavix] 75 mg PO DAILY tablet 11/30/20 Unknown Rx Clopidogrel [Plavix] 75 mg PO QDAY #30 tablet 11/30/20 Unknown Rx Esomeprazole Magnesium [NexIUM] 40 mg PO QDAY #30 11/30/20 Unknown Rx Esomeprazole Magnesium [NexIUM] 40 mg PO QDAY #30 capsule. 11/30/20 Unknown Rx Losartan [Cozaar] 25 mg PO QDAY #30 11/30/20 Unknown Rx Metoprolol [Lopressor TAB] 50 mg PO BID tablet 11/30/20 Unknown Rx Metoprolol [Lopressor TAB] 50 mg PO BID #60 tablet 11/30/20 Unknown Rx lisinopriL [Zestril TAB] 20 mg PO DAILY tablet 11/30/20 Unknown Rx methOCARBAMOL [Robaxin TAB] 750 mg PO Q8H PRN 15 Days #30 tab 08/18/21 Unknown Rx traMADoL [Ultram] 50 mg PO Q6HR PRN 3 Days #12 tablet 08/18/21 Unknown Rx Naproxen 500 mg PO BID PRN #30 tab 12/28/21 Unknown Rx ED Physical Exam - General Limitations: No Limitations General appearance: alert, in no apparent distress - Head Head exam: Present: normocephalic, normal inspection - Eye Eye exam: Present: PERRL, EOMI Pupils: Present: normal accommodation - ENT ENT exam: Present: mucous membranes moist - Neck Neck exam: Present: normal inspection, full ROM. Absent: tenderness, lymphadenopathy - Respiratory Respiratory exam: Present: normal lung sounds bilaterally, chest wall tenderness (Left lateral anterior wall tenderness no crepitus no step-off no ecchymosis. No sounds are clear throughout.). Absent: respiratory distress, wheezes, rales, rhonchi, stridor, prolonged expiratory - Cardiovascular Cardiovascular Exam: Present: regular rate, normal rhythm, normal heart sounds. Absent: systolic murmur, diastolic murmur, rubs, gallop - GI/Abdominal GI/Abdominal exam: Present: soft, normal bowel sounds. Absent: distended, tenderness, guarding, rebound, rigid, bruit, hernia - Rectal Rectal exam: Present: deferred - Extremities Exam Extremities exam: Present: normal inspection, full ROM (Left lower extremity tib-fib tenderness), normal capillary refill - Expanded Lower Extremity Exam Left Knee exam: Present: normal inspection, full ROM, swelling, pain w/ pronation/supination, full knee extension. Absent: tenderness, abrasion, laceration, ecchymosis, deformity, crepidus, effusion Lower Leg exam: Present: full ROM, tenderness (Anterior T wave). Absent: swelling, abrasion ( and pitting edema), laceration, ecchymosis, deformity, crepidus, dislocation, erythema, palpable cord, Isaias's sign Ankle exam: Present: full ROM. Absent: tenderness Foot/Toe exam: Present: full ROM. Absent: tenderness Neuro vascular tendon exam: Absent: pulse deficit, motor deficit, sensory deficit, tendon deficit Gait: Positive: observed and normal - Back Exam Back exam: Present: normal inspection, full ROM. Absent: CVA tenderness (R), CVA tenderness (L) - Neurological Exam Neurological exam: Present: alert, oriented X3, CN II-XII intact, normal gait - Expanded Neurological Exam Expanded Patient oriented to: Present: person, place, time Speech: Present: fluid speech Motor strength exam: RUE: 5, LUE: 5, RLE: 5, LLE: 5 DTR: ankle (R): 1+, ankle (L): 1+ Best Eye Response (Jeremias): (4) open spontaneously Best Motor Response (Jeremias): (6) obeys commands Best Verbal Response (Jeremias): (5) oriented Verner Total: 15 - Psychiatric Psychiatric exam: Present: normal affect, normal mood - Skin Skin exam: Present: warm, dry, intact, normal color. Absent: rash ED Course Vital Signs 12/27/21 17:05 Temperature 98.5 F Pulse Rate 95 H Respiratory 18 Rate Blood Pressure 120/88 O2 Sat by Pulse 99 Oximetry ED Medical Decision Making - Lab Data Result diagrams: 12/27/21 17:40 12/27/21 17:40 Labs 12/27/21 12/27/21 12/27/21 17:40 17:40 17:40 WBC 8.0 RBC 4.57 Hgb 14.4 Hct 43.3 MCV 95 H MCH 32 MCHC 33 RDW 12.5 L Plt Count 270 D-Dimer Sodium 139 Potassium 3.8 Chloride 98.7 Carbon Dioxide 28 Anion Gap 16 BUN 16 Creatinine 1.2 Estimated GFR > 60 BUN/Creatinine Ratio 13 Glucose 98 Calcium 9.8 Total Bilirubin 1.00 AST 21 ALT 16 Alkaline Phosphatase 63 Troponin T < 0.010 NT-Pro-B Natriuret Pep 14.98 Total Protein 7.9 Albumin 4.6 Albumin/Globulin Ratio 1.4 12/27/21 12/28/21 23:22 03:31 WBC RBC Hgb Hct MCV MCH MCHC RDW Plt Count D-Dimer 1588.01 H Sodium Potassium Chloride Carbon Dioxide Anion Gap BUN Creatinine Estimated GFR BUN/Creatinine Ratio Glucose Calcium Total Bilirubin AST ALT Alkaline Phosphatase Troponin T < 0.010 NT-Pro-B Natriuret Pep Total Protein Albumin Albumin/Globulin Ratio - Radiology Data Radiology results: report reviewed, image reviewed CTA CHEST WITH CONTRAST INDICATION / CLINICAL INFORMATION: Chest pain. TECHNIQUE: Axial CT images were obtained through the chest after injection of IV contrast. 3 plane MIP and/or 3D reconstructions were produced. All CT scans at this location are performed using CT dose reduction for ALARA by means of automated exposure control. COMPARISON: 09/09/2019. FINDINGS: PULMONARY ARTERIES: No pulmonary emboli. THORACIC AORTA: No significant abnormality. HEART: No significant abnormality. CORONARY ARTERY CALCIFICATION: Mild. MEDIASTINUM / ELIZABETH: No significant abnormality. PLEURA: No pleural effusion. No pneumothorax. LUNGS: No significant abnormality. ADDITIONAL FINDINGS: Enlarged left axillary nodes remain. Several contain calcification. These demonstrate no significant change in size. UPPER ABDOMEN: No acute findings. SKELETAL STRUCTURES: No significant osseous abnormality. IMPRESSION: 1. No CT evidence for pulmonary embolism. 2. No acute findings. 3. Enlarged, partially calcified nodes at the left axilla are without significant change. Signer Name: Carlyle Johnson MD Signed: 12/28/2021 3:35 AM Workstation Name: [id number] Transcribed By: BRUCE Dictated By: Carlyle Johnson MD Electronically Authenticated By: Carlyle Johnson MD Signed Date/Time: 12/28/21334 DD/ 5 TD/TT: LEFT KNEE 3 VIEW(S) INDICATION / CLINICAL INFORMATION: knee pain COMPARISON: None available. FINDINGS: BONES / JOINT(S): No acute fracture or subluxation. No significant arthritis. Small suprapatellar enthesophyte. SOFT TISSUES: No significant abnormality. ADDITIONAL FINDINGS: None. Signer Name: Donavan Dewitt DO Signed: 12/27/2021 9:46 PM Workstation Name: [id number] Transcribed By: LEORA Dictated By: DONAVAN DEWITT DO Electronically Authenticated By: DONAVAN DEWITT DO Signed Date/Time: 12/27/212145 DD/ 45 TD/TT: DUPLEX DOPPLER LOWER EXTREMITY VEINS, LEFT INDICATION / CLINICAL INFORMATION: LE pain/swelling. TECHNIQUE: Duplex doppler imaging was performed through the veins of the left lower extremity using venous compression and other maneuvers. COMPARISON: None available. FINDINGS: LEFT COMMON FEMORAL VEIN: Negative. LEFT FEMORAL VEIN: Negative. LEFT POPLITEAL VEIN: Negative. LEFT CALF VEINS: Negative. ADDITIONAL FINDINGS: None. IMPRESSION: 1. No sonographic evidence for DVT in the left lower extremity. Signer Name: Donavan Roldan DO Domingo Signed: 12/27/2021 10:20 PM Workstation Name: [id number] Transcribed By: LEORA Dictated By: DONAVAN DEWITT DO Electronically Authenticated By: DONAVAN DEWITT DO Signed Date/Time: 12/27/212219 DD/ 19 TD/TT: EFT ANKLE 3 VIEW(S) INDICATION / CLINICAL INFORMATION: knee pain COMPARISON: None available. FINDINGS: BONES / JOINT(S): No acute fracture or subluxation. No significant arthritis. Incidentally noted prominent os trigonum versus prominent posterior talar spur. SOFT TISSUES: No significant abnormality. ADDITIONAL FINDINGS: None. Signer Name: Donavan Roldan DO Domingo Signed: 12/27/2021 9:46 PM Workstation Name: [id number] Transcribed By: LEORA Dictated By: DONAVAN DEWITT DO Electronically Authenticated By: DONAVAN DEWITT DO Signed Date/Time: 12/27/212145 DD/ 43 TD/TT: views of the chest from 11/27/2020. FINDINGS: SUPPORT DEVICES: None. HEART / MEDIASTINUM: No significant abnormality. LUNGS / PLEURA: No significant pulmonary abnormality. No significant pleural effusion. No pneumothorax. ADDITIONAL FINDINGS: No significant additional findings. IMPRESSION: 1. No acute abnormality of the chest. Signer Name: Ceasar Purcell MD Signed: 12/27/2021 5:42 PM Workstation Name: [id number] Transcribed By: SURINDER Dictated By: Ceasar Purcell MD Electronically Authenticated By: Ceasar Purcell MD Signed Date/Time: 12/27/211741 DD/ 40 TD/TT: - Medical Decision Making Trays normal no fractures no subluxations no dislocations. Chest x-ray normal no infiltrates no opacities, CTA angio no PE. No soft tissue abnormality. DVT Doppler lower extremity normal no evidence of DVT. Lung sounds remain clear thr oughout respirations remain even and nonlabored. Patient has ambulated from chair to bathroom and back to room without increased shortness of breath or wheezing. Patient is tolerating p.o. intake without symptoms. Plan NSAIDs as needed pain, follow-up with your primary care doctor in 2 to 3 days. Return to emergency should symptoms worsen. Follow-up with dentist in 2 to 3 days. Critical care attestation.: If time is entered above; I have spent that time in minutes in the direct care of this critically ill patient, excluding procedure time. ED Disposition Clinical Impression: Shortness of breath, Lower extremity pain, left Disposition: HOME / SELF CARE / HOMELESS Is pt being admited?: No Does the pt Need Aspirin: No Condition: Stable Instructions: Shortness of Breath, Adult, [id number], Pain Without a Known Cause Additional Instructions: Take medications as prescribed. Follow-up with your doctor in 2 to 3 days. Return to emergency department should symptoms worsen. Prescriptions: Naproxen 500 mg PO BID PRN #30 tab PRN Reason: pain Referrals: AN ROBLES MD [Staff Physician] - 3-5 Days
--- NOTE | 2021-12-29 08:52 | Electrocardiograph Report ---
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
== END 2021-12-28 07:28 | disposition home or self-care (01) ==
LOC: ED 16:54
DX: R06.02 Shortness of breath (principal); M79.662 Pain in left lower leg; I10 Essential (primary) hypertension; I21.9 Acute myocardial infarction, unspecified; Z98.890 Other specified postprocedural states; Z79.899 Other long term (current) drug therapy
CPT/HCPCS: 36415; 71046; 71275; 73562; 73610; 80053; 83880; 84484; 85027; 85379; 93005; 93971; 99284; Q9967